=== PATIENT | male | born 1950 | race Caucasian/White ===

== ENCOUNTER 2019-01-20 06:23 | Day surgery (SDC) | payer OTHER ==
[2019-01-19 12:41] LABS: Absolute Lymphocytes (CBC) 0.4 K/uL (0.7-4.9); Absolute Monocytes 0.3 K/uL (0.1-1.3); Absolute Neutrophil 6.3 K/uL (1.8-8.0); Basophils % 0.4 % (0-1.3); Eosinophils % 0.4 % (0-4.4); Hematocrit 45.2 % (39.6-49.0); Lymphocytes % 5.3 % (15.3-44.8); MPV 8.6 fL (7.6-11.3); Monocytes % 4.6 % (3.3-12.3); RBC Red Blood Cell Count 4.71 M/uL (4.33-5.43)
--- NOTE | 2019-01-19 14:59 | EKG ---
Test Date: 2019-01-19 Test Time: 12:32:05 Case Operator: SAL MEASUREMENT RESULTS: Intervals: Rate: 65 MA: 162 QRSD: 78 QT: 386 QTc: 401 [place]: P: 61 MA: 162 QRS: 57 T: 57 INTERPRETIVE STATEMENTS: Normal sinus rhythm Normal ECG No previous ECG available for comparison Electronically Signed On 01-19-19 14:58:48 CDT by Jese Brewster
--- OUTSIDE RECORDS SUMMARY | 2019-01-20 06:27 | XMS REPORT | Continuity of Care Document ---
:1950 Author Organization Interface Problems Problem Status Onset Date Classification Date Comments Source Reported Medications Medication Details Route Status Patient Ordering Order Source Instructions Provider Date Allergies, Adverse Reactions, Alerts Substance Category Reaction Severity Reaction Status Date Comments Source type Reported Immunizations Immunization Date Given Site Status Last Updated Comments Source Results Order Results Value Reference Date Interpretation Comments Source Name Range Vital Signs Vital Sign Value Date Comments Source Encounters Location Location Encounter Encounter Reason Attending ADM DC Status Source Details Type Number For Provider Date Date Visit Outpatient [id number] EVER 09/02 [facility] Outpatient [id number] EVER 09/29 [facility] Outpatient [id number] Ever 11/11 [facility] Outpatient [id number] Ever 03/10 [facility] Procedures Procedure Code Date Perfomer Comments Source
--- OUTSIDE RECORDS SUMMARY | 2019-01-20 06:28 | XMS REPORT ---
:1950 Author Organization eClinicalWorks Care Team Providers Name Role Phone Mahad Ranjit Provider Role Unavailable Allergies, Adverse Reactions, Alerts Substance Reaction Event Type N.K.D.A. 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, lumbar region Assessment Left hip pain M25.552 Active Assessment Venous stasis dermatitis of both I87.2 Active lower extremities Assessment Tobacco use disorder F17.200 Active Assessment Hemangioma of 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 Active Assessment GERD without esophagitis K21.9 Active Assessment Venous insufficiency I87.2 Active Assessment Lumbosacral radiculopathy M54.17 Active Assessment HTN (hypertension), benign I10 Active Medications Medication Code System Code Instructions Start End Date Status Dosage Date Ibuprofen [facility] 12894190615 200 MG Orally Active 1 tablet Three times a day with food or milk as needed Lisinopril ND 34793126756 20 MG Orally Once Active 1 tablet a day Nicorette ND 16950240099 4 MG Mouth/Throat Active 1 piece as 24 time(s) a day needed Results No Known Results Summary Purpose eClinicalWorks Submission
--- OUTSIDE RECORDS SUMMARY | 2019-01-20 06:28 | XMS REPORT ---
:1950 Author Organization eClinicalWorks Care Team Providers Name Role Phone Mahad [facility] Provider Role Unavailable Allergies, Adverse Reactions, Alerts [...] (hypertension), benign I10 Active Medications Medication Code Code Instructions Start End Status Dosage System Date Date Gabapentin ND 60235527341 300 MG Orally Active 1 capsule Once a day Chantix [facility] 53481623304 0.5 MG X 11 & 1 December 25January Active as directed Starting Month MG X 42 Orally 2018 08, Use as directed 2018 Lisinopril ND 55708280184 30 MG Orally Active 1 tablet Once a day Ibuprofen ND 84518110761 200 MG Orally Active 1 tablet Three times a with food day or milk as needed Nicorette ND 47373647208 4 MG December 25, Inactive 1 piece as Mouth/Throat 2018 needed time(s) a day Chantix ND 52265667829 1 MG Orally December 25, Nov 05, Active 1 tablet Continuing Twice a day 20182018 [facility] Lisinopril [facility] 39821495129 20 Orally Once Active 1 tablet a day Results No Known Results Summary Purpose eClinicalWorks Submission
--- OUTSIDE RECORDS SUMMARY | 2019-01-20 06:28 | XMS REPORT ---
:1950 Author Organization eClinicalWorks Care Team Providers Name Role Phone Mahad Ranjit Provider Role Unavailable Allergies, Adverse Reactions, Alerts Substance Reaction Event Type N.K.D.A. 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 Active Problem HTN (hypertension), benign I10 Active Problem Tobacco use disorder F17.200 Active Problem GERD without esophagitis K21.9 Active Problem Lumbosacral radiculopathy M54.17 Active Problem Left hip pain M25.552 Active Assessment Left hip pain M25.552 Active Assessment GERD without esophagitis K21.9 Active Assessment Tobacco use disorder F17.200 Active Assessment Osteoarthritis of spine with 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
--- OUTSIDE RECORDS SUMMARY | 2019-01-20 06:28 | XMS REPORT ---
[...] Instructions Start End Date Status Dosage Date Nicotine ND 52837453986 21 MG/24HR March 17May 16, Active 1 patch to Transdermal Once 2017 2017 skin a day Ibuprofen ND 83039481207 200 MG Orally Active 1 tablet Three times a day with food or milk as needed Nicorette ND 36849628663 4 MG Mouth/Throat March 17, Active 1 piece as 24 time(s) a day 2018 needed Lisinopril ND 62928778458 10 MG Orally Once Active 1 tablet a day Lisinopril NDC 74796403751 10 Orally Once a Active 1 tablet day Results No Known Results Summary Purpose eClinicalWorks Submission
[2019-01-20] MEDS ORDERED: Ringers Lactate 1,000 ML IV ONE (06:51)
[2019-01-20] MEDS ORDERED: CEFAZOLIN/SWI 1gm 1 GM/10 ML SYR ONE (07:16)
[2019-01-20] MEDS ORDERED: LIDOCAINE 1% MPF 30 ML VIAL ONE (07:20)
[2019-01-20] MEDS ORDERED: PROPOFOL 200 MG/20 ML VIAL IV ONE ×2 (07:24→07:46)
[2019-01-20] MEDS ORDERED: LIDOCAINE 2% MPF 5 ML VIAL ONE (07:24)
[2019-01-20] MEDS ORDERED: MIDAZOLAM HCL 2 MG/2 ML INJ ONE (07:24)
[2019-01-20] MEDS ORDERED: Mastisol Adhesive Liq ONE (08:11)
--- NOTE | 2019-01-20 13:56 | OP ---
Date of Procedure: 01/20/2019 Surgeon: Kashmir Juan MD Preoperative Diagnosis: Left-sided headache, rule out temporal arteritis. Postoperative Diagnosis: Left-sided headache, rule out temporal arteritis. Procedure: Left temporal artery biopsy, Doppler aided. Estimated Blood Loss: Minimal. Specimen: Left temporal artery. Findings: As above. Anesthesia: MAC. Complications: None. Disposition: The patient tolerated the procedure in stable condition, taken to Recovery in good gene ral condition. Description Of Procedure: The patient was brought to the OR and placed in supine position. MAC anes thesia was given. The patient was prepped and draped in usual sterile fashion. Then, Doppler device was used to isolate the brain to the temporal artery, anterior and superior to the left ear. Then, a 4 cm incision was made after lidocaine 1% was infiltrated locally. A 15 blade was used to make an i ncision. Subcutaneous tissue was divided and deep to that, a branch of the temporal artery was identi fied and approximately a 4 cm segment was identified. Proximal and distal control were obtained. Ash e branches were isolated and then, 4 cm branch was excised and sent to pathology. A 4-0 silk was used to tie off the end. Wounds were irrigated. Bleeding was controlled with cautery. Then, 4-0 chromic was used for approximate subcutaneous tissue and close the skin. Sterile dressing was applied. The patient was awakened and taken to Recovery in good general condition. Discharge Note: The patient will go to Day Surgery and home when stable. Disposition: Home. Condition: Stable. Discharge Instructions: Resume home medications and diet. Activity as tolerated. No heavy lifting. Remove outer dressing in 2 days. Shower. Keep wound clean and dry. Keep Steri-Strips on at all t imes. Follow up in my office in 2 weeks. Call for appointment. Follow up with Dr. Mallory in 1 week. Follow up with Dr. Bhardwaj. The patient will be maintained on steroids until pathology comes back. /MODL Voice ID: [id number] Report ID: [id number]
== END 2019-01-20 08:45 | disposition home or self-care (01) ==
LOC: OR 06:23
PROVIDERS: ATTEND Surgery
PROC: 03BT3ZX Excision of Left Temporal Artery, Percutaneous Approach, Diagnostic (ICD-10-PCS; principal; 2019-01-20 07:30)
DX: R51 Headache (principal); I10 Essential (primary) hypertension; F17.200 Nicotine dependence, unspecified, uncomplicated; Z79.899 Other long term (current) drug therapy
CPT/HCPCS: 37609; 93005; 85025; 36415; 88305; J2704 ×2; J2250; J0690

== ENCOUNTER 2019-04-01 19:42 | Emergency (ER) | payer OTHER ==
--- OUTSIDE RECORDS SUMMARY | 2019-04-01 19:45 | XMS REPORT | Summary of Care ---
:1950 Author Organization [facility] Address [address] [place] [address]- Care Team Providers Name Role Phone Perico Mallory Primary Care Physician Encounter [facility] Ben_roldan(FIN) [id number] Date(s): 03/24/19 - 03/24/19 [facility] [address] [place] [address]- [phone] Discharge Disposition: Home or Self Care Attending Physician: Perico Mallory MD Referring Physician: Elvin Weir MD Vital Signs Most recent to oldest [Reference Range]: 1 Height 170.18 cm (03/24/19 2:06 PM) Blood Pressure [90-140/60-90 mmHg] 149/77 mmHg *HI* (03/24/19 2:06 PM) Respiratory Rate [14-20 BRMIN] 16 BRMIN (03/24/19 2:06 PM) Peripheral Pulse Rate [60-100 bpm] 85 bpm (03/24/19 2:06 PM) Weight 112.727 kg (03/24/19 2:06 PM) Body Mass Index 38.92 m2 (03/24/19 2:06 PM) Problem List Condition Effective Dates Status Health Status Informant NICOLETTE positive(Confirmed) Active Hypertension(Confirmed) Active Lumbar radiculopathy(Confirmed) Active Monoclonal gammopathy(Confirmed) Active Morbid obesity(Confirmed) Active Peripheral neuropathy(Confirmed) Active Temporal arteritis(Confirmed) Active Allergies, Adverse Reactions, Alerts No Known Medication Allergies Medications gabapentin 300 mg oral capsule 300 mg=1 cap, PO, TID, # 90 cap, 5 Refill(s), Pharmacy: [facility] # [id number] Start Date: 03/24/19 Stop Date: 09/20/19 Status: OrderedpredniSONE 20 mg oral tablet 20 mg=1 tab, PO, Daily, X 30 day, # 30 tab, 2 Refill(s), Pharmacy: [facility] #[id number] Start Date: 03/24/19 Stop Date: 06/22/19 Status: OrderedVitamin D3 2000 intl units oral tablet 2,000 IntlUnit=1 tab, PO, Daily, # 30 tab, 3 Refill(s), Pharmacy: [id number] Start Date: 02/16/19 Stop Date: 06/16/19 Status: OrderedZanaflex 4 mg oral capsule 4 mg=1 cap, PO, Bedtime, # 30 cap, 2 Refill(s), Pharmacy: [facility] # [id number] Start Date: 03/24/19 Stop Date: 06/22/19 Status: Ordered Results No data available for this section Immunizations No data available for this section Procedures Procedure Date Related Diagnosis Body Site Status Ablation Completed Social History Social History Type Response Employment/School 1 Alcohol Current, Type Beer.2 Smoking Status Current every day smoker; Type: Cigarettes; Exposure to Tobacco Smoke Unable to obtain; Cigarette Smoking Last 365 Days Unable to obtain ; Reg Smoking Cessation Counseling No3 entered on: 03/24/19 1Can release medical information to Dr. Tobin-PCP & friend- Dominique Garcia2Dmohan bahena [email or web address] everyday Assessment and Plan No data available for this section
--- OUTSIDE RECORDS SUMMARY | 2019-04-01 19:45 | XMS REPORT | Summary of Care ---
:1950 Author Organization [facility] Address [address] [place] [address]- Care Team Providers Name Role Phone Perico Mallory Primary Care Physician Encounter [facility] Encntr_roldan(FIN) [id number] Date(s): 09/02/18 - 09/02/18 [facility] [address] [place] [address]- [phone] Discharge Disposition: Home or Self Care Attending Physician: Perico Mallory MD Referring Physician: Elvin Weir MD Vital Signs No data available for this section Problem List Condition Effective Dates Status Health Status Informant NICOLETTE positive(Confirmed) Active Hypertension(Confirmed) Active Lumbar radiculopathy(Confirmed) Active Monoclonal gammopathy(Confirmed) Active Morbid obesity(Confirmed) Active Peripheral neuropathy(Confirmed) Active Temporal arteritis(Confirmed) Active Allergies, Adverse Reactions, Alerts No Known Medication Allergies Medications No data available for this section Results No data available for this section [...] Reg Smoking Cessation Counseling No3 entered on: 03/03/19 1Can release medical information to Dr. Tobin-PCP & friend- Dominique Garcia2Dmohan bahena [id number] everyday Assessment and Plan No data available for this section
--- OUTSIDE RECORDS SUMMARY | 2019-04-01 19:45 | XMS REPORT | Continuity of Care Document ---
:1950 Author Organization [employer] Care Team Providers Name Role Phone [facility] [employer] Unavailable Unavailable Problems Problem Status Onset Classification Date Comments Source Date Reported NICOLETTE positive Active Problem 03/27/2019 [facility] Hypertension Active Problem 03/27/2019 [facility] Lumbar Active Problem 03/27/2019 [facility] radiculopathy [facility] Monoclonal Active Problem 03/27/2019 [facility] gammopathy [facility] Morbid obesity Active Problem 03/27/2019 [facility] Peripheral Active Problem 03/27/2019 [facility] neuropathy [facility] Temporal Active Problem 03/27/2019 [facility] arteritis [facility] Medications Medication Details Route Status Patient Ordering Order Source Instructions Provider Date tizanidine 4 4 mg=1 cap, Active [facility] MG Oral PO, Bedtime, 019 Neuro Capsule # 30 cap, 2 [Zanaflex] Refill(s), Pharmacy: [facility] #[id number] gabapentin 300 mg=1 Active [facility] 300 MG Oral cap, PO, 019 Neuro Capsule TID, # 90 cap, 5 Refill(s), Pharmacy: [facility] #[id number] predniSONE 20 20 mg=1 tab, Active [facility] mg oral PO, Daily, X 019 Neuro tablet 30 day, # 30 tab, 2 Refill(s), Pharmacy: [facility] #[id number] baclofen 10 10 mg=1 tab, Active [facility] mg oral PO, Bedtime, 019 Neuro tablet # 30 tab, 3 Refill(s), Pharmacy: [id number] predniSONE 20 40 mg=2 tab, Active [facility] mg oral PO, Daily, X 019 Neuro tablet 30 day, # 60 tab, 2 Refill(s), Pharmacy: [facility] [id number] Vitamin D3 2,000 Active [facility] 2000 intl IntlUnit=1 019 Neuro units oral tab, PO, tablet Daily, # 30 tab, 3 Refill(s), [facility]acy: [id number] predniSONE 20 40 mg=2 tab, Active [facility] mg oral PO, Daily, X 019 Neuro tablet 30 day, # 60 tab, 2 Refill(s), Pharmacy: [facility] [id number] predniSONE 20 20 mg=1 tab, Inactive [facility] mg oral PO, Daily, X 019 Neuro tablet 30 day, # 30 tab, 2 Refill(s), [id number] predniSONE 20 20 mg=1 tab, No Longer [facility] mg oral PO, Daily, X Active 019 Neuro tablet 30 day, # 30 tab, 2 Refill(s), Pharmacy: [id number] Allergies, Adverse Reactions, Alerts Substance Category Reaction Severity Reaction Status Date Comments Source type Reported No Known Assertion Drug [facility] Medication allergy Neuro Allergies Immunizations No Data Provided for This Section Results No Data Provided for This Section Pathology Reports No Data Provided for This Section Diagnostic Reports No Data Provided for This Section Consultation Notes No Data Provided for This Section Discharge Summaries No Data Provided for This Section History and Physicals No Data Provided for This Section Vital Signs Vital Sign Value Date Comments Source Height 170.18 cm 03/24/2019 [facility] Respitory Rate 16 03/24/2019 [facility] Heart Rate 85 03/24/2019 [facility] Weight 112.727 03/24/2019 [facility] BMI Calculated 38.92 03/24/2019 [facility] Systolic (mm Hg) 149 03/24/2019 [facility] Diastolic (mm Hg) 77 03/24/2019 [facility] BMI Calculated 37.67 03/03/2019 [facility] Weight 109.091 03/03/2019 [facility] Height 170.18 cm 03/03/2019 [facility] Systolic (mm Hg) 158 03/03/2019 [facility] Diastolic (mm Hg) 76 03/03/2019 [facility] Heart Rate 63 03/03/2019 [facility] Respitory Rate 16 03/03/2019 [facility] BMI Calculated 37.2 02/10/2019 [facility] Weight 107.727 02/10/2019 [facility] Height 170.18 cm 02/10/2019 [facility] Heart Rate 62 02/10/2019 [facility] Respitory Rate 16 02/10/2019 [facility] Systolic (mm Hg) 167 02/10/2019 [facility] Diastolic (mm Hg) 79 02/10/2019 [facility] Encounters Location Location Encounter Encounter Reason Attending ADM DC Status Source Details Type Number For Provider Date Date Visit Outpatient [id number] EVER 09/02 Active [facility] [id number] Ever 09/02 09/03 [facility] [id number] EVER 09/29 Active [facility] Outpatient [id number] Ever 11/11 Active [facility] [place] [facility]patient [id number] Ever 02/10 [facility] [id number] Ever 02/10 02/11 [facility] [place] [facility] [id number] Ever 03/03 [facility] [place] [facility] Outpatient [id number] Ever 03/03 03/04 [facility] [place] [facility] [id number] Ever 03/24 [facility] [place] [facility] [id number] Ever 03/24 03/25 [facility] [place] [facility] [id number] Ever 04/07 [facility] [place] Procedures Procedure Code Date Perfomer Comments Source Ablation [id number] [facility] Assessment and Plan No Data Provided for This Section Plan of Care No Data Provided for This Section Social History Social History Date Source Social History TypeResponse 09/29/2018 [facility] Employment/School 1 Alcohol Current, Type Beer.2 Smoking Status Current every day smoker; Type: Cigarettes; Exposure to Tobacco Smoke Unable to obtain; Cigarette Smoking Last 365 Days Unable to obtain; Reg Smoking Cessation Counseling No3 entered on: 03/24/19 1Can release medical information to Dr. Tobin-PCP and friend- Dominique Garcia2Dmohan bahena [email or web address] everyday Family History No Data Provided for This Section Advance Directives No Data Provided for This Section Functional Status No Data Provided for This Section
--- OUTSIDE RECORDS SUMMARY | 2019-04-01 19:46 | XMS REPORT ---
[...] Start End Date Status Dosage Date Nicorette [facility] 83033015058 4 MG Mouth/Throat Active 1 piece as 24 time(s) a day needed Ibuprofen ND 48558690966 200 MG Orally Active 1 tablet Three times a day with food or milk as needed Lisinopril [facility] 06240194411 20 MG Orally Once Active 1 tablet a day Results No Known Results Summary Purpose eClinicalWorks Submission
--- OUTSIDE RECORDS SUMMARY | 2019-04-01 19:46 | XMS REPORT ---
:1950 Author Organization eClinicalWorks Care Team Providers Name Role Phone Mahad [facility] Provider Role Unavailable Allergies, Adverse Reactions, [...] Status Dosage System Date Date Gabapentin ND 98278827096 300 MG Orally Active 1 capsule Once a day Chantix [facility] 81557830267 0.5 MG X 11 & 1 December 25January Active as directed Starting Month MG X 42 Orally 2018 08, Use as directed 2018 Lisinopril ND 84922775643 30 MG Orally Active 1 tablet Once a day Ibuprofen ND 97246837302 200 MG Orally Active 1 tablet Three times a with food day or milk as needed Nicorette ND 81750136652 4 MG December 25, Inactive 1 piece as Mouth/Throat 2018 needed time(s) a day Chantix ND 87000638855 1 MG Orally December 25, Nov 05, Active 1 tablet Continuing Twice a day 20182018 [facility] Lisinopril [facility] 08258767994 20 Orally Once Active 1 tablet a day Results No Known Results Summary Purpose eClinicalWorks Submission
--- OUTSIDE RECORDS SUMMARY | 2019-04-01 19:46 | XMS REPORT ---
[...] End Date Status Dosage Date Nicotine ND 52279082698 21 MG/24HR March 17May 16, Active 1 patch to Transdermal Once 2017 2017 skin a day Ibuprofen ND 49972751173 200 MG Orally Active 1 tablet Three times a day with food or milk as needed Nicorette ND 88961976605 4 MG Mouth/Throat March 17, Active 1 piece as 24 time(s) a day 2018 needed Lisinopril ND 18671444429 10 MG Orally Once Active 1 tablet a day Lisinopril NDC 38150622690 10 Orally Once a Active 1 tablet day Results No Known Results Summary Purpose eClinicalWorks Submission
--- OUTSIDE RECORDS SUMMARY | 2019-04-01 19:46 | XMS REPORT ---
[...] Start End Date Status Dosage Date Ibuprofen [facility] 98944725871 200 MG Orally Active 1 tablet Three times a day with food or milk as needed Lisinopril ND 08328395272 20 MG Orally Once Active 1 tablet a day Nicorette ND 17932472200 4 MG Mouth/Throat Active 1 piece as 24 time(s) a day needed Results No Known Results Summary Purpose eClinicalWorks Submission
[2019-04-01] MEDS ORDERED: FENTANYL CITR 100 MCG/2 ML ONE (20:11)
[2019-04-01 20:13] LABS: Absolute Lymphocytes (CBC) 0.4 K/uL (0.7-4.9); Basophils % 0.2 % (0-1.3); Hematocrit 43.6 % (39.6-49.0); Lymphocytes % 4.7 % (15.3-44.8); MPV 8.6 fL (7.6-11.3)
[2019-04-01 20:14] LABS: Protime INR 1.06
[2019-04-01 20:44] LABS: ALT/SGPT 16 U/L (12-78); AST/SGOT 23 U/L (15-37); Albumin 2.8 g/dL (3.4-5.0); Alkaline Phosphatase 71 U/L (45-117); BUN Blood Urea Nitrogen 17 mg/dL (7-18); Bicarbonate 25 mmol/L (21-32); Bilirubin Direct 0.2 mg/dL (0-0.2); Bilirubin Total 0.7 mg/dL (0.2-1.0); Glucose Level 92 mg/dL (74-106); Magnesium 1.9 mg/dL (1.8-2.4); NT PRO-BNP 150 pg/mL (<125); Potassium 3.9 mmol/L (3.5-5.1); Protein, Total 6.1 g/dL (6.4-8.2); Sodium Level 139 mmol/L (136-145); Troponin (Emerg Dept Use Only) < 0.02 ng/mL (0.0-0.045)
[2019-04-01 20:50] LABS: Blood Morphology Comment NOT SEEN (NOT SEEN); Platelet Estimate ADEQ; Urine White Blood Cell Casts OK
[2019-04-01] MEDS ORDERED: MORPHINE 2 MG/ML SYR ONE (21:44)
[2019-04-01] MEDS ORDERED: MORPHINE 4 MG/ML SYR ONE (21:45)
--- NOTE | 2019-04-02 00:05 | ER ---
Nurse's Notes [facility] Name: Harjit uDff Age: 69 yrs Sex: Male : 1950 Arrival Date: 04/01/2019 Time: 19:44 Bed 25 Private MD: Diagnosis: Polymyalgia rheumatica;Chest pain, unspecified Presentation: 04/01 19:54 Presenting complaint: Patient states: "I have been having chest pain with shortness of jd3 breath since this afternoon. everything hurts including my left shoulder, but that was hurting before and the doctor thinks it is my rotator cuff.". Transition of care: patient was not received from another setting of care. Onset of symptoms was April 01, 2019. Risk Assessment: Do you want to hurt yourself or someone else? Patient reports no desire to harm self or others. Initial Sepsis Screen: Does the patient meet any 2 criteria? No. Patient's initial sepsis screen is negative. Does the patient have a suspected source of infection? No. Patient's initial sepsis screen is negative. Care prior to arrival: None. 19:54 Method Of Arrival: Wheelchair jd3 19:54 Acuity: BRADY 3 jd3 Historical: - Allergies: 19:59 No Known Allergies; jd3 - Home Meds: 19:59 lisinopril 30 mg Oral tab 1 tab once daily [Active]; gabapentin 300 mg oral cap 1 cap jd3 daily [Active]; Vitamin D Oral 2000 unit daily [Active]; meloxicam 15 mg oral tab 1 tab once daily [Active]; tizanidine 4 mg oral cap 1 cap nightly [Active]; prednisone 20 mg Oral tab 2 tabs once daily [Active]; - PMHx: 19:59 Hypertension; jd3 - PSHx: 19:59 biopsy; jd3 - Immunization history:: Adult Immunizations up to date. - Social history:: Smoking status: Patient uses tobacco products, smokes one-half pack cigarettes per day, smokes one pack cigarettes per day. - Ebola Screening: : Patient negative for fever greater than or equal to 101.5 degrees Fahrenheit, and additional compatible Ebola Virus Disease symptoms. Screenin:48 Abuse screen: Denies threats or abuse. Denies injuries from another. Nutritional rr5 screening: No deficits noted. Tuberculosis screening: No symptoms or risk factors identified. Fall Risk IV access (20 points). Total Chaudhry Fall Scale indicates No Risk (0-24 pts). Assessment: 20:00 General: Appears in no apparent distress. uncomfortable, Behavior is calm, cooperative, rr5 appropriate for age. Pain: Complains of pain in chest Pain radiates to left arm Pain currently is 9 out of 10 on a pain scale. Quality of pain is described as aching, Pain began gradually, Is intermittent. 20:00 Neuro: Level of Consciousness is awake, alert, obeys commands, Oriented to person, rr5 place, time, situation, Appropriate for age. Cardiovascular: Reports chest pain, Capillary refill < 3 seconds Patient's skin is warm and dry. Cardiovascular:. Respiratory: Reports shortness of breath Airway is patent Respiratory effort is even, unlabored, Respiratory pattern is regular, symmetrical. GI: No signs and/or symptoms were reported involving the gastrointestinal system. : No signs and/or symptoms were reported regarding the genitourinary system. :. EENT: No signs and/or symptoms were reported regarding the EENT system. Derm: Skin Skin temperature is warm. Musculoskeletal: Circulation, motion, and sensation intact. Capillary refill Swelling present in right leg and left leg edema bilateral legs Reports pain in left arm. 21:00 Reassessment: Patient appears in no apparent distress at this time. Patient and/or rr5 family updated on plan of care and expected duration. Pain level reassessed. Patient is alert, oriented x 3, equal unlabored respirations, skin warm/dry/pink. awaiting for results. 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 22:00 Reassessment: Patient appears in no apparent distress at this time. Patient and/or rr5 family updated on plan of care and expected duration. Pain level reassessed. Patient is alert, oriented x 3, equal unlabored respirations, skin warm/dry/pink. 23:00 Reassessment: Patient appears in no apparent distress at this time. Patient is alert, rr5 oriented x 3, equal unlabored respirations, skin warm/dry/pink. repeat cardiac enzyme extracted and sent to laboratory awaiting for result. no complaints made. 04/02 00:00 Reassessment: Patient appears in no apparent distress at this time. Patient is alert, rr5 oriented x 3, equal unlabored respirations, skin warm/dry/pink. reassess by ED provider.discharge instruction given and explained without complaints made. Vital Signs: 04/01 19:59 BP 140 / 75; Pulse 81; Resp 19 S; Temp 98.5(O); Pulse Ox 95% on R/A; Weight 113.4 kg jd3 (R); Height 5 ft. 10 in. (177.80 cm) (R); Pain 9/10; 21:15 BP 138 / 83; Pulse 69; Resp 17; Pulse Ox 98% ; rr5 22:21 BP 141 / 72; Pulse 68; Resp 17; Pulse Ox 96% on R/A; ss 23:28 BP 125 / 75; Pulse 61; Resp 17; Pulse Ox 97% on R/A; Pain 5/10; rr5 04/02 00:00 BP 121 / 72; Pulse 65; Resp 19; Temp 98; Pulse Ox 99% ; Pain 5/10; rr5 04/01 19:59 Body Mass Index 35.87 (113.40 kg, 177.80 cm) jd3 ED Course: 04/01 19:44 Patient arrived in ED. cl3 19:49 Markus Resendiz, RN is Primary Nurse. rr5 19:55 Tierra Yost FNP-C is PHCP. snw 19:55 Matias Seo MD is Attending Physician. snw 19:55 EKG done, by ED staff, reviewed by Matias Seo MD. jp3 19:56 Triage completed. jd3 19:58 Inserted saline lock: 20 gauge in right antecubital area, using aseptic technique. ss Blood collected. Patient maintains SpO2 saturation greater than 95% on room air. 19:59 Arm band placed on. EKG completed in triage. Results shown to MD. jd3 20:00 Warm blanket given. Verbal reassurance given. equipment monitor phototypesetting on. Pulse ox on. NIBP on. jp3 20:00 Placed in gown. Bed in low position. Call light in reach. Side rails up X 1. Side rails jp3 up X2. 20:51 XRAY Chest (1 view) In Process Unspecified. EDMS 20:52 Shoulder Left 2 View In Process Unspecified. EDMS 21:00 US Extremity Venous W Compression Lee In Process Unspecified. EDMS 23:00 First set of blood cultures drawn by me, EKG done, by ED staff, reviewed by Tierra rrJeromy ALICEA. 04/02 00:15 No provider procedures requiring assistance completed. IV discontinued, intact, rr5 bleeding controlled, No redness/swelling at site. Pressure dressing applied. Administered Medications: 04/01 20:14 Drug: fentaNYL (PF) 50 mcg Route: IVP; Site: right antecubital; ss 20:14 Follow up: initial RASS score 0 ss 21:52 Drug: morphine 5 mg {Note: rass 0.} Route: IM; Site: right gluteus; rr5 23:00 Follow up: Response: No adverse reaction; RASS: Alert and Calm (0) rr5 04/02 00:13 Drug: Dilaudid 1 mg Route: IM; Site: left deltoid; rr5 00:27 Follow up: Response: No adverse reaction; Medication administered at discharge. rr5 Intake: Outcome: 00:04 Discharge ordered by . snjamel 00:15 Discharged to home ambulatory, with family. rr5 00:15 Condition: stable 00:15 Discharge instructions given to patient, family, Instructed on discharge instructions, follow up and referral plans. Demonstrated understanding of instructions, follow-up care, medications, Prescriptions given X 1. 00:28 Patient left the ED. rr5 Signatures: Dispatcher [employer] EDMS Tierra Yost FNP-C FNP-Parvinw Consuelo Ramirez RN RN ss Davies, Jonathon, RN RN Alan Jones jp3 Markus Resendiz RN RN rr5 Dom Allen cl3
[2019-04-02] MEDS ORDERED: HYDROMORPHONE HCL 1 MG/ML INJ ONE (00:06)
--- NOTE | 2019-04-02 00:06 | EDPHYS ---
Physician Documentation [facility] Name: Harjit Duff Age: 69 yrs Sex: Male : 1950 Arrival Date: 04/01/2019 Time: 19:44 Bed 25 Private MD: ED Physician Matias Seo HPI: 04/01 20:15 This 69 yrs old Male presents to ER via Wheelchair with complaints of Chest snw Pain. 20:15 Onset: The symptoms/episode began/occurred gradually, and became worse and became snw persistent. Associated signs and symptoms: Pertinent positives: chest pain, left shoulder and left knee. Modifying factors: The patient symptoms are alleviated by nothing. The patient has experienced similar episodes in the past. recently saw Dr. Mallory. on prednisone 20mg daily for weeks. Labs Saturday are unavailable to view. Recent x-rays. Sees Dr. Tobin.. Historical: - Allergies: 19:59 No Known Allergies; jd3 - Home Meds: 19:59 lisinopril 30 mg Oral tab 1 tab once daily [Active]; gabapentin 300 mg oral cap 1 cap jd3 daily [Active]; Vitamin D Oral 2000 unit daily [Active]; meloxicam 15 mg oral tab 1 tab once daily [Active]; tizanidine 4 mg oral cap 1 cap nightly [Active]; prednisone 20 mg Oral tab 2 tabs once daily [Active]; - PMHx: 19:59 Hypertension; jd3 - PSHx: 19:59 biopsy; jd3 - Immunization history:: Adult Immunizations up to date. - Social history:: Smoking status: Patient uses tobacco products, smokes one-half pack cigarettes per day, smokes one pack cigarettes per day. - Ebola Screening: : Patient negative for fever greater than or equal to 101.5 degrees Fahrenheit, and additional compatible Ebola Virus Disease symptoms. ROS: 20:14 Eyes: Negative for injury, pain, redness, and discharge, ENT: Negative for injury, snw pain, and discharge, Neck: Negative for injury, pain, and swelling. 20:14 Respiratory: Negative for shortness of breath, cough, wheezing, and pleuritic chest pain, Abdomen/GI: Negative for abdominal pain, nausea, vomiting, diarrhea, and constipation, Back: Negative for injury and pain, : Negative for injury, bleeding, discharge, and swelling, Skin: Negative for injury, rash, and discoloration, Neuro: Negative for headache, weakness, numbness, tingling, and seizure. 20:14 Constitutional: Positive for body aches. 20:14 Cardiovascular: Positive for chest pain. 20:14 MS/extremity: Positive for pain, of the anterior aspect of left shoulder and posterior aspect of left shoulder and left side of forehead and left knee. Exam: 20:10 Constitutional: This is a well developed, well nourished patient who is awake, alert, snw and in no acute distress. 20:10 Eyes: Pupils equal round and reactive to light, extra-ocular motions intact. Lids and lashes normal. Conjunctiva and sclera are non-icteric and not injected. Cornea within normal limits. Periorbital areas with no swelling, redness, or edema. ENT: Nares patent. No nasal discharge, no septal abnormalities noted. Tympanic membranes are normal and external auditory canals are clear. Oropharynx with no redness, swelling, or masses, exudates, or evidence of obstruction, uvula midline. Mucous membranes moist. Neck: Trachea midline, no thyromegaly or masses palpated, and no cervical lymphadenopathy. Supple, full range of motion without nuchal rigidity, or vertebral point tenderness. No Meningismus. Chest/axilla: Normal chest wall appearance and motion. Nontender with no deformity. No lesions are appreciated. Cardiovascular: Regular rate and rhythm with a normal S1 and S2. No gallops, murmurs, or rubs. Normal PMI, no JVD. No pulse deficits. Respiratory: Lungs have equal breath sounds bilaterally, clear to auscultation and percussion. No rales, rhonchi or wheezes noted. No increased work of breathing, no retractions or nasal flaring. Abdomen/GI: Soft, non-tender, with normal bowel sounds. No distension or tympany. No guarding or rebound. No evidence of tenderness throughout. Back: No spinal tenderness. No costovertebral tenderness. Full range of motion. Skin: Warm, dry with normal turgor. Normal color with no rashes, no lesions, and no evidence of cellulitis. Neuro: Awake and alert, GCS 15, oriented to person, place, time, and situation. Cranial nerves II-XII grossly intact. Motor strength 5/5 in all extremities. Sensory grossly intact. Cerebellar exam normal. Normal gait. Psych: Awake, alert, with orientation to person, place and time. Behavior, mood, and affect are within normal limits. 20:10 Head/face: Noted is swelling, that is moderate, of the left side of forehead and left temporal area, of the temporal artery biopsy - temporal arteritis. 20:10 Musculoskeletal/extremity: Extremities: grossly normal except: bilateral lower extremities with significant edema, left knee edema, pain. Pt states severe left shoulder and left knee pain, ROM: limited passive range of motion due to pain, Circulation is intact in all extremities. Sensation intact. Vital Signs: 19:59 BP 140 / 75; Pulse 81; Resp 19 S; Temp 98.5(O); Pulse Ox 95% on R/A; Weight 113.4 kg jd3 (R); Height 5 ft. 10 in. (177.80 cm) (R); Pain 9/10; 21:15 BP 138 / 83; Pulse 69; Resp 17; Pulse Ox 98% ; rr5 22:21 BP 141 / 72; Pulse 68; Resp 17; Pulse Ox 96% on R/A; ss 23:28 BP 125 / 75; Pulse 61; Resp 17; Pulse Ox 97% on R/A; Pain 5/10; rr5 04/02 00:00 BP 121 / 72; Pulse 65; Resp 19; Temp 98; Pulse Ox 99% ; Pain 5/10; rr5 04/01 19:59 Body Mass Index 35.87 (113.40 kg, 177.80 cm) jd3 MDM: 04/01 20:00 Patient medically screened. snw 04/02 00:05 Data reviewed: vital signs, nurses notes. Data interpreted: Pulse oximetry: on room air snw is 97 %. Interpretation: normal. Counseling: I had a detailed discussion with the patient and/or guardian regarding: the historical points, exam findings, and any diagnostic results supporting the discharge/admit diagnosis, lab results, radiology results, the need for outpatient follow up, to return to the emergency department if symptoms worsen or persist or if there are any questions or concerns that arise at home, smoking cessation. Special discussion: Based on the patient's history, exam, and Dx evaluation, there is no indication for emergent intervention or inpatient Tx. It is understood by the patient/guardian that if the Sx's persist or worsen they need to return immediately for re-evaluation. Based on the history and exam findings, there is no indication for further emergent testing or inpatient evaluation. I discussed with the patient/guardian the need to see the neurologist for further evaluation of the symptoms. I discussed with the patient/guardian the need to see the primary care provider for further evaluation of the symptoms. 04/01 19:59 Order name: Basic Metabolic Panel ss 04/01 19:59 Order name: CBC with Diff; Complete Time: 21:06 ss 04/01 19:59 Order name: LFT's; Complete Time: 20:47 ss 04/01 19:59 Order name: Magnesium; Complete Time: 20:47 ss 04/01 19:59 Order name: NT PRO-BNP; Complete Time: 20:47 ss 04/01 19:59 Order name: PT-INR; Complete Time: 20:20 ss 04/01 19:59 Order name: Troponin (emerg Dept Use Only); Complete Time: 20:47 ss 04/01 19:59 Order name: XRAY Chest (1 view) 04/01 20:00 Order name: Basic Metabolic Panel; Complete Time: 20:47 EDMS 04/01 20:07 Order name: Sed Rate; Complete Time: 20:42 snw 04/01 20:07 Order name: Blood Culture Adult (2) [facility] 04/01 20:18 Order name: CBC Smear Scan; Complete Time: 21:06 EDMS 04/01 23:17 Order name: Troponin (emerg Dept Use Only); Complete Time: 00:03 rr5 04/01 19:59 Order name: EKG; Complete Time: 20:01 ss 04/01 19:59 Order name: Cardiac monitoring; Complete Time: 19:59 ss 04/01 19:59 Order name: EKG - Nurse/Tech; Complete Time: 19:59 ss 04/01 19:59 Order name: IV Saline Lock; Complete Time: 20:00 ss 04/01 19:59 Order name: Labs collected and sent; Complete Time: 20:00 ss 04/01 19:59 Order name: O2 Per Protocol; Complete Time: 20:00 ss 04/01 19:59 Order name: O2 Sat Monitoring; Complete Time: 20:00 ss 04/01 20:07 Order name: US Extremity Venous W Compression Lee snw 04/01 20:46 Order name: Shoulder Left 2 View EDMS 04/01 21:29 Order name: Repeat Cardiac Enzymes at: 2300 with EKG at that time as well; Complete snw Time: 23:19 Administered Medications: 04/01 20:14 Drug: fentaNYL (PF) 50 mcg Route: IVP; Site: right antecubital; ss 20:14 Follow up: initial RASS score 0 ss 21:52 Drug: morphine 5 mg {Note: rass 0.} Route: IM; Site: right gluteus; rr5 23:00 Follow up: Response: No adverse reaction; RASS: Alert and Calm (0) rr5 04/02 00:13 Drug: Dilaudid 1 mg Route: IM; Site: left deltoid; rr5 00:27 Follow up: Response: No adverse reaction; Medication administered at discharge. rr5 Disposition: 04/02/19 00:04 Discharged to Home. Impression: Polymyalgia rheumatica, Chest pain, unspecified. - Condition is Stable. - Discharge Instructions: Nonspecific Chest Pain, Hypertension, Polymyalgia Rheumatica. - Prescriptions for orphenadrine citrate 100 mg Oral Tablet Sustained Release - take 1 tablet by ORAL route 2 times per day As needed; 20 tablet. - Medication Reconciliation Form, Thank You Letter, Antibiotic Education, Prescription Opioid Use form. - Follow up: Private Physician; When: 1 - 2 days; Reason: Recheck today's complaints, Continuance of care, Re-evaluation by your physician. Signatures: Dispatcher [employer] [facility] Tierra Yost, [employer]PER[employer]OR-Csnw Consuelo Ramirez RN RN ss Davies, Jonathon, RN RN jMarkus Stewart RN RN rr5 Corrections: (The following items were deleted from the chart) 04/01 20:46 20:08 Shoulder Right 2 View+[email or web address] ordered. [facility] 04/02 00:28 00:04 04/02/2019 00:04 Discharged to Home. Impression: Polymyalgia rheumatica; Chest rr5 pain, unspecified. Condition is Stable. Discharge Instructions: Nonspecific Chest Pain, Hypertension, Polymyalgia Rheumatica. Prescriptions for orphenadrine citrate 100 mg Oral Tablet Sustained Release - take 1 tablet by ORAL route 2 times per day As needed; 20 tablet. and Forms are Medication Reconciliation Form, Thank You Letter, Antibiotic Education, Prescription Opioid Use. Follow up: Private Physician; When: 1 - 2 days; Reason: Recheck today's complaints, Continuance of care, Re-evaluation by your physician. marianne
--- NOTE | 2019-04-02 07:26 | RAD REPORT ---
EXAM DESCRIPTION: US - Extrem Venous W Compress Lee - 04/01/2019 9:00 pm CLINICAL HISTORY: Bilateral leg pain swelling Preliminary findings provided at the time of the study. COMPARISON: None. TECHNIQUE: Real-time sonographic evaluation of the bilateral lower extremity common femoral, superfi cial femoral, popliteal and posterior tibial veins was performed. FINDINGS: Normal compressibility, flow augmentation, phasic flow and spontaneous flow are identified in the left and right lower extremity common femoral, superficial femoral, popliteal and posterior t ibial veins. No intraluminal filling defects seen. IMPRESSION: No DVT in either lower extremity.
--- NOTE | 2019-04-02 08:02 | RAD REPORT ---
EXAM DESCRIPTION: RAD - Chest Single View - 04/01/2019 8:51 pm CLINICAL HISTORY: Chest pain, shortness of breath COMPARISON: None. TECHNIQUE: AP portable chest image was obtained 2035 hours . FINDINGS: No focal mass or consolidation in the peripheral lung braga. Interstitial markings are mi ldly prominent in each base with the baseline for the patient unknown. Significant failure or volume overload doubtful. Fullness of each hilum is noted. There is a focal right suprahilar density. This i s probably vascular structure rather than mass. However, continued follow-up is needed. Heart size is upper normal. Upper lobe vasculature within normal limits. No measurable pleural effus ion and no pneumothorax. No acute bony abnormality seen. No acute aortic findings suspected. IMPRESSION: Baseline examination showing bilateral lung base interstitial opacification that could b e baseline for the patient or indicate interstitial edema or infiltrate. Small nodular focus right suprahilar region is likely vasculature but needs monitoring with follow-up chest film in 3- 4 months. Alternatively, CT chest imaging could be performed.
--- NOTE | 2019-04-02 08:04 | RAD REPORT ---
EXAM DESCRIPTION: RAD - Shoulder Left 2 View - 04/01/2019 8:51 pm CLINICAL HISTORY: Chest pain, left shoulder pain COMPARISON: None. TECHNIQUE: Internal and external rotation views of the left shoulder were obtained. FINDINGS: There is no fracture or dislocation. Moderately prominent AC joint degenerative changes ar e present and there is degenerative change along the undersurface of the acromion. Degenerative jacobo es with mild spurring seen at the superolateral margin humeral head. Acromial humeral joint space is narrowed. Findings suggest complete chronic rotator cuff tear IMPRESSION: Left shoulder joint degenerative changes are present as detailed above including suspect ed full-thickness rotator cuff tear. No acute finding.
--- NOTE | 2019-04-02 11:36 | EKG ---
Test Date: 2019-04-01 Test Time: 22:56:48 Md Psychiatry: RR MEASUREMENT RESULTS: Intervals: Rate: 69 VA: 148 QRSD: 72 QT: 378 QTc: 405 [place]: P: 73 VA: 148 QRS: 73 T: 73 INTERPRETIVE STATEMENTS: Normal sinus rhythm Normal ECG Compared to ECG 04/01/2019 19:50:17 Atrial premature complex(es) no longer present Electronically Signed On 04-02-19 11:34:41 CDT by Nitish Perez
--- NOTE | 2019-04-02 11:37 | EKG ---
Test Date: 2019-04-01 Test Time: 19:50:17 Window Installation Subcontractor: SIRISHA MEASUREMENT RESULTS: Intervals: Rate: 78 UT: 146 QRSD: 76 QT: 358 QTc: 408 [place]: P: 54 UT: 146 QRS: 56 T: 57 INTERPRETIVE STATEMENTS: Sinus rhythm with premature atrial complexes Otherwise normal ECG Compared to ECG 01/19/2019 12:32:05 Atrial premature complex(es) now present Electronically Signed On 04-02-19 11:34:51 CDT by Nitish Perez
== END 2019-04-02 00:28 | disposition home or self-care (01) ==
LOC: ER 19:42
DX: M35.3 Polymyalgia rheumatica (principal); R07.9 Chest pain, unspecified; M25.512 Pain in left shoulder; M25.562 Pain in left knee; I10 Essential (primary) hypertension; F17.210 Nicotine dependence, cigarettes, uncomplicated
CPT/HCPCS: 93005 ×2; 87040 ×2; 85025; 80048; 36415; 83735; 85610; 80076; 85652; 84484 ×2; 83880; 71045; 73030; 93970; J3010; J2270; J1170; 96372; 96374; 99285

== ENCOUNTER 2019-04-23 12:53 | Inpatient (IN) | payer OTHER ==
--- OUTSIDE RECORDS SUMMARY | 2019-04-23 12:54 | XMS REPORT | Continuity of Care Document ---
:1950 Author Organization [facility] Care Team Providers Name Role Phone [facility] Unavailable Unavailable Problems Problem Status Onset Classification Date Comments Source Date Reported NICOLETTE positive Active Problem 03/27/2019 [facility] Hypertension Active Problem 03/27/2019 [facility] Lumbar Active Problem 03/27/2019 [facility] radiculopathy [facility] Monoclonal Active Problem 03/27/2019 [facility] gammopathy [facility] Morbid obesity Active Problem 03/27/2019 [facility] Peripheral Active Problem 03/27/2019 [facility] neuropathy [facility] Temporal Active Problem 03/27/2019 [facility] arteritis 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/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 Neuro (finding) Disorder of Active Problem 04/10/2019 [facility] rotator cuff Neuro (disorder) Hypertensive Active Problem 04/10/2019 [facility] disorder, Neuro systemic arterial (disorder) Imaging of thorax Active Problem 04/10/2019 [facility] abnormal Neuro (finding) Lumbar Active Problem 04/10/2019 [facility] radiculopathy [facility] (disorder) Monoclonal Active Problem 04/10/2019 [facility] gammopathy [facility] (disorder) Morbid obesity Active Problem 04/10/2019 [facility] (disorder) Neuro Peripheral nerve Active Problem 04/10/2019 [facility] disease [facility] (disorder) Polymyalgia Active Problem 04/10/2019 [facility] rheumatica [facility] (disorder) Temporal Active Problem 04/10/2019 [facility] arteritis Neuro (disorder) Medications Medication Details Route Status Patient Ordering Order Source Instructions Provider Date duloxetine 30 30 mg=1 cap, Active [facility] Enteric PO, Daily, # 019 [facility] Coated Capsule 30 cap, 3 [Cymbalta] Refill(s), Pharmacy: [facility] #[id number] 12 HR 100 mg, PO, Active [facility] Orphenadrine BID, X 30 019 Neuro Citrate 100 MG day, # 60 Extended tab, 1 Release Tablet Refill(s), Pharmacy: [facility] #[id number] orphenadrine 100 mg, PO, Inactive 08/20/2 [facility] extended BID, 0 019 Neuro release Refill(s) meloxicam 15 MG 15 mg=1 tab, No Longer [facility] Oral Tablet PO, Daily, # Active 019 Neuro [Mobic] 30 tab, 2 Refill(s), Pharmacy: [facility] #[id number] tizanidine 4 MG 4 mg=1 cap, Active [facility] Oral Capsule PO, Bedtime, 019 Neuro [Zanaflex] # 30 cap, 2 Refill(s), Pharmacy: [facility] #[id number] gabapentin 300 300 mg=1 Active [facility] MG Oral Capsule cap, PO, 019 Neuro TID, # 90 cap, 5 Refill(s), Pharmacy: [facility] #[id number] predniSONE 20 20 mg=1 tab, Active [facility] mg oral tablet PO, Daily, X 019 Neuro 30 day, # 30 tab, 2 Refill(s), Pharmacy: [facility] #[id number] baclofen 10 mg 10 mg=1 tab, Active [facility] oral tablet PO, Bedtime, 019 Neuro # 30 tab, 3 Refill(s), Pharmacy: [facility] [id number] predniSONE 20 40 mg=2 tab, Active [facility] mg oral tablet PO, Daily, X 019 Neuro 30 day, # 60 tab, 2 Refill(s), Pharmacy: [facility] [id number] Vitamin D3 2000 2,000 Active [facility] intl units oral IntlUnit=1 019 Neuro tablet tab, PO, Daily, # 30 tab, 3 Refill(s), Pharmacy: [facility] [id number] predniSONE 20 40 mg=2 tab, Active [facility] mg oral tablet PO, Daily, X 019 Neuro 30 day, # 60 tab, 2 Refill(s), Pharmacy: [facility] [id number] predniSONE 20 20 mg=1 tab, Inactive [facility] mg oral tablet PO, Daily, X 019 Neuro 30 day, # 30 tab, 2 Refill(s), Pharmacy: [facility] [id number] predniSONE 20 20 mg=1 tab, No Longer [facility] mg oral tablet PO, Daily, X Active 019 Neuro 30 day, # 30 tab, 2 Refill(s), Pharmacy: [facility] [id number] Allergies, Adverse Reactions, Alerts Substance Category Reaction [...] Signs Vital Sign Value Date Comments Source Systolic (mm Hg) 124 04/07/2019 [facility] Diastolic (mm Hg) 69 04/07/2019 [facility] Heart Rate 76 04/07/2019 [facility] Respitory Rate 16 04/07/2019 [facility] Height 177.8 cm 04/07/2019 [facility] Weight 110 04/07/2019 [facility] BMI Calculated 34.8 04/07/2019 [facility] Height 170.18 cm 03/24/2019 [facility] Respitory Rate 16 03/24/2019 [facility] Heart Rate 85 03/24/2019 [facility] Weight 112.727 03/24/2019 [facility] BMI Calculated 38.92 03/24/2019 [facility] Systolic (mm Hg) 149 03/24/2019 [facility] Diastolic (mm Hg) 77 03/24/2019 [facility] BMI Calculated 37.67 03/03/2019 [facility] Weight 109.091 03/03/2019 [facility] Height 170.18 cm 03/03/2019 [facility] Systolic (mm Hg) 158 03/03/2019 [facility] Diastolic (mm Hg) 76 03/03/2019 [facility] Heart Rate 63 03/03/2019 [facility] Respitory Rate 16 03/03/2019 [facility] BMI Calculated 37.2 02/10/2019 [facility] Weight 107.727 02/10/2019 [facility] Height 170.18 cm 02/10/2019 [facility] Heart Rate 62 02/10/2019 [facility] Respitory Rate 16 02/10/2019 [facility] Systolic (mm Hg) 167 02/10/2019 [facility] Diastolic (mm Hg) 79 02/10/2019 [facility] Encounters Location Location Encounter Encounter Reason Attending ADM DC Status Source Details Type Number For Provider Date Date Visit Outpatient [id number] EVER 09/02 Active [facility] [place] [facility] Outpatient [id number] Ever 09/02 09/03 [facility] [place] [facility] [id number] EVER 09/29 Active [facility] [id number] Ever 11/11 Active [facility] Outpatient [id number] Ever 02/10 Active [facility] Outpatient [id number] Ever 02/10 02/11 [facility] [place] [facility] [id number] Ever 03/03 Active [facility] Outpatient [id number] Ever 03/03 03/04 [facility] [place] [facility] [id number] Ever 03/24 Active [facility] [place] [facility] Outpatient [id number] Ever 03/24 03/25 [facility] [place] [facility] [id number] Ever 04/07 Active [facility] Outpatient [id number] Ever 04/07 04/08 [facility] [place] Out[facility] [id number] Ever 05/05 Active [facility] [place] Procedures Procedure Code Date Perfomer Comments Source Ablation [id number] [facility] Assessment and Plan No Data Provided for This Section Plan of Care No Data Provided for This Section Social History Social History Date Source Social History TypeResponse 09/29/2018 [facility] Neuro Alcohol Current, Type Beer.1 Employment/School 2 Smoking Status Current every day smoker; Type: Cigarettes; Exposure to Tobacco Smoke Unable to obtain; Cigarette Smoking Last 365 Days Unable to obtain; Reg Smoking Cessation Counseling No3 entered on: 04/07/19 1Drinks beer [id number] release medical information to Dr. Tobin-PCP and friend - Dominique Choudhury everyday Family History No Data Provided for This Section Advance Directives No Data Provided for This Section Functional Status No Data Provided for This Section
--- OUTSIDE RECORDS SUMMARY | 2019-04-23 12:55 | XMS REPORT | Summary of Care ---
:1950 Author Organization [facility] Address [address] [place] [address]- Care Team Providers Name Role Phone Perico Mallory Primary Care Physician Encounter [facility] Ben_roldan(FIN) [id number] Date(s): 04/07/19 - 04/07/19 [facility] [address] [place] [address]- [phone] Discharge Disposition: Home or Self Care Attending Physician: Perico Mallory MD Referring Physician: Elvin Weir MD Vital Signs Most recent to oldest [Reference Range]: 1 Height 177.8 cm (04/07/19 1:21 PM) Blood Pressure [90-140/60-90 mmHg] 124/69 mmHg (04/07/19 1:21 PM) Respiratory Rate [14-20 BRMIN] 16 BRMIN (04/07/19 1:21 PM) Peripheral Pulse Rate [60-100 bpm] 76 bpm (04/07/19 1:21 PM) Weight 110 kg (04/07/19 1:21 PM) Body Mass Index 34.8 m2 (04/07/19 1:21 PM) Problem List Condition Effective Dates Status Health Status Informant NICOLETTE positive(Confirmed) Active Torn rotator cuff(Confirmed) Active Hypertension(Confirmed) Active Abnormal chest x-ray(Confirmed) Active Lumbar radiculopathy(Confirmed) Active Monoclonal gammopathy(Confirmed) Active Morbid obesity(Confirmed) Active Peripheral neuropathy(Confirmed) Active PMR (polymyalgia Active rheumatica)(Confirmed) Temporal arteritis(Confirmed) Active Allergies, Adverse Reactions, Alerts No Known Medication Allergies Medications Cymbalta 30 mg oral delayed release capsule 30 mg=1 cap, PO, Daily, # 30 cap, 3 Refill(s), Pharmacy: [facility] # [id number] Start Date: 04/07/19 Stop Date: 08/05/19 Status: OrderedMobic 15 mg oral tablet 15 mg=1 tab, PO, Daily, # 30 tab, 2 Refill(s), Pharmacy: [facility] # [id number] Start Date: 03/30/19 Stop Date: 04/07/19 Status: Discontinuedorphenadrine 100 mg oral tablet, extended release 100 mg, PO, BID, X 30 day, # 60 tab, 1 Refill(s), Pharmacy: [facility] #[id number] Start Date: 04/07/19 Stop Date: 06/06/19 Status: Orderedorphenadrine extended release 100 mg, PO, BID, 0 Refill(s) Start Date: 04/07/19 Stop Date: 04/07/19 Status: Discontinued Results No data available for this section Immunizations No data available for this section Procedures Procedure Date Related Diagnosis Body Site Status Ablation Completed Social History Social History Type Response Alcohol Current, Type Beer.1 Employment/School 2 Smoking Status Current every day smoker; Type: Cigarettes; Exposure to Tobacco Smoke Unable to obtain; Cigarette Smoking Last 365 Days Unable to obtain ; Reg Smoking Cessation Counseling No3 entered on: 04/07/19 1Drinks beer [email or web address] release medical information to Dr. Tobin-PCP & friend - Dominique [id number] everyday Assessment and Plan No data available for this section
--- OUTSIDE RECORDS SUMMARY | 2019-04-23 12:55 | XMS REPORT ---
:1950 Author Organization [employer] Care Team Providers Name Role Phone [facility] Provider Role Unavailable Allergies, Adverse Reactions, Alerts [...] Status Dosage System Date Date Gabapentin ND 22189525441 300 MG Orally Active 1 capsule Once a day Chantix [facility] 02603314712 0.5 MG X 11 & 1 December 25January Active as directed Starting Month MG X 42 Orally 2018 08, Use as directed 2018 Lisinopril ND 04095239211 30 MG Orally Active 1 tablet Once a day Ibuprofen ND 54300214598 200 MG Orally Active 1 tablet Three times a with food day or milk as needed Nicorette ND 83452557752 4 MG December 25, Inactive 1 piece as Mouth/Throat 2018 needed time(s) a day Chantix ND 21044540830 1 MG Orally December 25, Nov 05, Active 1 tablet Continuing Twice a day 20182018 [facility] Lisinopril [facility] 53461541500 20 Orally Once Active 1 tablet a day Results No Known Results Summary Purpose [employer] Submission
--- OUTSIDE RECORDS SUMMARY | 2019-04-23 12:55 | XMS REPORT ---
[...] Start End Date Status Dosage Date Nicorette [facility] 07329795175 4 MG Mouth/Throat Active 1 piece as 24 time(s) a day needed Ibuprofen ND 06757880095 200 MG Orally Active 1 tablet Three times a day with food or milk as needed Lisinopril [facility] 15584482619 20 MG Orally Once Active 1 tablet a day Results No Known Results Summary Purpose [employer] Submission
--- OUTSIDE RECORDS SUMMARY | 2019-04-23 12:55 | XMS REPORT ---
[...] End Date Status Dosage Date Nicotine ND 23857109217 21 MG/24HR March 17May 16, Active 1 patch to Transdermal Once 2017 2017 skin a day Ibuprofen ND 77237035588 200 MG Orally Active 1 tablet Three times a day with food or milk as needed Nicorette ND 42698269836 4 MG Mouth/Throat March 17, Active 1 piece as 24 time(s) a day 2018 needed Lisinopril ND 87781819305 10 MG Orally Once Active 1 tablet a day Lisinopril NDC 82473507114 10 Orally Once a Active 1 tablet day Results No Known Results Summary Purpose [employer] Submission
--- OUTSIDE RECORDS SUMMARY | 2019-04-23 12:55 | XMS REPORT ---
[...] Start End Date Status Dosage Date Ibuprofen [facility] 89777506667 200 MG Orally Active 1 tablet Three times a day with food or milk as needed Lisinopril ND 72611990443 20 MG Orally Once Active 1 tablet a day Nicorette ND 37077775102 4 MG Mouth/Throat Active 1 piece as 24 time(s) a day needed Results No Known Results Summary Purpose [employer] Submission
[2019-04-23] MEDS ORDERED: NA CHLORIDE 0.9% 1,000 ML ONE ×3 (13:20→15:52)
[2019-04-23 13:36] LABS: Absolute Lymphocytes (CBC) 0.5 K/uL (0.7-4.9); Basophils % 0.2 % (0-1.3); Hematocrit 46.5 % (39.6-49.0); Lymphocytes % 3.3 % (15.3-44.8); MPV 8.9 fL (7.6-11.3); RBC Red Blood Cell Count 4.81 M/uL (4.33-5.43)
[2019-04-23 13:42] LABS: Protime INR 1.11
[2019-04-23 13:58] LABS: Albumin 2.4 g/dL (3.4-5.0); Bilirubin Direct 0.3 mg/dL (0-0.2); Bilirubin Total 1.2 mg/dL (0.2-1.0); Magnesium 2.2 mg/dL (1.8-2.4); Potassium 4.8 mmol/L (3.5-5.1); Protein, Total 6.3 g/dL (6.4-8.2); Troponin (Emerg Dept Use Only) 0.04 ng/mL (0.0-0.045)
[2019-04-23 14:03] LABS: Blood Morphology Comment NOT SEEN (NOT SEEN); Platelet Estimate ADEQ; Urine White Blood Cell Casts OK
--- NOTE | 2019-04-23 14:21 | RAD REPORT ---
EXAM DESCRIPTION: CT - Head Brain Wo Cont - 04/23/2019 1:54 pm CLINICAL HISTORY: Headache and weakness COMPARISON: None TECHNIQUE: Computed axial tomography of the head was obtained. IV contrast was not requested. All CT scans are performed using dose optimization technique as appropriate and may include automated exposure control or mA/KV adjustment according to patient size. FINDINGS: A 6 x 3 centimeters soft tissue structure is present within the left supraorbital region e xtending into the left frontal scalp. An intracranial bleed is not seen . The ventricles are normal in caliber. No extra-axial fluid collection is noted. Fluid within the sinuses/ mastoids is not seen. IMPRESSION: A 6 x 3 centimeter left supraorbital mass extending into the left frontal scalp is of on certain etiology. It may represent a mass, inflammation or muscle hypertrophy. Further evaluation wi th MRI with contrast may be helpful for further evaluation
--- NOTE | 2019-04-23 14:34 | RAD REPORT ---
EXAM DESCRIPTION: Caleb Single View04/23/2019 1:33 pm CLINICAL HISTORY: Chest pain COMPARISON: none FINDINGS: 3.4 centimeter opacity mid left lung. Right lung appears clear. The heart is normal size IMPRESSION: Left lung opacity may represent pneumonia or mass. Further evaluation with unenhanced CT chest recommended
[2019-04-23] MEDS ORDERED: CEFTRIAXONE/SWI 1gm 1 GM/10 ML SYR ONE (15:52)
--- NOTE | 2019-04-23 15:58 | RAD REPORT ---
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 Noncalcified nodule is seen in the anterior left upper lobe measuring 9 x 7 mm (22/60). Several other smaller nodules ar e present in the left upper lobe subpleural location. Significant adenopathy is present within the me diastinum including in the pretracheal region measuring 30 x 27 mm, left hilar station measuring 44 x 33 mm, sub-carinal station measuring 23 x 37 mm, and right hilar station measuring 42 x 34 cm. Addit ionally mildly prominent left axillary lymphadenopathy is also present. No pericardial or pleural effusion. No lytic or blastic bone lesion. A large liver cyst is noted. Gallstones are present gallbladder. Few mildly prominent lymph nodes are also seen in the upper abdomen. All CT scans are performed using dose optimization technique as appropriate and may include automated exposure control or mA/KV adjustment according to patient size. IMPRESSION: Bulky lymphadenopathy is present in the mediastinum and hilar regions. Findings are nons pecific but could be related to lymphoma, sarcoidosis or metastatic disease.Followup PET-CT assessmen t may be useful further assessment. Small nodules are present predominately in the left upper lobe superimposed on prominent fibroemphyse matous changes.
[2019-04-23] MEDS ORDERED: AZITHROMYCIN IV 500 MG in NA CHLORIDE 0.9% 250 ML IVPB ONE (16:00)
[2019-04-23 16:20] LABS: Urine Bacteria <20 /HPF (NONE SEEN); Urine RBC <5 /HPF (NONE SEEN)
[2019-04-23 16:21] LABS: Urine Amorphous Sediment 1+ /HPF (NONE SEEN); Urine Culture Reflex Order NOT NEEDED; Urine Sperm PRESENT (NONE SEEN)
--- NOTE | 2019-04-23 16:31 | ER ---
Nurse's Notes [facility] Name: Harjit Duff Age: 69 yrs Sex: Male : 1950 Arrival Date: 04/23/2019 Time: 13:08 Bed 26 Private MD: Diagnosis: Hypotension;Dehydration Presentation: 04/23 13:10 Presenting complaint: EMS states: Pt c/o general body weakness for about a week. Pt ca1 also has chronic back and knee pains. Presenting complaint:. Transition of care: patient was not received from another setting of care. Onset of symptoms was April 23, 2019. Risk Assessment: Do you want to hurt yourself or someone else? Patient reports no desire to harm self or others. Initial Sepsis Screen: Does the patient meet any 2 criteria? Yes Does the patient have a suspected source of infection? No. Patient's initial sepsis screen is negative. Care prior to arrival: None. 13:10 Method Of Arrival: EMS: [facility] ca1 13:10 Acuity: BRADY 2 ca1 Triage Assessment: 13:16 General: Appears in no apparent distress. ill, Behavior is calm, cooperative, ca1 appropriate for age. Pain: Complains of pain in back, knees, joints Pain currently is 10 out of 10 on a pain scale. Is chronic. Historical: - Allergies: 13:16 No Known Allergies; ca1 - Home Meds: 13:16 gabapentin 300 mg Oral cap 1 cap daily [Active]; lisinopril 30 mg Oral tab 1 tab once ca1 daily [Active]; meloxicam 15 mg Oral tab 1 tab once daily [Active]; prednisone 20 mg Oral tab 1 tab once daily [Active]; Vitamin D Oral 2000 unit daily [Active]; tizanidine 4 mg Oral cap 1 cap nightly [Active]; orphenadrine citrate miscellaneous twice a day [Active]; duloxetine 30 mg oral cpDR 1 cap once daily [Active]; - PMHx: 13:16 Hypertension; ca1 - PSHx: 13:16 biopsy; ca1 - Immunization history:: Adult Immunizations not up to date. - Social history:: Smoking status: Patient uses tobacco products, smokes 1.5 packs per day. - Ebola Screening: : Patient negative for fever greater than or equal to 101.5 degrees Fahrenheit, and additional compatible Ebola Virus Disease symptoms Patient denies exposure to infectious person Patient denies travel to an Ebola-affected area in the 21 days before illness onset No symptoms or risks identified at this time. Screenin:20 Abuse screen: Denies threats or abuse. Denies injuries from another. Nutritional ca1 screening: No deficits noted. Tuberculosis screening: No symptoms or risk factors identified. Fall Risk Fall in past 12 months (25 points). IV access (20 points). Ambulatory Aid- Crutches/Cane/Walker (15 pts). Gait- Weak (10 pts.). Total Chaudhry Fall Scale indicates High Risk Score (45 or more points). Fall prevention measures have been instituted. Side Rails Up X 2 Frequent Obs/Assessments Occuring Family Present and informed to notify staff if the need to leave the bedside As available patient and family educated on Fall Prevention Program and Strategies. Assessment: 13:20 General: Appears in no apparent distress. ill, Behavior is calm, cooperative, ca1 appropriate for age. General: Reports fatigue for >3 days. Pain: Complains of pain in back Pain currently is 10 out of 10 on a pain scale. Is chronic. Neuro: Level of Consciousness is awake, alert, obeys commands, Oriented to person, place, time, situation. Cardiovascular: Heart tones S1 S2 present Capillary refill < 3 seconds Patient's skin is warm and dry. Pulses are all present. Edema is 1+ to left ankle, left foot, right ankle and right foot Rhythm is sinus tachycardia. Respiratory: Airway is patent Respiratory effort is even, unlabored, Respiratory pattern is regular, symmetrical, Breath sounds are clear bilaterally. GI: Abdomen is round non-distended, Bowel sounds present X 4 quads. Abd is soft and non tender X 4 quads. : No deficits noted. No signs and/or symptoms were reported regarding the genitourinary system. EENT: No deficits noted. No signs and/or symptoms were reported regarding the EENT system. Derm: Skin is intact, is healthy with good turgor, Skin is pink, warm \T\ dry. Musculoskeletal: Circulation, motion, and sensation intact. Capillary refill < 3 seconds, Range of motion: intact in all extremities. 14:14 Reassessment: Patient appears in no apparent distress at this time. Patient and/or ca1 family updated on plan of care and expected duration. Pain level reassessed. Patient is alert, oriented x 3, equal unlabored respirations, skin warm/dry/pink. 15:12 Reassessment: Patient appears in no apparent distress at this time. Patient and/or ca1 family updated on plan of care and expected duration. Pain level reassessed. Patient is alert, oriented x 3, equal unlabored respirations, skin warm/dry/pink. family at bedside. 15:30 Reassessment: Provider at bedside. ca1 16:20 Reassessment: Patient appears in no apparent distress at this time. Patient and/or ca1 family updated on plan of care and expected duration. Pain level reassessed. Patient is alert, oriented x 3, equal unlabored respirations, skin warm/dry/pink. Family Contact number of family: [phone], [phone]. 16:52 Reassessment: Dr. Vazquez at bedside. ca1 18:02 Reassessment: Patient appears in no apparent distress at this time. Patient and/or ca1 family updated on plan of care and expected duration. Pain level reassessed. Patient is alert, oriented x 3, equal unlabored respirations, skin warm/dry/pink. 18:23 Reassessment: US at bedside. ca1 18:53 Reassessment: Patient appears in no apparent distress at this time. Patient and/or ca1 family updated on plan of care and expected duration. Pain level reassessed. Patient is alert, oriented x 3, equal unlabored respirations, skin warm/dry/pink. Vital Signs: 13:16 BP 90 / 47; Pulse 107; Resp 18 S; Temp 98.8(O); Pulse Ox 96% on R/A; Weight 108.86 kg ca1 (R); Height 5 ft. 8 in. (172.72 cm) (R); Pain 10/10; 13:58 BP 89 / 56; Pulse 89; Resp 18 S; Pulse Ox 96% on R/A; ca1 15:12 BP 101 / 54; Pulse 90; Resp 16; Temp 98(TE); Pulse Ox 96% on R/A; ca1 15:33 BP 111 / 59; Pulse 99; Resp 19 S; Pulse Ox 96% on R/A; ca1 16:20 BP 98 / 54; Pulse 100; Resp 18 S; Pulse Ox 96% on R/A; ca1 16:53 BP 97 / 55; Pulse 98; Resp 19 S; Pulse Ox 98% on R/A; ca1 17:19 BP 99 / 57; Pulse 92; Resp 17; Temp 98.1(O); Pulse Ox 96% ; lt1 18:02 BP 102 / 60; Pulse 88; Resp 17; Pulse Ox 95% on R/A; ca1 18:53 BP 100 / 64; Pulse 99; Resp 20 S; Pulse Ox 97% on R/A; ca1 19:24 BP 106 / 53; Pulse 93; Resp 17 S; Temp 97.8(O); Pulse Ox 96% on R/A; ca1 13:16 Body Mass Index 36.49 (108.86 kg, 172.72 cm) ca1 ED Course: 13:08 Patient arrived in ED. ca1 13:08 Yasir Pineda NP is PHCP. pm1 13:08 Michael Toribio MD is Attending Physician. pm1 13:12 Triage completed. ca1 13:16 Arm band placed on right wrist. EKG completed in triage. Results shown to MD. EKG ca1 completed in triage. Results shown to MD. 13:20 Paz Hanks, CARLOZ is Primary Nurse. ca1 13:20 Patient has correct armband on for positive identification. Placed in gown. Bed in low ca1 position. Call light in reach. Side rails up X2. lining presser on. Pulse ox on. NIBP on. Warm blanket given. 13:20 No provider procedures requiring assistance completed. Inserted saline lock: 20 gauge ca1 in right antecubital area, using aseptic technique. ,using aseptic technique. by CARLOZ Reagan Blood collected. 13:37 XRAY Chest (1 view) In Process Unspecified. EDMS 13:54 CT Head Brain wo Cont In Process Unspecified. EDMS 14:30 Inserted saline lock: 20 gauge in left antecubital area, using aseptic technique. Blood ca1 collected. 14:30 First set of blood cultures drawn by me. ca1 14:35 Straight cath inserted, using sterile technique, 16 Fr. Specimen obtained. Returned ca1 jeane urine. Patient tolerated well. 14:47 Second set of blood cultures drawn by me. ca1 15:40 CT Chest Wo Con In Process Unspecified. EDMS 16:30 Irma Soria MD is Hospitalizing Provider. pm1 16:43 Ángel Vazquez MD is Hospitalizing Provider. pm1 17:09 CT Abd/Pelvis - Without Contrast In Process Unspecified. EDMS 19:33 Patient admitted, IV remains in place. ca1 Administered Medications: 13:21 Drug: NS 0.9% 1000 ml Route: IV; Rate: 1000 ml; Site: right antecubital; ca1 14:30 Follow up: Urine output 400 ml; Response: No adverse reaction; IV Status: Completed ca1 infusion 14:30 Drug: NS 0.9% 1000 ml Route: IV; Rate: 1 bolus; Site: left antecubital; ca1 15:17 Follow up: Response: No adverse reaction; IV Status: Completed infusion; IV Intake: ca1 1000ml 15:30 Follow up: Response: No adverse reaction; IV Status: Completed infusion; IV Intake: ca1 1000ml 15:59 Drug: Rocephin 1 grams Route: IV; Rate: calculated rate; Site: left antecubital; ca1 16:23 Follow up: Response: No adverse reaction; IV Status: Completed infusion ca1 15:59 Drug: NS 0.9% 1000 ml Route: IV; Rate: 100 ml/hr; Site: left antecubital; ca1 18:04 Follow up: IV Status: Infusion continued upon admission ca1 16:20 Drug: AZITHromycin 500 mg Route: IVPB; Infused Over: 1 hrs; Site: right antecubital; wh 18:04 Follow up: Response: No adverse reaction; IV Status: Completed infusion; IV Intake: ca1 500ml 16:21 Drug: NS 0.9% 500 ml Route: IV; Rate: bolus; Site: right antecubital; wh 18:03 Follow up: IV Status: Completed infusion; IV Intake: 500ml ca1 Intake: 15:16 IV: 2000ml (IV Fluid); Total: 2000ml. ca1 15:17 IV: 1000ml; Total: 3000ml. ca1 15:30 IV: 1000ml; Total: 4000ml. ca1 18:03 IV: 500ml; Total: 4500ml. ca1 18:04 IV: 500ml; Total: 5000ml. ca1 Output: 14:30 Urine: 400ml; Total: 400ml. ca1 15:16 Urine: 400ml (Straight Cath); Total: 800ml. ca1 Outcome: 16:30 Decision to Hospitalize by Provider. pm1 19:33 Admitted to Med/surg accompanied by tech, via stretcher, room 214, with chart, Report ca1 called to Jack Olivas RN 19:33 Condition: stable 19:33 Instructed on the need for admit. 19:55 Patient left the ED. ca1 Signatures: Dispatcher [employer] EDMS Yasir Pineda, [employer] ELEMENTARY ESL TEACHER pm1 Madina Salvador Cheryl, RN RN ca1 Suero, Ivett lt1
--- NOTE | 2019-04-23 16:32 | EDPHYS ---
Physician Documentation [facility] Name: Harjit Duff Age: 69 yrs Sex: Male : 1950 Arrival Date: 04/23/2019 Time: 13:08 Bed 26 Private MD: ED Physician Michael Toribio HPI: 04/23 14:21 This 69 yrs old Male presents to ER via EMS with complaints of General pm1 Weakness. 14:21 The patient presents to the emergency department with weakness of the entire body, pm1 generalized weakness. Onset: The symptoms/episode began/occurred 1 week(s) ago. Associated signs and symptoms: Pertinent negatives: chills, fever, headache, nausea, vomiting, diarrhea. Severity of symptoms: in the emergency department the symptoms are worse. Patient's baseline: Neuro: alert and fully oriented, Motor: no deficits. Current symptoms: generalized weakness. The patient has experienced similar episodes in the past, multiple times. The patient has been recently seen at the [facility] Emergency Department, for similar complaints labs were performed, X-rays were performed, about 1 week ago. 14:21 Patient has not been eating or drinking well for the past 1 week that he reports is due pm1 to his chronic pain. Historical: - Allergies: 13:16 No Known Allergies; ca1 - Home Meds: 13:16 gabapentin 300 mg Oral cap 1 cap daily [Active]; lisinopril 30 mg Oral tab 1 tab once ca1 daily [Active]; meloxicam 15 mg Oral tab 1 tab once daily [Active]; prednisone 20 mg Oral tab 1 tab once daily [Active]; Vitamin D Oral 2000 unit daily [Active]; tizanidine 4 mg Oral cap 1 cap nightly [Active]; orphenadrine citrate miscellaneous twice a day [Active]; duloxetine 30 mg oral cpDR 1 cap once daily [Active]; - PMHx: 13:16 Hypertension; ca1 - PSHx: 13:16 biopsy; ca1 - Immunization history:: Adult Immunizations not up to date. - Social history:: Smoking status: Patient uses tobacco products, smokes 1.5 packs per day. - Ebola Screening: : Patient negative for fever greater than or equal to 101.5 degrees Fahrenheit, and additional compatible Ebola Virus Disease symptoms Patient denies exposure to infectious person Patient denies travel to an Ebola-affected area in the 21 days before illness onset No symptoms or risks identified at this time. ROS: 14:21 Eyes: Negative for injury, pain, redness, and discharge, ENT: Negative for injury, pm1 pain, and discharge, Neck: Negative for injury, pain, and swelling, Cardiovascular: Negative for chest pain, palpitations, and edema. 14:21 Abdomen/GI: Negative for abdominal pain, nausea, vomiting, diarrhea, and constipation, Back: Negative for injury and pain, : Negative for injury, bleeding, discharge, and swelling, MS/Extremity: Negative for injury and deformity, Skin: Negative for injury, rash, and discoloration. 14:21 Constitutional: Positive for malaise, poor PO intake, Negative for body aches, chills, fever. 14:21 Respiratory: Positive for baseline shortness of breath, Negative for cough, sputum production, wheezing. 14:21 Neuro: Positive for weakness, of the generalized and bilateral legs, Negative for headache, numbness, tingling. Exam: 14:21 Head/Face: Normocephalic, atraumatic. Eyes: Pupils equal round and reactive to light, pm1 extra-ocular motions intact. Lids and lashes normal. Conjunctiva and sclera are non-icteric and not injected. Cornea within normal limits. Periorbital areas with no swelling, redness, or edema. Neck: Trachea midline, no thyromegaly or masses palpated, and no cervical lymphadenopathy. Supple, full range of motion without nuchal rigidity, or vertebral point tenderness. No Meningismus. 14:21 Chest/axilla: Normal chest wall appearance and motion. Nontender with no deformity. No lesions are appreciated. Cardiovascular: Regular rate and rhythm with a normal S1 and S2. No gallops, murmurs, or rubs. Normal PMI, no JVD. No pulse deficits. Respiratory: Lungs have equal breath sounds bilaterally, clear to auscultation and percussion. No rales, rhonchi or wheezes noted. No increased work of breathing, no retractions or nasal flaring. Abdomen/GI: Soft, non-tender, with normal bowel sounds. No distension or tympany. No guarding or rebound. No evidence of tenderness throughout. Back: No spinal tenderness. No costovertebral tenderness. Full range of motion. Skin: Warm, dry with normal turgor. Normal color with no rashes, no lesions, and no evidence of cellulitis. MS/ Extremity: Pulses equal, no cyanosis. Neurovascular intact. Full, normal range of motion. 14:21 Constitutional: The patient appears in no acute distress, alert, awake, comfortable, well developed, emaciated. 14:21 ENT: Mouth: Oral mucosa: dry, Tongue: displays fissures. 14:21 Neuro: Orientation: is normal, Mentation: is normal, Motor: strength is 5/5 in the right arm and left arm, Strength is 2/5 in the right leg and left leg. Vital Signs: 13:16 BP 90 / 47; Pulse 107; Resp 18 S; Temp 98.8(O); Pulse Ox 96% on R/A; Weight 108.86 kg ca1 (R); Height 5 ft. 8 in. (172.72 cm) (R); Pain 10/10; 13:58 BP 89 / 56; Pulse 89; Resp 18 S; Pulse Ox 96% on R/A; ca1 15:12 BP 101 / 54; Pulse 90; Resp 16; Temp 98(TE); Pulse Ox 96% on R/A; ca1 15:33 BP 111 / 59; Pulse 99; Resp 19 S; Pulse Ox 96% on R/A; ca1 16:20 BP 98 / 54; Pulse 100; Resp 18 S; Pulse Ox 96% on R/A; ca1 16:53 BP 97 / 55; Pulse 98; Resp 19 S; Pulse Ox 98% on R/A; ca1 17:19 BP 99 / 57; Pulse 92; Resp 17; Temp 98.1(O); Pulse Ox 96% ; lt1 18:02 BP 102 / 60; Pulse 88; Resp 17; Pulse Ox 95% on R/A; ca1 18:53 BP 100 / 64; Pulse 99; Resp 20 S; Pulse Ox 97% on R/A; ca1 19:24 BP 106 / 53; Pulse 93; Resp 17 S; Temp 97.8(O); Pulse Ox 96% on R/A; ca1 13:16 Body Mass Index 36.49 (108.86 kg, 172.72 cm) ca1 MDM: 13:19 Patient medically screened. pm1 13:36 ED course: Patient not given initial bolus of 30 mL/kg due to possible history of CHF pm1 and age. Patient uncertain about his medical history. Patient without fever or obvious signs of infection. Patient with reported baseline shortness of breath due to smoking history. Patient with history of decreased PO fluid intake for the past week. Therefore likely dehydration causing hypotension. Therefore I will give 1L NS at 1L/hr and reassess after each liter and determine if that patient needs additional fluids. 16:27 Data reviewed: vital signs. Data interpreted: Pulse oximetry: on room air is 96 %. pm1 Interpretation: normal. Counseling: I had a detailed discussion with the patient and/or guardian regarding: the historical points, exam findings, and any diagnostic results supporting the discharge/admit diagnosis, lab results, radiology results, the need for further work-up and treatment in the hospital. 16:50 Physician consultation: Ángel Vazquez MD was contacted at 16:50, regarding admission, pm1 patient's condition, would like further tests performed, CT scan of abdomen/pelvis without contrast r/o masses due to decreased appetite, in the emergency department to see patient at 16:50. 17:08 Physician consultation: Ángel Vaqzuez MD would like further tests performed, u/s venous pm1 and arterial R lower extremity and ETOH level. 04/23 13:14 Order name: Basic Metabolic Panel pm1 04/23 13:14 Order name: CBC with Diff; Complete Time: 14:06 pm1 04/23 13:14 Order name: LFT's pm04/23 13:14 Order name: Magnesium pm1 04/23 13:14 Order name: NT PRO-BNP pm1 04/23 13:14 Order name: PT-INR; Complete Time: 13:59 pm1 04/23 13:14 Order name: Troponin (emerg Dept Use Only) pm04/23 13:44 Order name: CBC Smear Scan; Complete Time: 14:06 EDMS 04/23 14:06 Order name: Procalcitonin; Complete Time: 15:31 pm1 04/23 14:06 Order name: Lactate; Complete Time: 15:26 pm1 04/23 14:06 Order name: Blood Culture Adult (2) pm1 04/23 14:06 Order name: Urine Microscopic Only; Complete Time: 16:30 pm1 04/23 14:39 Order name: Urine Dipstick--Ancillary (enter results); Complete Time: 16:58 bd 04/23 17:08 Order name: ETOH Level pm1 04/23 13:14 Order name: XRAY Chest (1 view); Complete Time: 14:46 pm1 04/23 13:21 Order name: CT Head Brain wo Cont; Complete Time: 14:35 pm1 04/23 15:27 Order name: CT Chest Wo Con; Complete Time: 16:06 pm1 04/23 16:49 Order name: CT Abd/Pelvis - Without Contrast; Complete Time: 17:40 pm1 04/23 17:04 Order name: Extremity Venous Uni Ltd pm1 04/23 17:08 Order name: Lower Extremity Artery Uni Ltd pm1 04/23 18:08 Order name: Lactate iw 04/23 18:56 Order name: Lipase EDNM 04/23 18:56 Order name: Thyroid Stimulating Hormone EDNM 04/23 19:03 Order name: Lactate EDNM 04/23 19:30 Order name: US EDMS 04/23 19:31 Order name: EDNM 04/23 13:14 Order name: EKG; Complete Time: 13:15 pm04/23 13:14 Order name: Cardiac monitoring; Complete Time: 13:18 pm1 04/23 13:14 Order name: EKG - Nurse/Tech; Complete Time: 13:18 pm04/23 13:14 Order name: IV Saline Lock; Complete Time: 13:18 pm04/23 13:14 Order name: Labs collected and sent; Complete Time: 13:18 pm04/23 13:14 Order name: O2 Per Protocol; Complete Time: 13:19 pm04/23 13:14 Order name: O2 Sat Monitoring; Complete Time: 13:19 pm04/23 13:14 Order name: Urine Dipstick-Ancillary (obtain specimen); Complete Time: 15:10 pm1 Administered Medications: 13:21 Drug: NS 0.9% 1000 ml Route: IV; Rate: 1000 ml; Site: right antecubital; ca1 14:30 Follow up: Urine output 400 ml; Response: No adverse reaction; IV Status: Completed ca1 infusion 14:30 Drug: NS 0.9% 1000 ml Route: IV; Rate: 1 bolus; Site: left antecubital; ca1 15:17 Follow up: Response: No adverse reaction; IV Status: Completed infusion; IV Intake: ca1 1000ml 15:30 Follow up: Response: No adverse reaction; IV Status: Completed infusion; IV Intake: ca1 1000ml 15:59 Drug: Rocephin 1 grams Route: IV; Rate: calculated rate; Site: left antecubital; [facility] 16:23 Follow up: Response: No adverse reaction; IV Status: Completed infusion ca1 15:59 Drug: NS 0.9% 1000 ml Route: IV; Rate: 100 ml/hr; Site: left antecubital; [facility] 18:04 Follow up: IV Status: Infusion continued upon admission ca1 16:20 Drug: AZITHromycin 500 mg Route: IVPB; Infused Over: 1 hrs; Site: right antecubital; 18:04 Follow up: Response: No adverse reaction; IV Status: Completed infusion; IV Intake: ca1 500ml 16:21 Drug: NS 0.9% 500 ml Route: IV; Rate: bolus; Site: right antecubital; 18:03 Follow up: IV Status: Completed infusion; IV Intake: 500ml ca1 Disposition: 04/23/19 16:30 Hospitalization ordered by Ángel Vazquez for Inpatient Admission. Preliminary diagnosis are Hypotension, Dehydration. - Bed requested for Telemetry/MedSurg (Inpatient). - Status is Inpatient Admission. ca1 - Condition is Stable. - Problem is new. - Symptoms have improved. UTI on Admission? No Addendum: 04/25/2019 07:01 Co-signature as Attending Physician, Michael Toribio MD. r n Signatures: Dispatcher [employer] EDMS Gogo Mims Roman, MD MD rn Marinas, Patrick, [employer] TURN OPERATOR pm1 Madina Salvador Paz Hanks RN RN ca1 Corrections: (The following items were deleted from the chart) 04/23 16:43 16:30 Hospitalization Ordered by Irma Soria MD for Inpatient Admission. Preliminary pm1 diagnosis is Hypotension; Dehydration. Bed requested for Telemetry/MedSurg (Inpatient). Status is Inpatient Admission. Condition is Stable. Problem is new. Symptoms have improved. UTI on Admission? No. pm1 18:09 16:43 04/23/2019 16:30 Hospitalization Ordered by Ángel Vazquez MD for Inpatient bd Admission. Preliminary diagnosis is Hypotension; Dehydration. Bed requested for Telemetry/MedSurg (Inpatient). Status is Inpatient Admission. Condition is Stable. Problem is new. Symptoms have improved. UTI on Admission? No. pm1 19:55 18:09 04/23/2019 16:30 Hospitalization Ordered by Ángel Vazquez MD for Inpatient ca1 Admission. Preliminary diagnosis is Hypotension; Dehydration. Bed requested for Telemetry/MedSurg (Inpatient). Status is Inpatient Admission. Condition is Stable. Problem is new. Symptoms have improved. UTI on Admission? No. bd
[2019-04-23 16:54] LABS: Urine Blood NEGATIVE (NEG); Urine Glucose NEGATIVE (NEG); Urine Protein TRACE (NEG); Urine Specific Gravity >1.030 (1.005-1.030)
--- NOTE | 2019-04-23 16:55 | EKG ---
Test Date: 2019-04-23 Test Time: 13:23:39 Projector Operator: ALLAN MEASUREMENT RESULTS: Intervals: Rate: 106 OK: 134 QRSD: 74 QT: 306 QTc: 406 [place]: P: 32 OK: 134 QRS: 24 T: 56 INTERPRETIVE STATEMENTS: Sinus tachycardia Otherwise normal ECG Compared to ECG 04/01/2019 22:56:48 Sinus rhythm no longer present Electronically Signed On 04-23-19 16:54:26 CDT by Nitish Perez
--- NOTE | 2019-04-23 17:23 | RAD REPORT ---
EXAM DESCRIPTION: CT - Abdomen Pelvis Wo Contrast - 04/23/2019 5:08 pm CLINICAL HISTORY: Abdominal pain. r/o mass COMPARISON: No comparisons TECHNIQUE: CT imaging of the abdomen and pelvis was performed without contrast. Solid organ, bowel a nd vascular assessment is limited due to lack of IV and oral contrast. All CT scans are performed using dose optimization technique as appropriate and may include automated exposure control or mA/KV adjustment according to patient size. FINDINGS: Mild linear subsegmental atelectasis in both lung bases posteriorly. The liver demonstrates multiple cysts. Cholelithiasis. The spleen, right adrenal gland are normal. Th ere is mild edematous appearance to the pancreatic head and neck region. This may indicate pancreatit is. Full assessment is not possible due to lack of IV contrast material.Mild thickening of the left a drenal gland is seen, nonspecific. No urinary tract stone or obstructive uropathy. No bowel obstruction, free air, free fluid or abscess. Moderate stool is present in the colon. The ap pendix is normal. The osseous structures are within normal limits.Several bladder diverticula are present. Small fat co ntaining umbilical hernia. IMPRESSION: Subtle edema is seen in the region of the pancreatic head and neck which could indicate pancreatitis. Evaluation of the pancreatic parenchyma is limited due to lack of contrast material. Mejia ggest correlation with amylase and lipase levels. Cholelithiasis. Moderate fecal retention in the colon. A limited non-contrast examination was performed as detailed.
--- NOTE | 2019-04-23 17:38 | P.HP ---
Certification for Inpatient Patient admitted to: Inpatient With expected LOS: >2 Midnights Practitioner: I am a practitioner with admitting privileges, knowledge of patient current condition, hospital course, and medical plan of care. Services: Services provided to patient in accordance with Admission requirements found in Title 42 Section 412.3 of the Code of Federal Regulations Patient History Date of Service: 04/23/19 Reason for admission: Generalized weakness, anorexia History of Present Illness: This is a 69-year-old male with past medical history of hypertension, current smoker, heavy alcohol usage, PMR admitted for generalized weakness and anorexia. Per patient, he has chronic pain in his hips bilateral knee is shoulder etc but this pain got progressively worse starting about 3 weeks ago. He has been taking pain medications without pain relief. Then about 1 week ago , he is not really been eating as he does not have an appetite anymore. Since then, he has been getting generally weak. He also endorses dizziness. He also states that he has lost about 10 lb in the past 2 weeks. He denies any chest pain, shortness of breath, headache, new/acute vision changes, speech changes, focal weakness, nausea/vomiting, diarrhea/constipation or other complaints. Now, he can barely get out of bed or walk and therefore he was brought to the emergency room. In the ER, his initial blood pressure was 90/47, heart rate of 107, respirations of 18, afebrile at 98.8 with a pulse ox of 96% on room air. His BMI was 36.49. His labs were remarkable for WBC count of 14.7, neutrophil count elevated at 91.6, creatinine elevated at 1.32, lactic acid level elevated at 8.3, calcium level elevated at 11.4, total bili and direct bili elevated. Pro calcitonin was normal. Chest x-ray was done, showed left lung opacities that may represent pneumonia or mass. A CT chest was done, which showed bulky lymphadenopathy in the mediastinum and hilar regions. These are nonspecific findings but could be related to lymphoma, sarcoid of metastatic disease. A CT head showed a 6 x 3 cm left supraorbital mass extending into the left frontal scalp, possibly representing a mass, inflammation or muscle hypertrophy. In the ER, he received 3.5 L normal saline bolus, Rocephin, azithromycin. At the time of my exam, he was alert oriented x3, his blood pressure was low but stable and he was in mild to moderate distress due to pain in his hip and legs/knees. Of note, patient states that he is a little more than 1 pack per day smoker for the past 50 years and he was drinking a 6 pack of beer per day for about 40 years and quit 2 weeks ago. He denies any other drug usage. He lives at home with his . Allergies No Known Allergie Allergy (Uncoded 04/01/16 13:20) Unknown Home medications list reviewed: Yes Home Medications: Gabapentin 300 mg PO BEDTIME 01/19/19 Lisinopril 30 mg PO DAILY 01/19/19 predniSONE [Prednisone] 20 mg PO DAILY 01/19/19 - Past Medical/Surgical History Diabetic: No -: Hypertension -: PMR - Social History Smoking Status: Current every day smoker (PPD smoker x 50 years) Place of Residence: Home Review of Systems General: Weakness, Other (Anorexia), As per HPI Eyes: Other (Left eye smaller than right eye after temporal artery biopsy in January) ENT: Unremarkable Respiratory: Unremarkable Cardiovascular: Edema Gastrointestinal: Nausea Genitourinary: Unremarkable Musculoskeletal: Shoulder Pain, Back Pain, Other (Hip pain bilateral), As per HPI Neurological: Weakness, As per HPI Lymphatics: Unremarkable Physical Examination - Physical Exam General: Alert, Oriented x3, Moderate distress, Other (Looks older than stated age, ill appearing) HEENT: Other (Left eye <than right eye, chronic finding after temporal artery biopsy on left side.) Neck: Supple, 2+ carotid pulse no bruit, No LAD, Without JVD or thyroid abnormality Respiratory: Clear to auscultation bilaterally, Normal air movement Cardiovascular: Regular rate/rhythm, Normal S1 S2, Edema (2+ bilaterally) Gastrointestinal: Normal bowel sounds, No tenderness Musculoskeletal: Other (Right ankle/foot noted to be colder than left) Integumentary: Other (Chronic stasis skin changes bilateral lower extremities) Neurological: Normal speech, Normal strength at 5/5 x4 extr, Sensation intact, Normal reflexes 2+, Normal affect Lymphatics: No axilla or inguinal lymphadenopathy - Studies Laboratory Data (last 24 hrs) 04/23/19 13:20: PT 13.0 H, INR 1.11 04/23/19 13:20: WBC 14.7 H, Hgb 15.8, Hct 46.5, Plt Count 202 04/23/19 13:20: Sodium 141, Potassium 4.8, BUN 40 H, Creatinine 1.32 H, Glucose 80, Magnesium 2.2, Total Bilirubin 1.2 H, AST 46 H, ALT 18, Alkaline Phosphatase 91 Assessment and Plan - Problems (Diagnosis) (1) Dehydration Current Visit: Yes Status: Acute Plan: Likely secondary to decreased p.o. intake -will continue IV fluids, maintenance dose -monitor electrolytes/labs in the morning -continue to monitor vital signs (2) Acute kidney injury Current Visit: Yes Status: Acute Plan: Likely pre renal -continue IV fluids and monitor creatinine/kidney function -avoid nephrotoxic medication -nephrology consultation if no improvement in kidney function (3) Lactic acidosis Current Visit: Yes Status: Acute Plan: Likely secondary to dehydration See above for management (4) Hypercalcemia Current Visit: Yes Status: Acute Plan: Patient with hypercalcemia: -This is likely secondary to dehydration. Will continue IV fluids as noted above. -other differential in his case would be malignancy has CT scan with abnormalities, patient with risk factors of smoking as well as alcohol use. Will continue to monitor. (5) Decreased appetite Current Visit: Yes Status: Acute Plan: Could be secondary to underlying malignancy versus heavy alcohol usage versus cholelithiasis/pancreatitis -will hydrate patient (6) Abnormal CT scan, chest Current Visit: Yes Status: Acute Plan: Differential diagnosis here includes pneumonia versus underlying mass/ malignancy. -patient does have risk factors of smoking a pack per day for 50+ years along with heavy alcohol usage. -will get pulmonology consultation -abdominal/pelvic CT scan unfortunately was unable to be done with contrast. Non contrast study shows potential pancreatitis/cholelithiasis. Some liver cysts as well but does not show any significant mass. -may need repeat imaging the line to see changes in lymphadenopathy/nodules (7) Pancreatitis Current Visit: Yes Status: Suspected Plan: Suspected pancreatitis on CT- scan. -Lipase ordered, pending -will order lipid panel -will get ultrasound of the abdomen if needed -he does seem to have elevated total bili/thyroid bili, this could be secondary to dehydration versus cholestasis. Will continue to monitor Qualifiers: Chronicity: acute Pancreatitis type: unspecified pancreatitis type Acute pancreatitis complication: no infection or necrosis Qualified Code(s): K85.90 - Acute pancreatitis without necrosis or infection, unspecified (8) Cholelithiasis Current Visit: Yes Status: Acute Qualifiers: Cholecystitis presence: without cholecystitis (9) History of heavy alcohol consumption Current Visit: Yes Status: Chronic Plan: History of 1 6 pack per day for 40+ years, he quit alcohol 2 weeks ago. 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 May need biopsy down the line though stable at this time. (13) PMR (polymyalgia rheumatica) Current Visit: Yes Status: Chronic Plan: Will continue prednisone that patient takes at home -continue to monitor (14) Hypertension Current Visit: No Status: Chronic Plan: Hold blood pressure medications as patient's blood pressure low at this time. -Will restart home medications once tolerating Qualifiers: Hypertension type: essential hypertension Qualified Code(s): I10 - Essential (primary) hypertension (15) Hypotension Current Visit: Yes Status: Acute Plan: Likely secondary to decreased p.o. intake -continue IV fluids -hold blood pressure medications at this time Qualifiers: Hypotension type: other hypotension type Qualified Code(s): I95.89 - Other hypotension - Plan DVT prophylaxis: Lovenox GI prophylaxis: None Diet: Heart healthy Disposition: Admit to floor with tele. Pending symptomatic improvement Discharge Plan: Home Plan to discharge in: Greater than 2 days - Advance Directives Does patient have a Living Will: No Does patient have a Durable POA for Healthcare: No Time Spent Managing Pts Care (In Minutes): 65
[2019-04-23 18:54] LABS: Thyroid Stimulating Hormone 3.02 uIU/mL (0.360-3.740)
--- NOTE | 2019-04-23 18:56 | RAD REPORT ---
EXAM DESCRIPTION: US - Extremity Venous Uni Ltd - 04/23/2019 6:49 pm CLINICAL HISTORY: right leg pain Leg swelling and edema. COMPARISON: <Comparisons> FINDINGS: Right lower extremity venous system was interrogated with Doppler technique. Normal flow, compressibility and augmentation was noted. There is no DVT present. IMPRESSION: No evidence of right lower extremity deep venous thrombosis.
--- NOTE | 2019-04-23 19:01 | RAD REPORT ---
EXAM DESCRIPTION: US - Lower Extremity Artery Uni Ltd - 04/23/2019 6:49 pm CLINICAL HISTORY: possible arterial insufficency to R foot COMPARISON: <Comparisons> FINDINGS: Doppler interrogation of the right lower extremity arterial system was performed. Right common femoral artery, superficial femoral artery and popliteal artery are triphasic. Right pos terior tibial artery dorsalis pedis artery are biphasic to triphasic. No significant stenosis or occl usion. IMPRESSION: No significant right lower extremity peripheral vascular disease evident.
[2019-04-23] MEDS: HYDROCODONE/APAP 10/325 TAB PO PRN (22:14)
[2019-04-23 22:44] VITALS: BMI 35.4
[2019-04-23 23:05] LABS: Urine Appearance CLEAR; Urine Blood NEGATIVE (NEG); Urine Color DK YELLOW; Urine Glucose NEGATIVE (NEG); Urine Protein NEGATIVE (NEG); Urine Specific Gravity 1.025 (1.005-1.030); Urine pH 5.5 (5.0-7.0)
[2019-04-23 23:14] LABS: Urine Microscopic Reflex NO UMIC
[2019-04-23 23:22] LABS: Urine Bilirubin NEGATIVE (NEG)
[2019-04-24] MEDS: HYDROCODONE/APAP 10/325 TAB PO PRN ×2 (05:46→18:06)
[2019-04-24 06:52] LABS: Absolute Lymphocytes (CBC) 0.3 K/uL (0.7-4.9); Basophils % 0.1 % (0-1.3); Hematocrit 41.1 % (39.6-49.0); Lymphocytes % 2.5 % (15.3-44.8); MPV 8.8 fL (7.6-11.3); RBC Red Blood Cell Count 4.22 M/uL (4.33-5.43)
[2019-04-24 07:10] LABS: Bilirubin Total 0.9 mg/dL (0.2-1.0); Phosphorus 2.2 mg/dL (2.5-4.9); Protein, Total 5.3 g/dL (6.4-8.2)
[2019-04-24] MEDS: ENOXAPARIN 40 MG/0.4 ML SQ SCH (09:27)
[2019-04-24] MEDS ORDERED: POTASS/SODIUM PHOSPHATE 1 PKT POWD.PACK PO ONE (09:33)
[2019-04-24 09:57] LABS: Blood Morphology Comment NOT SEEN (NOT SEEN); Platelet Estimate ADEQ
--- NOTE | 2019-04-24 10:38 | P.CNS ---
Date of Consult: 04/24/19 Chief Complaint: Generalized weakness, anorexia History of Present Illness: Patient is 69 years of age a poor historian is a little confused as been feeling bad for the past 3 months recently diagnosed with temporal arteritis was seeing a neurologist and was treated with steroids admission was precipitated by feeling very weak unable to stand up patient has presumed COPD he is a heavy smoker CT scan shows hilar adenopathy with a pulmonary nodules suggestive of a malignancy is feeling weak lost weight on admission denies white count was elevated patient was hypercalcemic renal failure Allergies No Known Allergie Allergy (Uncoded 04/23/19 21:27) Unknown Home Medications: Gabapentin 300 mg PO TID 01/19/19 Lisinopril 30 mg PO DAILY 01/19/19 predniSONE [Prednisone] 20 mg PO BID 01/19/19 Cholecalciferol (Vitamin D3) [Vitamin D 1000 Iu Tab*] 2,000 unit PO DAILY Duloxetine HCl 30 mg PO DAILY 04/23/19 Meloxicam 1 tab PO DAILY 04/23/19 Tizanidine [Zanaflex*] 1 tab PO BEDTIME 04/23/19 - Past Medical/Surgical History Diabetic: No -: Hypertension -: neuropathy -: chronic back pain -: Temporal arteritis -: temporal left mass biopsy january 19, 2019 -: lower back nerves cauterized - Family History parents History Unknown: Yes Notes: none - Social History Smoking Status: Current every day smoker Alcohol use: No CD- Drugs: No Caffeine use: Yes Place of Residence: Home Review of Systems 10-point ROS is otherwise unremarkable General: Weakness Respiratory: Shortness of Breath Physical Examination Temp Pulse Resp BP Pulse Ox 97.8 F 99 H 20 114/60 95 04/24/19 00:00 04/24/19 00:00 04/24/19 00:00 04/24/19 02:51 04/24/19 00:00 General: Alert, In no apparent distress, Oriented x3 HEENT: Atraumatic Neck: Supple Respiratory: Expiratory wheezes Cardiovascular: No edema, Regular rate/rhythm, Normal S1 S2 Gastrointestinal: Normal bowel sounds, Soft and benign, Non-distended Musculoskeletal: No clubbing, No contractures Laboratory Data (last 24 hrs) 04/23/19 13:20: PT 13.0 H, INR 1.11 09/05/19 13:20: WBC 14.7 H, Hgb 15.8, Hct 46.5, Plt Count 202 04/23/19 13:20: Sodium 141, Potassium 4.8, BUN 40 H, Creatinine 1.32 H, Glucose 80, Magnesium 2.2, Total Bilirubin 1.2 H, AST 46 H, ALT 18, Alkaline Phosphatase 91, Lipase 458 H - Problems (1) Lung cancer Current Visit: Yes Status: Acute Plan: I strongly suspect that he has lung cancer with mediastinal adenopathy solitary pulmonary nodule in the left lung in addition to hypercalcemia probably a non- small cell cancer also lost some weight renal function has improved recent diagnosis of vasculitis and had a biopsy done in January of his left temporal artery has been on steroids since then blood cultures are pending still has slight hypercalcemia creatinine is now normal start patient on normal saline additional labs ordered patient's blood pressure is low currently no evidence of an infection Qualifiers: Laterality: unspecified laterality
[2019-04-24] MEDS: NA CHLORIDE 0.9% 1,000 ML IV SCH ×2 (11:29→21:56)
--- NOTE | 2019-04-24 12:09 | P.PN ---
Subjective Date of Service: 04/24/19 Chief Complaint: Generalized weakness, anorexia Subjective: No new changes Patient seen and examined at bedside. No family at bedside. Chart reviewed and case discussed with nursing staff. Patient continues remain weak, but alert oriented x3 in no acute distress this morning No acute events noted overnight Patient no new complaints this morning Review of Systems 10-point ROS is otherwise unremarkable Physical Examination - Vital Signs Temperature: 97.8 F Blood Pressure: 114/60 Pulse: 99 Respirations: 20 Pulse Ox (%): 95 - Physical Exam General: Alert, In no apparent distress, Oriented x3, Cachectic, Other (Looks older than stated age) HEENT: Atraumatic, PERRLA, Other (Left eye <than right eye, chronic finding after temporal artery biopsy on left side.), EOMI Neck: Supple, JVD not distended Respiratory: Dull, Expiratory wheezes Cardiovascular: Regular rate/rhythm, Normal S1 S2 Gastrointestinal: Normal bowel sounds, No tenderness Musculoskeletal: No tenderness Integumentary: No rashes, Other (Chronic stasis skin changes bilateral lower extremities) Neurological: Normal speech, Normal tone, Normal affect Lymphatics: No axilla or inguinal lymphadenopathy - Studies Laboratory Data (last 24 hrs) 04/23/19 13:20: PT 13.0 H, INR 1.11 04/23/19 13:20: WBC 14.7 H, Hgb 15.8, Hct 46.5, Plt Count 202 04/23/19 13:20: Sodium 141, Potassium 4.8, BUN 40 H, Creatinine 1.32 H, Glucose 80, Magnesium 2.2, Total Bilirubin 1.2 H, AST 46 H, ALT 18, Alkaline Phosphatase 91, Lipase 458 H Assessment And Plan - Current Problems (Diagnosis) (1) Dehydration Current Visit: Yes Status: Acute Plan: Likely secondary to decreased p.o. intake; improving -will continue IV fluids, maintenance dose -continue to monitor vital signs (2) Lactic acidosis Current Visit: Yes Status: Acute Plan: Likely secondary to dehydration - improving See above for management (3) Hypercalcemia Current Visit: Yes Status: Acute Plan: Patient with hypercalcemia: Improved with hydration, though continues to be elevated. -This could be likely due to a malignancy of the lung. patient with risk factors of smoking as well as alcohol use. -will discuss case with pulmonology (4) Decreased appetite Current Visit: Yes Status: Acute Plan: Could be secondary to underlying malignancy versus heavy alcohol usage versus cholelithiasis/pancreatitis -will continue to hydrate patient -seems to be tolerating more p.o. this more (5) Abnormal CT scan, chest Current Visit: Yes Status: Acute Plan: Differential diagnosis here includes pneumonia versus underlying mass/ malignancy. Suspecting primary lung malignancy at this time -patient does have risk factors of smoking a pack per day for 50+ years along with heavy alcohol usage. -pulmonology consulted, recommendations appreciated. -abdominal/pelvic CT scan unfortunately was unable to be done with contrast. Non contrast study shows potential pancreatitis/cholelithiasis. Some liver cysts as well but does not show any significant mass. -may need repeat imaging the line to see changes in lymphadenopathy/nodules (6) Pancreatitis Current Visit: Yes Status: Resolved Plan: Suspected pancreatitis on CT- scan. -Lipase elevated, the patient not complaining of abdominal pain really. -LFTs/alk-phos now in normal range Qualifiers: Chronicity: acute Pancreatitis type: unspecified pancreatitis type Acute pancreatitis complication: no infection or necrosis Qualified Code(s): K85.90 - Acute pancreatitis without necrosis or infection, unspecified (7) Cholelithiasis Current Visit: Yes Status: Resolved Qualifiers: Cholecystitis presence: without cholecystitis (8) History of heavy alcohol consumption Current Visit: Yes Status: Chronic Plan: History of 1 6 pack per day for 40+ years, he quit alcohol 2 weeks ago. 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 May need biopsy down the line though stable at this time. (12) PMR (polymyalgia rheumatica) Current Visit: Yes Status: Chronic Plan: Will continue prednisone that patient takes at home -continue to monitor (13) Hypertension Current Visit: No Status: Chronic Plan: Hold blood pressure medications as patient's blood pressure low at this time. -Will restart home medications once tolerating Qualifiers: Hypertension type: essential hypertension Qualified Code(s): I10 - Essential (primary) hypertension (14) Hypotension Current Visit: Yes Status: Resolved Plan: Likely secondary to decreased p.o. intake - resolved -continue IV fluids -hold blood pressure medications at this time Qualifiers: Hypotension type: other hypotension type Qualified Code(s): I95.89 - Other hypotension (15) Acute kidney injury Current Visit: Yes Status: Resolved Plan: Likely pre renal - resolved -continue IV fluids and monitor creatinine/kidney function -avoid nephrotoxic medication -nephrology consultation if no improvement in kidney function - Plan DVT prophylaxis: Lovenox GI prophylaxis: None Diet: Heart healthy Disposition: Pending symptomatic improvement. He will likely need outpatient follow up with Oncology for further evaluation/management upon discharge. He may need social worker masters consultation for placement/discharge as well.
[2019-04-24] MEDS: ALBUTEROL 2.5 MG/3 ML NEB SOL IH SCH ×2 (13:24→20:20)
[2019-04-24] MEDS ORDERED: LORazepam 2 MG/ML VIAL IV PRN (14:18)
--- NOTE | 2019-04-24 18:31 | RAD REPORT ---
EXAM DESCRIPTION: USExtlewis Venous Uni Ltd04/24/2019 5:52 pm CLINICAL HISTORY: left leg swelling. COMPARISON: None. FINDINGS: Left common femoral, superficial femoral, popliteal and posterior tibial veins are compre ssible and demonstrate augmentation. Doppler demonstrates good flow. IMPRESSION: No evidence of deep venous thrombosis involving the left lower extremity.
[2019-04-24] MEDS: predniSONE 20 MG TAB PO SCH (21:56)
[2019-04-25] MEDS: ALBUTEROL 2.5 MG/3 ML NEB SOL IH SCH ×4 (02:20→20:15)
[2019-04-25 05:03] LABS: Absolute Lymphocytes (CBC) 0.2 K/uL (0.7-4.9); Basophils % 0.8 % (0-1.3); Hematocrit 43.4 % (39.6-49.0); Lymphocytes % 1.3 % (15.3-44.8); RBC Red Blood Cell Count 4.34 M/uL (4.33-5.43)
[2019-04-25 05:27] LABS: Bilirubin Total 0.7 mg/dL (0.2-1.0); Potassium 4.3 mmol/L (3.5-5.1); Protein, Total 5.6 g/dL (6.4-8.2)
[2019-04-25] MEDS: NA CHLORIDE 0.9% 1,000 ML IV SCH ×3 (06:32→18:13)
[2019-04-25] MEDS: HYDROCODONE/APAP 10/325 TAB PO PRN ×2 (08:26→14:59)
[2019-04-25] MEDS: ENOXAPARIN 40 MG/0.4 ML SQ SCH (08:26)
[2019-04-25] MEDS: predniSONE 20 MG TAB PO SCH ×2 (08:26→20:21)
--- NOTE | 2019-04-25 11:44 | P.PN ---
Subjective Date of Service: 04/25/19 Chief Complaint: Hypercalcemia possible lung cancer Patient is slightly better still feels very weak physical therapy at the bedside in no respiratory distress Review of Systems General: Weakness Respiratory: Shortness of Breath Physical Examination - Vital Signs Temperature: 97.9 F Blood Pressure: 122/65 Pulse: 113 Respirations: 22 Pulse Ox (%): 99 - Physical Exam General: Alert, Oriented x3, Mild distress Respiratory: Clear to auscultation bilaterally Cardiovascular: Edema Assessment & Plan - Problems (Diagnosis) (1) Lung cancer Current Visit: Yes Status: Acute Plan: Serum calcium is stable continue with IV fluids PTH is low serum ionized calcium is pending vital signs are stable no evidence of infection white count is declining he will need an outpatient workup Qualifiers: Laterality: unspecified laterality
[2019-04-25] MEDS: GABAPENTIN 300 MG CAP PO SCH ×2 (13:26→20:21)
[2019-04-25] MEDS: TIZANIDINE 4 MG TABLET PO SCH (20:20)
[2019-04-26] MEDS: ALBUTEROL 2.5 MG/3 ML NEB SOL IH SCH ×4 (02:05→20:35)
[2019-04-26] MEDS: NA CHLORIDE 0.9% 1,000 ML IV SCH ×2 (04:09→15:07)
[2019-04-26 06:15] LABS: Absolute Lymphocytes (CBC) 0.3 K/uL (0.7-4.9); Basophils % 0.4 % (0-1.3); Hematocrit 35.3 % (39.6-49.0); Lymphocytes % 2.6 % (15.3-44.8); MPV 8.6 fL (7.6-11.3); RBC Red Blood Cell Count 3.65 M/uL (4.33-5.43)
[2019-04-26 06:31] LABS: ALT/SGPT 19 U/L (12-78); AST/SGOT 37 U/L (15-37); Albumin 1.9 g/dL (3.4-5.0); Alkaline Phosphatase 77 U/L (45-117); BUN Blood Urea Nitrogen 28 mg/dL (7-18); Bicarbonate 20 mmol/L (21-32); Bilirubin Total 0.6 mg/dL (0.2-1.0); Glucose Level 99 mg/dL (74-106); Lipase 100 U/L (73-393); Phosphorus 2.1 mg/dL (2.5-4.9); Potassium 4.4 mmol/L (3.5-5.1); Protein, Total 5.1 g/dL (6.4-8.2); Sodium Level 145 mmol/L (136-145)
[2019-04-26] MEDS: GABAPENTIN 300 MG CAP PO SCH ×3 (08:32→22:05)
[2019-04-26] MEDS: VITAMIN D 1000 UNIT TAB PO SCH (08:32)
[2019-04-26] MEDS: POTASS/SODIUM PHOSPHATE 1 PKT POWD.PACK PO SCH ×3 (08:32→10:55)
[2019-04-26] MEDS: predniSONE 20 MG TAB PO SCH ×2 (08:33→22:05)
[2019-04-26] MEDS: DULOXETINE 30 MG CAP PO SCH (08:34)
[2019-04-26] MEDS: ENOXAPARIN 40 MG/0.4 ML SQ SCH (08:35)
[2019-04-26] MEDS: HYDROCODONE/APAP 10/325 TAB PO PRN (08:47)
[2019-04-26] MEDS ORDERED: LISINOPRIL 20 MG TAB PO SCH (09:00)
--- NOTE | 2019-04-26 21:55 | RAD REPORT ---
EXAM DESCRIPTION: US - UPPER EXTREMITY VENOUS UNILATE - 04/26/2019 9:16 pm CLINICAL HISTORY: r/o dvt Arm pain and swelling COMPARISON: Abdomen Pelvis Wo Contrast dated 04/23/2019; Thorax Wo Con dated 04/23/2019 FINDINGS: Left upper extremity venous system was interrogated with Doppler technique. Normal flow, c ompressibility and augmentation was noted. There is no DVT present. IMPRESSION: No evidence of left upper extremity deep venous thrombosis.
[2019-04-26] MEDS: NACHLORIDE 0.45% 1,000 ML IV SCH (22:04)
[2019-04-26] MEDS: TIZANIDINE 4 MG TABLET PO SCH (22:05)
[2019-04-27] MEDS ORDERED: NA CHLORIDE 0.9% 250 ML ONE ×2 (00:21→06:26)
--- NOTE | 2019-04-27 00:25 | P.PN ---
Subjective Date of Service: 04/27/19 Primary Care Provider: Unknown Chief Complaint: Hypercalcemia possible lung cancer Subjective: Other (Patient to have CT-guided lung biopsy tomorrow. Patient has been doing well. Patient desires to go home at discharge.) Physical Examination - Vital Signs Temperature: 98.8 F Blood Pressure: 115/55 Pulse: 84 Respirations: 16 Pulse Ox (%): 91 - Physical Exam General: Alert, In no apparent distress, Oriented x3, Cooperative HEENT: Atraumatic Neck: Supple Respiratory: Expiratory wheezes, Inspiratory wheezes Cardiovascular: Normal pulses, Regular rate/rhythm Gastrointestinal: Normal bowel sounds, Soft and benign, Non-distended Musculoskeletal: No erythema, No tenderness, No warmth Neurological: Normal speech, Normal strength at 5/5 x4 extr, Normal tone, Normal affect - Studies Medications List Reviewed: Yes Assessment & Plan Discharge Plan: Home Plan to discharge in: 48 Hours Physician Review Additional Text: Impression: Lactic acidosis likely related to dehydration with noted acute renal injury Hypercalcemia with abnormal CT scan showing bulky lymphadenopathy in the mediastinum and hilar region suspect primary lung malignancy Hypertension COPD Tobacco/alcohol abuse Polymyalgia rheumatica on chronic steroids History of temporal arteritis on chronic steroids Plan: Lactic acidosis likely related to dehydration with noted acute renal injury: This has improved. Renal function back to baseline pre Continue with IV fluid hydration. Encourage oral intake. Obtain you with physical therapy. Patient to have CT-guided lung biopsy tomorrow. Likely discharge in the next 48 hr with clinical improvement after CT-guided biopsy. Patient desires to go home at discharge. Patient will likely require home health and physical therapy. Will have oncology social work provide this at discharge. Will turn the service over to hospitalist team. Continue to further address his condition. Hypercalcemia with abnormal CT scan showing bulky lymphadenopathy in the mediastinum and hilar region suspect primary lung malignancy: Patient to have CT-guided lung biopsy tomorrow. Patient seen in evaluated by pulmonology. Will monitor chest x-ray after lung biopsy. Likely home in the next 48 hr with clinical improvement after biopsy. Hypertension: Continue with medication. Hold medication if blood pressure systolic less than 120 COPD: Continue with COPD medication. Patient will require medication at discharge. Tobacco/alcohol abuse: Continued tobacco and alcohol education. Polymyalgia rheumatica on chronic steroids: Continue with medication including steroids and pain medication. History of temporal arteritis on chronic steroids: Continue the medication including steroids. Time Spent Managing Pts Care (In Minutes): 55
[2019-04-27] MEDS ORDERED: NA CHLORIDE 0.9% 250 ML IV ONE ×2 (00:30→06:33)
[2019-04-27] MEDS: ALBUTEROL 2.5 MG/3 ML NEB SOL IH SCH ×4 (02:20→20:00)
[2019-04-27 05:51] LABS: Absolute Lymphocytes (CBC) 0.3 K/uL (0.7-4.9); Basophils % 0.5 % (0-1.3); Hematocrit 35.1 % (39.6-49.0); Lymphocytes % 3.1 % (15.3-44.8); MPV 9.1 fL (7.6-11.3); RBC Red Blood Cell Count 3.63 M/uL (4.33-5.43)
[2019-04-27 05:55] LABS: BUN Blood Urea Nitrogen 22 mg/dL (7-18); Bicarbonate 20 mmol/L (21-32); Glucose Level 91 mg/dL (74-106); Magnesium 1.5 mg/dL (1.8-2.4); Potassium 3.9 mmol/L (3.5-5.1); Sodium Level 145 mmol/L (136-145)
[2019-04-27] MEDS: NACHLORIDE 0.45% 1,000 ML IV SCH ×2 (06:32→17:46)
--- NOTE | 2019-04-27 07:30 | PN ---
Subjective: Currently, patient is sitting in bed. He is eating lunch. He continues to have mild ba ck pain. He has no chest pain or shortness of breath. His left shoulder hurting some. His girlfrie nd at the bed side. Objective: Vital Signs: Blood pressure 122/65, respiratory rate 22, pulse 113, temperature 97.9. General: Patient is alert, slow. Does not look in any distress. HEENT: Atraumatic, normocephalic. PERRLA. Dry. He does have a large left temporal area mass. Neck: Supple. No JVD. No bruits. Chest: Clear to auscultation. Good air entry with expiratory wheezing. Heart: Regular rate and rhythm. S1, S2 normal. No gallop or murmur. Abdomen: Soft. No masses. No hepatosplenomegaly. Positive bowel sounds. Extremities: No clubbing, cyanosis, or edema except chronic stasis dermatitis. Neurological: Deferred. Laboratory Data: Today white blood cells 13.8, hemoglobin 13.9, platelets normal. Chemistry within normal. Calcium 10.5, BUN 33, creatinine 0.88. Lactic acid yesterday 6.4. Parathyroid was 6.3. Assessment And Plan: 1.Dehydration, looks better. continue to go down. Continue IV hydration. 2.Lactic acidosis secondary to dehydration. We will check in the morning. 3.Hypercalcemia, borderline. Not high enough to consider Zometa. We will continue hydration. Para thyroid hormone low, most likely secondary to malignancy maybe. 4.Poor appetite due to history of alcohol abuse patient eating his lunch now. 5.Mass on CT with adenopathy highly concerning for lung malignancy. We will need bronchoscopy with biopsy or CT-guided biopsy. Neither can be done on the weekend, either can be arranged as outpatient or can be arranged on Saturday. 6.? Pancreatitis, CAT scan, but LFTs and lipase within normal. We will observe. 7.Cholelithiasis, on CAT scan. Incidental finding will observe. 8.History of alcohol consumption. day for 40 years. He stated that he quit 2 weeks ago. We will observe for now. 9.Nicotine dependence with history of smoking. Advised to quit given now questionable mass in the l rose. 10.Peripheral vascular disease. The left lower extremity Doppler was negative for deep vein thrombo sis. 11. on the biopsy done by Dr. Juan a month ago. The patient is receiving cortisone as ou tpatient. 12.History of polymyalgia rheumatica. Continue steroid at 20 mg twice a day. 13.Deep vein thrombosis prophylaxis with Lovenox. 14.Check ammonia level, given history of alcohol abuse. 15.Hypertension, controlled. 16.Obtain physical therapy to evaluate discharge planning. KYLEE/DEANNE Voice ID: [id number] Report ID: [id number]
--- NOTE | 2019-04-27 07:30 | PN ---
Subjective: Patient is currently in bed. He continued to be slow, fatigued. He cannot recall his _ . His left upper extremity continues to swell further. He denies any chest pain or abdomin al pain. He had a bowel movement yesterday. His appetite is poor. Review of Systems: Otherwise negative. Objective: Vital Signs: Blood pressure is 109/53, respiratory rate 20, pulse 89, temperature 98.9. General: Patient is alert, oriented x3. But again he is very slow to respond to questions. HEENT: Atraumatic, normocephalic. PERRLA. Oral mucosa is moist. Left forehead mass palpable. Neck: Supple. No JVD. No bruits. Chest: Clear to auscultation. Good air entry with expiratory wheezing. Heart: Regular rate and rhythm. S1, S2 normal. No gallop. Abdomen: Soft, nontender. No masses. No hepatosplenomegaly. Positive bowel sounds. Extremities: No clubbing with stasis dermatitis both legs. No edema. Neurologic: Grossly intact. Laboratory Data: Today showed CBC within normal except for hemoglobin 12.3, platelet of 140. Chemis try within normal except for lactic acid elevated at 7.1, calcium 10.5, phosphorus 2.1. Assessment And Plan: 1.Dehydration was resolved. Renal insufficiency resolved. Patient's kidney function is back to nor mal. 2.Lactic acidosis still there with elevated level. Though, patient is not anymore dehydrated. No e vidence of active infection. We will continue to follow closely. Patient's blood culture was negati ve on the so far. 3.Hypercalcemia, borderline, could be related to malignancy with a mass on the CT of the chest. No intervention required beside hydration given level is not very high. 4.Abnormal CT of the chest. Very worrisome for malignancy with adenopathy. Patient need CT-guided biopsy versus bronchoscopy and biopsy. We can order that tomorrow morning through IR. I feel procee ding with workup as outpatient will be too complex for the patient to and I think patient anyway may need placement upon discharge. 5.Questionable pancreatitis, on CT scan. No evidence of . Patient does not have any abdo felipe pain at this point, his LFTs normal. 6.Cholelithiasis, incidental finding on CT. 7.History of heavy alcohol abuse. He did not drink in 2 weeks now. Advised to quit immediately. 8.Tobacco abuse. Advised to quit as well. Patient had a lung mass and could be lung cancer. 9.Hypertension history, well controlled on lisinopril. 10.Supraorbital mass. 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 He is on steroid. Continue prednisone 20 mg twice a day. 11.History of peripheral vascular disease with left lower extremity swelling today. I will proceed with a Doppler to rule out DVT. 12.Acute renal failure, resolved, secondary to dehydration with fluid. 13.Deep venous thrombosis prophylaxis, on Lovenox. 14.Social Work consult for placement as well as patient may need home health at home versus placemen t at assisted living given his lack of 11/03 caregiver at his own house. KYLEE/DEANNE Voice ID: [id number] Report ID: [id number]
[2019-04-27] MEDS: ARFORMOTEROL TARTRATE 15 MCG/2 ML VIAL.NEB NEB SCH ×2 (07:50→20:00)
[2019-04-27] MEDS ORDERED: Magnesium Sulfate 2gm IVPB 2 G/50 ML BAG IV ONE (08:00)
[2019-04-27] MEDS: LISINOPRIL 20 MG TAB PO SCH (09:00)
[2019-04-27] MEDS ORDERED: POTASSIUM PHOS IN 0.9 % NACL 15 MMOL/250 ML BAG IV ONE (09:00)
[2019-04-27] MEDS: DULOXETINE 30 MG CAP PO SCH (09:18)
[2019-04-27] MEDS: VITAMIN D 1000 UNIT TAB PO SCH (09:18)
[2019-04-27] MEDS: ENOXAPARIN 40 MG/0.4 ML SQ SCH (09:18)
[2019-04-27] MEDS: GABAPENTIN 300 MG CAP PO SCH ×3 (09:18→23:15)
[2019-04-27] MEDS: predniSONE 20 MG TAB PO SCH ×2 (09:18→23:15)
--- NOTE | 2019-04-27 14:52 | RAD REPORT ---
EXAM DESCRIPTION: RAD - Shoulder Left 2 View - 04/27/2019 2:45 pm CLINICAL HISTORY: Pain with decreased ROM. Possible dislocation COMPARISON: Shoulder Left 2 View dated 04/01/2019 FINDINGS: Degenerative changes are present involving the AC joint. The bones are osteopenic. No acut e fracture or dislocation is evident. There is a subtle developing infiltrate in the left mid lung varma spected.
[2019-04-27] MEDS: Levofloxacin 750mg IV 750 MG/150 ML BAG IV SCH (17:46)
[2019-04-27] MEDS ORDERED: MAGNESIUM SULFATE 1 gm IVPB 1 GM/100 ML BAG IV ONE (21:16)
[2019-04-27] MEDS: TIZANIDINE 4 MG TABLET PO SCH (23:15)
[2019-04-28] MEDS: ALBUTEROL 2.5 MG/3 ML NEB SOL IH SCH ×4 (02:00→20:45)
[2019-04-28] MEDS: NACHLORIDE 0.45% 1,000 ML IV SCH ×4 (06:00→22:00)
[2019-04-28 06:20] LABS: Absolute Lymphocytes (CBC) 0.3 K/uL (0.7-4.9); Hematocrit 38.7 % (39.6-49.0); Lymphocytes % 2.5 % (15.3-44.8); MPV 9.1 fL (7.6-11.3); RBC Red Blood Cell Count 3.98 M/uL (4.33-5.43)
[2019-04-28] MEDS: ARFORMOTEROL TARTRATE 15 MCG/2 ML VIAL.NEB NEB SCH ×2 (08:00→20:45)
--- NOTE | 2019-04-28 08:15 | P.PN ---
Date of Service: 04/28/19 Patient's chart has been reviewed. Patient's lactic acid has remained elevated. exact etiology has not been identified. Patient has had poor nutrition for quite a while. And cancer itself is an increased glycolitic state. Thiamine deficiency also results in lactic acidosis through an increase in pyruvate concentration. We will check thiamine levels. Monitor lactate level. As long as patient's pH does not decrease no need for a bicarb drip at this time. Once thiamine level is checked may also supplement with thiamine as well. Also PTH-rp is pending.
[2019-04-28 08:35] LABS: Blood Morphology Comment NOT SEEN (NOT SEEN); Platelet Estimate ADEQ
[2019-04-28 09:59] LABS: ALT/SGPT 27 U/L (12-78); AST/SGOT 57 U/L (15-37); Albumin 1.8 g/dL (3.4-5.0); Alkaline Phosphatase 96 U/L (45-117); BUN Blood Urea Nitrogen 19 mg/dL (7-18); Bicarbonate 18 mmol/L (21-32); Bilirubin Total 0.7 mg/dL (0.2-1.0); Folic Acid, (Folate) 2.6 ng/mL (3.1-17.5); Glucose Level 78 mg/dL (74-106); Lipase 775 U/L (73-393); Magnesium 1.8 mg/dL (1.8-2.4); Phosphorus 1.8 mg/dL (2.5-4.9); Sodium Level 142 mmol/L (136-145)
[2019-04-28] MEDS: predniSONE 20 MG TAB PO SCH ×2 (10:35→21:14)
[2019-04-28] MEDS: GABAPENTIN 300 MG CAP PO SCH ×3 (10:35→21:14)
[2019-04-28] MEDS: LISINOPRIL 20 MG TAB PO SCH (10:35)
[2019-04-28] MEDS: DULOXETINE 30 MG CAP PO SCH (10:35)
[2019-04-28] MEDS: VITAMIN D 1000 UNIT TAB PO SCH (10:36)
[2019-04-28] MEDS: ENOXAPARIN 40 MG/0.4 ML SQ SCH (10:36)
[2019-04-28 11:38] LABS: Arterial Blood Carboxyhemoglob 1.3 % (0-1.5); Blood Gas Oxyhemoglobin 91.1 % (94-97)
[2019-04-28 13:15] LABS: Absolute Lymphocytes (CBC) 0.3 K/uL (0.7-4.9); Basophils % 1.2 % (0-1.3); Hematocrit 41.5 % (39.6-49.0); Lymphocytes % 1.8 % (15.3-44.8); MPV 9.7 fL (7.6-11.3); RBC Red Blood Cell Count 4.28 M/uL (4.33-5.43)
[2019-04-28 13:29] LABS: ALT/SGPT 31 U/L (12-78); AST/SGOT 65 U/L (15-37); Albumin 1.9 g/dL (3.4-5.0); Alkaline Phosphatase 96 U/L (45-117); BUN Blood Urea Nitrogen 21 mg/dL (7-18); Bicarbonate 16 mmol/L (21-32); Bilirubin Total 0.8 mg/dL (0.2-1.0); Glucose Level 73 mg/dL (74-106); Potassium 4.3 mmol/L (3.5-5.1); Protein, Total 5.3 g/dL (6.4-8.2); Sodium Level 143 mmol/L (136-145)
--- NOTE | 2019-04-28 14:28 | RAD REPORT ---
EXAM DESCRIPTION: RAD - Chest Single View - 04/28/2019 2:09 pm CLINICAL HISTORY: Shortness of breath COMPARISON: April 23 TECHNIQUE: AP portable chest image was obtained 1406 hours . FINDINGS: Interstitial and patchy alveolar opacities have developed in the right lung field. Patchy opacification in the mid left lung field remains. Trachea is midline. Heart size is upper normal and stable. No significant vascular engorgement findings. No measurable pleural effusion and no pneumotho rax. No acute bony abnormality seen. No acute aortic findings suspected. IMPRESSION: Suspected left lung field pneumonia on the April 23 study has not changed significant ly. New interstitial and patchy alveolar opacities are present in the right lung field. This could be an asymmetric failure or volume overload pattern as well as diffuse infiltrate.
[2019-04-28 15:13] LABS: Vitamin D 1,25-Dihydroxy Total 82 pg/mL (18-72); Vitamin D,1,25-OH2, D2 <8 pg/mL
--- NOTE | 2019-04-28 16:29 | P.PN ---
Subjective Date of Service: 04/28/19 Primary Care Provider: Unknown Chief Complaint: Hypercalcemia possible lung cancer Pt seen and examined at bedside this AM. Chart Reviewed. Case Dw with Pulmonology and at bedside. This AM pt appears to be lethargic and Increase work of breathing. Repositioned in bed and elevated the HOB. Feeling much better. Vitals stable and Saturating 95% on 3L NC Review of Systems 10-point ROS is otherwise unremarkable Physical Examination - Vital Signs Temperature: 97.8 F Blood Pressure: 119/58 Pulse: 104 Respirations: 18 Pulse Ox (%): 94 - Physical Exam General: In no apparent distress, Mild distress HEENT: Atraumatic, PERRLA, EOMI Neck: Supple, JVD not distended Respiratory: Normal air movement, Expiratory wheezes, Inspiratory wheezes Cardiovascular: Regular rate/rhythm, Normal S1 S2 Gastrointestinal: Normal bowel sounds, No tenderness Musculoskeletal: No tenderness Integumentary: No rashes Neurological: Normal speech, Normal tone, Normal affect Lymphatics: No axilla or inguinal lymphadenopathy - Studies Microbiology Data (last 24 hrs): 04/23/19 14:47 Blood - Blood Aerobic Blood Culture - Final No growth in 5 days. 04/23/19 14:47 Blood - Blood Anaerobic Blood Culture - Final No growth in 5 days. 04/23/19 14:19 Blood - Blood Aerobic Blood Culture - Final No growth in 5 days. 04/23/19 14:19 Blood - Blood Anaerobic Blood Culture - Final No growth in 5 days. Medications List Reviewed: Yes Assessment And Plan - Current Problems (Diagnosis) (1) Lactic acidosis Current Visit: Yes Status: Acute Plan: Pt with Elevated LA and Now elevated WBC -most likely 2.2 to CA however r/o Sepsis -On IV levaquin for now -Blood, urine and Sputum culture pending -Xray with No improvement -Will get Chest CT -Will monitor closely (2) Lung cancer Current Visit: Yes Status: Acute Plan: CT scan with Finding concerning for Lung CA -elevated Ca with Recent weight loss and h/o Smoking making NSC LC high On deff -Pulmonology Consulted. Apprecated Reccs -Radiology unable to perform CT guided LN biopsy due to the location of the mass -Will discuss with Pulmonology regarding further steps as pt is still having Respiratory distress Qualifiers: Laterality: unspecified laterality Lung location: unspecified part of lung Qualified Code(s): C34.90 - Malignant neoplasm of unspecified part of unspecified bronchus or lung (3) History of heavy alcohol consumption Current Visit: Yes Status: Chronic (4) Nicotine dependence Current Visit: Yes Status: Chronic Qualifiers: Nicotine product type: cigarettes Substance use status: uncomplicated Qualified Code(s): F17.210 - Nicotine dependence, cigarettes, uncomplicated (5) PMR (polymyalgia rheumatica) Current Visit: Yes Status: Chronic (6) Peripheral arterial disease Current Visit: Yes Status: Ruled-out (7) Hypertension Current Visit: No Status: Chronic Qualifiers: Hypertension type: essential hypertension Qualified Code(s): I10 - Essential (primary) hypertension Discharge Plan: Home Plan to discharge in: Greater than 2 days - Code Status/Comfort Care Code Status Assessed: Yes Critical Care: No
[2019-04-28 17:29] LABS: Urine Appearance CLEAR; Urine Blood 3+ (NEG); Urine Color DK YELLOW; Urine Glucose NEGATIVE (NEG); Urine Protein 1+ (NEG); Urine Specific Gravity 1.025 (1.005-1.030); Urine pH 5.5 (5.0-7.0)
[2019-04-28 17:39] LABS: Urine Microscopic Reflex ORDER UMIC
[2019-04-28] MEDS: Levofloxacin 750mg IV 750 MG/150 ML BAG IV SCH (17:39)
--- NOTE | 2019-04-28 17:50 | RAD REPORT ---
EXAM DESCRIPTION: CT - Thorax Wo Con - 04/28/2019 5:28 pm CLINICAL HISTORY: cough COMPARISON: April 23, 2019 CT TECHNIQUE: Computed axial tomography of the chest was obtained. Contrast was not requested. All CT scans are performed using dose optimization technique as appropriate and may include automated exposure control or mA/KV adjustment according to patient size. FINDINGS: The evaluation of mediastinum, marin and vessels is limited secondary to lack of IV contras t administration. Development of moderate right and [id number] left ground-glass opacities Mediastinal and hilar lymphadenopathy are unchanged Small bilateral pleural effusions IMPRESSION: Moderate right and [id number] left ground-glass opacities may indicate pneumonia o r pneumonitis Stable mediastinal and hilar lymphadenopathy
[2019-04-28 18:13] LABS: Urine Bilirubin NEGATIVE (NEG)
[2019-04-28 18:18] LABS: Urine Bacteria <20 /HPF (NONE SEEN); Urine Culture Reflex Order REFLEXED; Urine Mucus LIGHT /HPF (NONE SEEN); Urine RBC >50 /HPF (NONE SEEN); Urine Yeast PRESENT (NONE SEEN)
[2019-04-28] MEDS: TIZANIDINE 4 MG TABLET PO SCH (21:14)
[2019-04-29] MEDS: ALBUTEROL 2.5 MG/3 ML NEB SOL IH SCH ×4 (01:30→19:45)
[2019-04-29 05:42] LABS: Absolute Lymphocytes (CBC) 0.2 K/uL (0.7-4.9); Basophils % 0.4 % (0-1.3); Hematocrit 37.5 % (39.6-49.0); Lymphocytes % 1.8 % (15.3-44.8); MPV 9.3 fL (7.6-11.3); RBC Red Blood Cell Count 3.85 M/uL (4.33-5.43)
[2019-04-29 06:10] LABS: ALT/SGPT 27 U/L (12-78); AST/SGOT 43 U/L (15-37); Albumin 1.8 g/dL (3.4-5.0); Alkaline Phosphatase 88 U/L (45-117); BUN Blood Urea Nitrogen 24 mg/dL (7-18); Bicarbonate 17 mmol/L (21-32); Bilirubin Total 0.7 mg/dL (0.2-1.0); Glucose Level 90 mg/dL (74-106); Potassium 4.3 mmol/L (3.5-5.1); Sodium Level 143 mmol/L (136-145)
[2019-04-29] MEDS: ARFORMOTEROL TARTRATE 15 MCG/2 ML VIAL.NEB NEB SCH ×2 (06:55→19:45)
[2019-04-29] MEDS: NACHLORIDE 0.45% 1,000 ML IV SCH ×3 (08:17→18:00)
[2019-04-29] MEDS: ENOXAPARIN 40 MG/0.4 ML SQ SCH (08:18)
[2019-04-29] MEDS: GABAPENTIN 300 MG CAP PO SCH ×3 (08:18→20:34)
[2019-04-29] MEDS: VITAMIN D 1000 UNIT TAB PO SCH (08:18)
[2019-04-29] MEDS: POTASS/SODIUM PHOSPHATE 1 PKT POWD.PACK PO SCH ×3 (08:18→11:00)
[2019-04-29] MEDS: DULOXETINE 30 MG CAP PO SCH (08:18)
[2019-04-29] MEDS: predniSONE 20 MG TAB PO SCH ×2 (08:19→20:34)
[2019-04-29] MEDS: LISINOPRIL 20 MG TAB PO SCH (08:24)
[2019-04-29] MEDS ORDERED: MAGNESIUM SULFATE 1 gm IVPB 1 GM/100 ML BAG IV ONE (09:00)
[2019-04-29] MEDS: Levofloxacin 750mg IV 750 MG/150 ML BAG IV SCH (17:27)
--- NOTE | 2019-04-29 17:41 | P.PN ---
Subjective Date of Service: 04/29/19 Primary Care Provider: Unknown Chief Complaint: Hypercalcemia possible lung cancer Patient is awake and communicating meaningfully. He is oriented x3. He reports shortness of breath. He is maintained on 3 L of oxygen by nasal cannula with SaO2 around 90-92%. No major changes from yesterday. No fever. Review of Systems 10-point ROS is otherwise unremarkable Physical Examination - Vital Signs Temperature: 97.1 F Blood Pressure: 107/55 Pulse: 94 Respirations: 18 Pulse Ox (%): 94 - Physical Exam General: Oriented x3, Mild distress HEENT: Normocephalic, Mucous membr. moist/pink Neck: Supple, JVD not distended Respiratory: Diminished Cardiovascular: Normal S1 S2, Other (Tachycardic), Edema (1+ bilateral lower extremity pitting edema.) Capillary refill: <2 Seconds Gastrointestinal: Normal bowel sounds, Soft and benign Musculoskeletal: No clubbing Integumentary: Other (Bilateral lower extremity venous stasis dermatitis) Neurological: Other (Globally weak.) Urinary: Romero catheter - Studies Laboratory Last Values WBC 11.4 K/uL (4.3-10.9) H D 04/29/19 05:19 RBC 3.85 M/uL (4.33-5.43) L 04/29/19 05:19 Hgb 12.6 g/dL (13.6-17.9) L 04/29/19 05:19 Hct 37.5 % (39.6-49.0) L 04/29/19 05:19 MCV 97.3 fL (80-100) 04/29/19 05:19 MCH 32.7 pg (27.0-35.0) 04/29/19 05:19 MCHC 33.6 g/dL (32.0-36.0) 04/29/19 05:19 RDW 14.7 % (12.1-15.2) 04/29/19 05:19 Plt Count 132 K/uL (152-406) L 04/29/19 05:19 MPV 9.3 fL (7.6-11.3) 04/29/19 05:19 Plt Distribution Width Cancelled 04/28/19 05:00 Absolute Nucleated RBC Cancelled 04/28/19 05:00 Neutrophils % 93.6 % (41.7-73.7) H 04/29/19 05:19 Lymphocytes % 1.8 % (15.3-44.8) L 04/29/19 05:19 Monocytes % 4.2 % (3.3-12.3) 04/29/19 05:19 Eosinophils % 0.0 % (0-4.4) 04/29/19 05:19 Basophils % 0.4 % (0-1.3) 04/29/19 05:19 Nucleated RBC % Cancelled 04/28/19 05:00 Absolute Neutrophils 10.6 K/uL (1.8-8.0) H 04/29/19 05:19 Segmented Neutrophils 91 % (40-80) H 04/28/19 05:54 Band Neutrophils 2 % (0-1) H 04/28/19 05:54 Absolute Lymphocytes 0.2 K/uL (0.7-4.9) L 04/29/19 05:19 Lymphocytes 5 % (15-42) L 04/28/19 05:54 Monocytes 2 % (0-10) 04/28/19 05:54 Absolute Monocytes 0.5 K/uL (0.1-1.3) 04/29/19 05:19 Absolute Eosinophils 0.0 K/uL (0-0.5) 04/29/19 05:19 Absolute Basophils 0.0 K/uL (0-0.5) 04/29/19 05:19 Diff Path Review Cancelled 04/28/19 05:00 Clumped Platelets Few 04/23/19 13:20 Morphology Comment Not seen (NOT SEEN) 04/28/19 05:54 PT 13.0 SECONDS (9.5-12.5) H 04/23/19 13:20 INR 1.11 04/23/19 13:20 pH 7.45 (7.35-7.45) 04/28/19 11:20 pCO2 22.0 mmHG (35-45) L 04/28/19 11:20 pO2 60.8 mmHG (75-100) L 04/28/19 11:20 HCO3 14.9 mmol/L (22-28) L 04/28/19 11:20 Base Excess -8.4 mmol/L 04/28/19 11:20 Oxyhemoglobin 91.1 % (94-97) L 04/28/19 11:20 ABG O2 Sat (Measured) 93.0 % (92-98.5) 04/28/19 11:20 ABG Carboxyhemoglobin 1.3 % (0-1.5) 04/28/19 11:20 ABG Methemoglobin 0.7 % (0-1.5) 04/28/19 11:20 Other Total Hgb 13.9 g/dl (12-18) 04/28/19 11:20 Inspired O2 32.0 % 04/28/19 11:20 Sodium 143 mmol/L (136-145) 04/29/19 05:19 Potassium 4.3 mmol/L (3.5-5.1) 04/29/19 05:19 Chloride 109 mmol/L (98-107) H 04/29/19 05:19 Carbon Dioxide 17 mmol/L (21-32) L 04/29/19 05:19 BUN 24 mg/dL (7-18) H 04/29/19 05:19 Creatinine 0.70 mg/dL (0.55-1.3) 04/29/19 05:19 Estimated GFR > 90 mL/min (=/>90) 04/29/19 05:19 Glucose 90 mg/dL (74-106) 04/29/19 05:19 Lactic Acid 9.3 mmol/L (0.4-2.0) H* 04/28/19 10:30 Calcium 10.4 mg/dL (8.5-10.1) H 04/29/19 05:19 Ionized Calcium 6.0 mg/dL (4.8-5.6) H 04/24/19 10:53 Phosphorus 1.8 mg/dL (2.5-4.9) L 04/28/19 05:54 Magnesium 1.8 mg/dL (1.8-2.4) 04/28/19 05:54 Iron 37.0 ug/dL (65-175) L 04/28/19 05:54 Total Bilirubin 0.7 mg/dL (0.2-1.0) 04/29/19 05:19 Direct Bilirubin 0.3 mg/dL (0-0.2) H 04/23/19 13:20 AST 43 U/L (15-37) H 04/29/19 05:19 ALT 27 U/L (12-78) 04/29/19 05:19 Alkaline Phosphatase 88 U/L (45-117) 04/29/19 05:19 Ammonia 45 umol/L (19-54) 04/25/19 13:16 Rapid Troponin I 0.04 ng/mL (0.0-0.045) 04/23/19 13:20 NT-Pro-B Natriuret Pep 272 pg/mL (<125) H 04/23/19 13:20 Serum Total Protein 5.0 g/dL (6.4-8.2) L 04/29/19 05:19 Albumin 1.8 g/dL (3.4-5.0) L 04/29/19 05:19 Globulin 3.2 g/dL (2.3-3.5) 04/29/19 05:19 Albumin/Globulin Ratio 0.6 (1.1-1.8) L 04/29/19 05:19 Lipase 775 U/L (73-393) H 04/28/19 05:54 Vitamin B12 736 pg/mL (193-986) 04/28/19 05:54 Vit D 1,25-Dihyd Total 82 pg/mL (18-72) H 04/24/19 10:53 1,25 Dihydroxy Vit D2 <8 pg/mL 04/24/19 10:53 1,25 Dihydroxy Vit D3 82 pg/mL 04/24/19 10:53 Serum Folate 2.6 ng/mL (3.1-17.5) L 04/28/19 05:54 Procalcitonin 0.21 ng/mL (<0.50) 04/23/19 14:19 TSH 2.000 uIU/mL (0.360-3.740) 04/28/19 05:54 Free T4 0.91 ng/dL (0.76-1.46) 04/28/19 05:54 PTH Intact < 6.3 pg/mL (18.4-80.1) L 04/24/19 10:53 Cortisol 22.33 ug/dL (SEE COMMENT) 04/28/19 05:54 Urine Color Dk yellow 04/28/19 16:56 Urine Appearance Clear 04/28/19 16:56 Urine pH 5.5 (5.0-7.0) 04/28/19 16:56 Ur Specific [place] 1.025 (1.005-1.030) 04/28/19 16:56 Urine Ketones 3+ (NEG) H 04/28/19 16:56 Urine Blood 3+ (NEG) H 04/28/19 16:56 Urine Nitrite Negative (NEG) 04/28/19 16:56 Urine Bilirubin Negative (NEG) 04/28/19 16:56 Urine Urobilinogen 1.0 mg/dL (0.2-1.0) 04/28/19 16:56 Ur Leukocyte Esterase Negative (NEG) 04/28/19 16:56 Urine RBC >50 /HPF (NONE SEEN) H 04/28/19 16:56 Urine WBC <5 /HPF (<5) 04/28/19 16:56 Ur Squamous Epith Cells <5 /HPF (NONE SEEN) 04/28/19 16:56 Amorphous Sediment 1+ /HPF (NONE SEEN) 04/23/19 14:30 Urine Bacteria <20 /HPF (NONE SEEN) 04/28/19 16:56 Urine Mucus Light /HPF (NONE SEEN) 04/28/19 16:56 Urine Yeast Present (NONE SEEN) H 04/28/19 16:56 Urine Yeast (Budding) Present (NONE SEEN) H 04/28/19 16:56 Urine Sperm Present (NONE SEEN) H 04/23/19 14:30 Urine Culture Reflexed Reflexed 04/28/19 16:56 Urine Glucose Negative (NEG) 04/28/19 16:56 Urine Total Protein 1+ (NEG) H 04/28/19 16:56 Plasma/Serum Alcohol < 3 mg/dL (<3) 04/23/19 13:20 Miscellaneous Test Cancelled 04/28/19 06:00 Microbiology Data (last 24 hrs): 04/23/19 14:47 Blood - Blood Aerobic Blood Culture - Final No growth in 5 days. 04/23/19 14:47 Blood - Blood Anaerobic Blood Culture - Final No growth in 5 days. 04/23/19 14:19 Blood - Blood Aerobic Blood Culture - Final No growth in 5 days. 04/23/19 14:19 Blood - Blood Anaerobic Blood Culture - Final No growth in 5 days. Medications List Reviewed: Yes Assessment And Plan Physician Review Additional Text: Impression: Lactic acidosis likely related to dehydration with noted acute renal injury Hypercalcemia with abnormal CT scan showing bulky lymphadenopathy in the mediastinum and hilar region suspect primary lung malignancy Hypertension COPD Tobacco/alcohol abuse Polymyalgia rheumatica on chronic steroids History of temporal arteritis on chronic steroids Plan: Lactic acidosis likely related to dehydration with noted acute renal injury: -Improved -Renal function back to baseline with IV fluid hydration. Acute respiratory failure with hypoxia/pulmonary lymphadenopathy -pulmonary lymphadenopathy will be difficult to reach by CT-guided biopsy per Interventional radiology -will discuss with Dr. Arias regarding option of bronchoscopy or PET scan as outpatient. Hypercalcemia -suspect hypercalcemia of malignancy. -pulmonology is following. Hypertension: -Continue with medication. Hold medication if blood pressure systolic less than 120 COPD: Continue with bronchodilators. Tobacco/alcohol abuse: -tobacco cessation advised. Polymyalgia rheumatica on chronic steroids: -Continue with medication including steroids and pain medication. History of temporal arteritis on chronic steroids: -Continue the medication including steroids.
[2019-04-29] MEDS: ENSURE HIGH PROTEIN 237 ML CAN PO SCH (20:33)
[2019-04-29] MEDS: TIZANIDINE 4 MG TABLET PO SCH (20:34)
[2019-04-30] MEDS: ALBUTEROL 2.5 MG/3 ML NEB SOL IH SCH ×4 (01:40→20:00)
[2019-04-30] MEDS: NACHLORIDE 0.45% 1,000 ML IV SCH ×3 (03:16→13:40)
[2019-04-30 05:55] LABS: Absolute Lymphocytes (CBC) 0.2 K/uL (0.7-4.9); Basophils % 0.4 % (0-1.3); Hematocrit 35.8 % (39.6-49.0); Lymphocytes % 2.2 % (15.3-44.8); MPV 9.5 fL (7.6-11.3)
[2019-04-30 06:15] LABS: ALT/SGPT 24 U/L (12-78); AST/SGOT 41 U/L (15-37); Albumin 1.7 g/dL (3.4-5.0); Alkaline Phosphatase 89 U/L (45-117); BUN Blood Urea Nitrogen 22 mg/dL (7-18); Bicarbonate 20 mmol/L (21-32); Bilirubin Total 0.6 mg/dL (0.2-1.0); Glucose Level 101 mg/dL (74-106); Magnesium 1.7 mg/dL (1.8-2.4); Phosphorus 1.9 mg/dL (2.5-4.9); Protein, Total 4.6 g/dL (6.4-8.2); Sodium Level 142 mmol/L (136-145)
[2019-04-30] MEDS: ARFORMOTEROL TARTRATE 15 MCG/2 ML VIAL.NEB NEB SCH ×2 (08:05→20:00)
[2019-04-30] MEDS: ENOXAPARIN 40 MG/0.4 ML SQ SCH (08:41)
[2019-04-30] MEDS: LISINOPRIL 20 MG TAB PO SCH (08:43)
[2019-04-30] MEDS: GABAPENTIN 300 MG CAP PO SCH ×3 (08:44→21:11)
[2019-04-30] MEDS: ENSURE HIGH PROTEIN 237 ML CAN PO SCH ×2 (08:44→21:00)
[2019-04-30] MEDS: POTASS/SODIUM PHOSPHATE 1 PKT POWD.PACK PO SCH ×3 (08:44→11:54)
[2019-04-30] MEDS: VITAMIN D 1000 UNIT TAB PO SCH (08:44)
[2019-04-30] MEDS: DULOXETINE 30 MG CAP PO SCH (08:44)
[2019-04-30] MEDS: predniSONE 20 MG TAB PO SCH ×2 (08:44→21:11)
[2019-04-30] MEDS ORDERED: MAGNESIUM SULFATE 1 gm IVPB 1 GM/100 ML BAG IV ONE (09:00)
--- NOTE | 2019-04-30 11:10 | EKG ---
Test Date: 2019-04-29 Test Time: 17:07:47 Wheel Inspector: SHAMEKA MEASUREMENT RESULTS: Intervals: Rate: 101 FL: 140 QRSD: 86 QT: 324 QTc: 420 [place]: P: 44 FL: 140 QRS: 42 T: 54 INTERPRETIVE STATEMENTS: Sinus tachycardia Otherwise normal ECG Compared to ECG 04/23/2019 13:23:39 No significant changes Electronically Signed On 04-30-19 11:06:25 CDT by Nitish Perez
--- NOTE | 2019-04-30 15:26 | P.PN ---
Subjective Date of Service: 04/30/19 Primary Care Provider: Unknown Chief Complaint: Hypercalcemia possible lung cancer Subjective: No new changes Patient is awake, oriented x3 and and states he was to be discharged home. He reports shortness of breath is better. He is maintained on 3 L of oxygen by nasal cannula with SaO2 around 90-92%. No major changes from yesterday. He is globally weak and require 2 person assist for transfer. Review of Systems 10-point ROS is otherwise unremarkable Physical Examination - Vital Signs Temperature: 98.2 F Blood Pressure: 131/74 Pulse: 97 Respirations: 28 Pulse Ox (%): 93 - Physical Exam General: Alert, In no apparent distress, Oriented x3 HEENT: Mucous membr. moist/pink Neck: Supple, JVD not distended Respiratory: Normal air movement (Mild bilateral basilar crackles), Diminished Cardiovascular: Regular rate/rhythm, Normal S1 S2, No murmurs, Edema (1+ Bilateral lower extremity edema) Gastrointestinal: Normal bowel sounds, Soft and benign, Non-distended Musculoskeletal: No swelling, No tenderness Neurological: Normal speech, Cranial nerves 3-12 intact, Other (Globally weak.) - Studies Medications List Reviewed: Yes Assessment And Plan Physician Review Additional Text: Impression: Lactic acidosis likely related to dehydration with noted acute renal injury Hypercalcemia with abnormal CT scan showing bulky lymphadenopathy in the mediastinum and hilar region suspect primary lung malignancy Hypertension COPD Tobacco/alcohol abuse Polymyalgia rheumatica on chronic steroids History of temporal arteritis on chronic steroids Plan: Lactic acidosis likely related to dehydration with noted acute renal injury: -Improved -Renal function has improved back to baseline. Acute respiratory failure with hypoxia/pulmonary lymphadenopathy -patient maintained on 3 L of oxygen by nasal canal -case discussed with Dr. Arias. -EBUS as outpatient per Dr. Arias once patient has clinically improved and functional performance is better Hypercalcemia -suspect hypercalcemia of malignancy. -Stable Hypertension: -Continue with medication. Hold medication if blood pressure systolic less than 120 COPD: Continue with bronchodilators. Tobacco/alcohol abuse: -tobacco cessation advised. Polymyalgia rheumatica on chronic steroids: -Continue with medication including steroids and pain medication. History of temporal arteritis on chronic steroids: -Continue the medication including steroids. Goals of care: -patient states he prefers to go home. -I discussed hospice and he is receptive -awaiting family members to discuss hospice and social support at home.
[2019-04-30] MEDS: Levofloxacin 750mg IV 750 MG/150 ML BAG IV SCH (18:02)
[2019-04-30] MEDS: TIZANIDINE 4 MG TABLET PO SCH (21:11)
[2019-05-01] MEDS: ALBUTEROL 2.5 MG/3 ML NEB SOL IH SCH ×2 (02:00→08:00)
[2019-05-01] MEDS: NACHLORIDE 0.45% 1,000 ML IV SCH (02:00)
[2019-05-01 06:41] LABS: Absolute Lymphocytes (CBC) 0.2 K/uL (0.7-4.9); Basophils % 0.4 % (0-1.3); Hematocrit 36.5 % (39.6-49.0); Lymphocytes % 1.9 % (15.3-44.8); MPV 9.4 fL (7.6-11.3); RBC Red Blood Cell Count 3.75 M/uL (4.33-5.43)
[2019-05-01 06:59] LABS: ALT/SGPT 24 U/L (12-78); AST/SGOT 36 U/L (15-37); Albumin 1.6 g/dL (3.4-5.0); Alkaline Phosphatase 85 U/L (45-117); BUN Blood Urea Nitrogen 22 mg/dL (7-18); Bicarbonate 19 mmol/L (21-32); Bilirubin Total 0.6 mg/dL (0.2-1.0); Glucose Level 93 mg/dL (74-106); Magnesium 1.7 mg/dL (1.8-2.4); Phosphorus 2.9 mg/dL (2.5-4.9); Potassium 4.3 mmol/L (3.5-5.1); Protein, Total 4.6 g/dL (6.4-8.2); Sodium Level 140 mmol/L (136-145)
[2019-05-01] MEDS: FOLIC ACID 1 MG in NA CHLORIDE 0.9% 50 ML IV SCH (08:45)
[2019-05-01] MEDS: ENSURE HIGH PROTEIN 237 ML CAN PO SCH ×3 (08:46→21:44)
[2019-05-01] MEDS: DULOXETINE 30 MG CAP PO SCH (08:46)
[2019-05-01] MEDS: VITAMIN D 1000 UNIT TAB PO SCH (08:46)
[2019-05-01] MEDS: GABAPENTIN 300 MG CAP PO SCH ×3 (08:47→21:44)
[2019-05-01] MEDS: predniSONE 20 MG TAB PO SCH (08:47)
[2019-05-01] MEDS: ENOXAPARIN 40 MG/0.4 ML SQ SCH (08:47)
[2019-05-01] MEDS: LISINOPRIL 20 MG TAB PO SCH (08:47)
[2019-05-01] MEDS: ARFORMOTEROL TARTRATE 15 MCG/2 ML VIAL.NEB NEB SCH ×2 (08:50→20:00)
[2019-05-01] MEDS ORDERED: FUROSEMIDE 20 MG/ 2ML VIAL IV ONE (08:52)
[2019-05-01] MEDS ORDERED: MAGNESIUM SULFATE 1 gm IVPB 1 GM/100 ML BAG IV ONE (09:00)
[2019-05-01] MEDS ORDERED: FOLIC ACID 5 MG/ML VIAL IVP SCH (09:00)
[2019-05-01] MEDS ORDERED: THIAMINE 200 MG/2 ML INJ IVP SCH (09:00)
[2019-05-01] MEDS ORDERED: ALBUTEROL 2.5 MG/3 ML NEB SOL IH PRN (09:12)
--- NOTE | 2019-05-01 09:12 | P.PN ---
Subjective Date of Service: 05/01/19 Primary Care Provider: Unknown Chief Complaint: Hypercalcemia possible lung cancer abnormal CT scan Patient is feeling weak his x-ray is very abnormal now has bilateral pulmonary infiltrates denies any fever chills he feels weak no cough daughter at the bedside patient is an alcoholic heavy smoker Review of Systems General: Weakness Respiratory: Cough, Shortness of Breath Physical Examination - Vital Signs Temperature: 98.7 F Blood Pressure: 139/87 Pulse: 140 Respirations: 18 Pulse Ox (%): 92 - Physical Exam General: Alert, In no apparent distress, Oriented x3 HEENT: Atraumatic Neck: Supple Respiratory: Clear to auscultation bilaterally Cardiovascular: No edema, Normal S1 S2 - Studies Medications List Reviewed: Yes Assessment & Plan - Problems (Diagnosis) (1) Lung cancer Current Visit: Yes Status: Acute Plan: I strongly suspect that he has lung cancer patient has mediastinal adenopathy with multiple pulmonary nodules and underlying COPD on the CT scan Dc Romero catheter ambulate Qualifiers: Laterality: unspecified laterality Lung location: unspecified part of lung Qualified Code(s): C34.90 - Malignant neoplasm of unspecified part of unspecified bronchus or lung (2) Abnormal chest x-ray Current Visit: Yes Status: Acute Plan: Patient now has bilateral pulmonary infiltrates possible volume overload pulmonary edema patient's cultures are all negative Dc antibiotics I have added some Lasix echocardiogram patient still has mild hypercalcemia despite IV fluids Physician Review Additional Text: Impression: Lactic acidosis likely related to dehydration with noted acute renal injury Hypercalcemia with abnormal CT scan showing bulky lymphadenopathy in the mediastinum and hilar region suspect primary lung malignancy Hypertension COPD Tobacco/alcohol abuse Polymyalgia rheumatica on chronic steroids History of temporal arteritis on chronic steroids Plan: Lactic acidosis likely related to dehydration with noted acute renal injury: -Improved -Renal function has improved back to baseline. Acute respiratory failure with hypoxia/pulmonary lymphadenopathy -patient maintained on 3 L of oxygen by nasal canal -case discussed with Dr. Arias. -EBUS as outpatient per Dr. Arias once patient has clinically improved and functional performance is better Hypercalcemia -suspect hypercalcemia of malignancy. -Stable Hypertension: -Continue with medication. Hold medication if blood pressure systolic less than 120 COPD: Continue with bronchodilators. Tobacco/alcohol abuse: -tobacco cessation advised. Polymyalgia rheumatica on chronic steroids: -Continue with medication including steroids and pain medication. History of temporal arteritis on chronic steroids: -Continue the medication including steroids. Goals of care: -patient states he prefers to go home. -I discussed hospice and he is receptive -awaiting family members to discuss hospice and social support at home.
[2019-05-01] MEDS ORDERED: METOPROLOL TAR 25 MG TAB PO ONE (09:32)
[2019-05-01] MEDS: SOD FERRIC GLUC COMPLX/SUCROSE 125 MG in NA CHLORIDE 0.9% 100 ML IV SCH (09:35)
--- NOTE | 2019-05-01 10:36 | RAD REPORT ---
EXAM DESCRIPTION: RAD - Chest Single View - 05/01/2019 10:14 am CLINICAL HISTORY: Follow up Pneumonia/ARDS Chest pain. COMPARISON: Chest Single View dated 04/28/2019; Chest Single View dated 04/23/2019; Chest Single View d ated 04/01/2019 FINDINGS: Portable technique limits examination quality. Mild improvement in bilateral pulmonary opacities noted since the comparative study compatible with m ild improvement in lung aeration. The heart is moderately enlarged in size. No displaced fractures. IMPRESSION: Mild improvement lung aeration since comparative study.
--- NOTE | 2019-05-01 16:04 | P.PN ---
Subjective Date of Service: 05/01/19 Primary Care Provider: Unknown Chief Complaint: Hypercalcemia possible lung cancer abnormal CT scan Patient is awake, more lucid, oriented x3. He reports shortness of breath is better. He is maintained on 3 L of oxygen by nasal cannula. He worked with physical therapy today. Patient noted to be in AFib with RVR. No fever. He has soft blood pressure. Review of Systems 10-point ROS is otherwise unremarkable Physical Examination - Vital Signs Temperature: 98.7 F Blood Pressure: 100/60 Pulse: 157 Respirations: 20 Pulse Ox (%): 95 - Physical Exam General: In no apparent distress, Oriented x3 HEENT: Mucous membr. moist/pink Neck: Supple, JVD not distended Respiratory: Diminished Cardiovascular: No edema, No murmurs, Irregular heart rate/rhythm Gastrointestinal: Normal bowel sounds, Soft and benign, No tenderness Integumentary: Erythema (Bilateral lower extremity venostasis dermatitis.) Neurological: Other (Globally weak.) - Studies Medications List Reviewed: Yes Assessment And Plan Physician Review Additional Text: Impression: Lactic acidosis likely related to dehydration with noted acute renal injury Hypercalcemia with abnormal CT scan showing bulky lymphadenopathy in the mediastinum and hilar region suspect primary lung malignancy Hypertension COPD Tobacco/alcohol abuse Polymyalgia rheumatica on chronic steroids History of temporal arteritis on chronic steroids Plan: Lactic acidosis likely related to dehydration with noted acute renal injury: -Improved -Renal function has improved back to baseline. Acute respiratory failure with hypoxia/pulmonary lymphadenopathy -patient maintained on 3 L of oxygen by nasal canal -case discussed with Dr. Arias. -EBUS as outpatient per Dr. Arias once patient has clinically improved and functional performance is better. -daughter is requesting less invasive PET scan before bronchoscopy. -this can done as an outpatient after discharge. Hypercalcemia -suspect hypercalcemia of malignancy. -Stable Hypertension: -hold antihypertensives COPD: Continue with bronchodilators. Tobacco/alcohol abuse: -tobacco cessation advised. Polymyalgia rheumatica on chronic steroids: -Continue with medication including steroids and pain medication. History of temporal arteritis on chronic steroids: -Continue medication including steroids. Atrial fibrillation with RVR -patient was soft blood pressure -RVR did not respond to oral metoprolol. -he started on metoprolol b.i.d. -start Cardizem drip. Pulmonary edema -discontinue IV fluid -trial of IV Lasix -Dr. Arias input appreciated. Goals of care: -spent Lengthy time discussing goals of care with the patient and 2 daughters. -patient now want to continue aggressive treatment. -he will be dispositioned to rehab once clinically stable. PET scan to be arranged by his PCP to be done as an outpatient, after which they can pursue tissue diagnosis via EBUS.
[2019-05-01] MEDS: METOPROLOL TAR 25 MG TAB PO SCH (17:44)
--- NOTE | 2019-05-01 20:21 | EKG ---
Test Date: 2019-05-01 Test Time: 08:24:55 [employer] Architect: SAL MEASUREMENT RESULTS: Intervals: Rate: 157 NE: QRSD: 88 QT: 270 QTc: 436 Parrish: P: NE: QRS: 29 T: 55 INTERPRETIVE STATEMENTS: Atrial fibrillation with rapid ventricular response Nonspecific T wave abnormality, probably digitalis effect Abnormal ECG Compared to ECG 04/29/2019 17:07:47 T-wave abnormality now present Sinus tachycardia no longer present Electronically Signed On 05-01-19 20:18:51 CDT by Nitish Perez
[2019-05-01] MEDS: TIZANIDINE 4 MG TABLET PO SCH (21:44)
[2019-05-02 06:02] LABS: Albumin 1.7 g/dL (3.4-5.0); Bilirubin Total 0.7 mg/dL (0.2-1.0); Magnesium 2.1 mg/dL (1.8-2.4); Potassium 4.4 mmol/L (3.5-5.1); Protein, Total 5.2 g/dL (6.4-8.2)
[2019-05-02] MEDS: METOPROLOL TAR 25 MG TAB PO SCH ×2 (06:05→17:43)
[2019-05-02] MEDS ORDERED: FUROSEMIDE 20 MG/ 2ML VIAL IV ONE (07:24)
[2019-05-02] MEDS ORDERED: NA CHLORIDE 0.9% 250 ML IV ONE ×3 (07:24→11:01)
--- NOTE | 2019-05-02 08:49 | P.PN ---
Date of Service: 05/02/19 Patient was hypercalcemia. Corrected calcium is 13.3. DC Vitamin-D. Hold off on lisinopril. Bolus IV fluids and low-dose Lasix. Repeat calcium level in the morning
[2019-05-02] MEDS: GABAPENTIN 300 MG CAP PO SCH ×3 (09:00→21:00)
[2019-05-02] MEDS ORDERED: THIAMINE HCL 100 MG TABLET PO SCH (09:00)
[2019-05-02] MEDS: ENSURE HIGH PROTEIN 237 ML CAN PO SCH ×2 (09:00→21:00)
[2019-05-02] MEDS: ARFORMOTEROL TARTRATE 15 MCG/2 ML VIAL.NEB NEB SCH ×2 (09:14→20:00)
--- NOTE | 2019-05-02 09:30 | RAD REPORT ---
EXAM DESCRIPTION: Caleb Single View05/02/2019 6:52 am CLINICAL HISTORY: Chest pain COMPARISON: May 01 FINDINGS: Mild improvement in the bilateral pulmonary opacities which may represent pulmonary edema or pneumonia Heart remains enlarged
[2019-05-02] MEDS: SOD FERRIC GLUC COMPLX/SUCROSE 125 MG in NA CHLORIDE 0.9% 100 ML IV SCH (09:59)
[2019-05-02] MEDS: FOLIC ACID 1 MG in NA CHLORIDE 0.9% 50 ML IV SCH (09:59)
[2019-05-02] MEDS ORDERED: PAMIDRONATE DISOD 30 MG VIAL IV ONE (10:43)
[2019-05-02] MEDS: ENOXAPARIN 40 MG/0.4 ML SQ SCH (10:47)
[2019-05-02] MEDS: DULOXETINE 30 MG CAP PO SCH (10:48)
--- NOTE | 2019-05-02 10:50 | P.PN ---
Subjective Date of Service: 05/02/19 Primary Care Provider: Unknown Chief Complaint: Hypercalcemia possible lung cancer abnormal CT scan Patient transferred to the ICU due to AFib is currently hypotensive no longer in AFib Review of Systems General: Weakness Respiratory: Shortness of Breath Physical Examination - Vital Signs Temperature: 98 F Blood Pressure: 85/40 Pulse: 90 Respirations: 20 Pulse Ox (%): 94 - Physical Exam General: Alert, Cooperative Respiratory: Clear to auscultation bilaterally Cardiovascular: Regular rate/rhythm, Normal S1 S2, Edema (Mild edema) - Studies Medications List Reviewed: Yes Assessment & Plan - Problems (Diagnosis) (1) Lung cancer Current Visit: Yes Status: Acute Plan: I strongly suspect that he has lung cancer patient has mediastinal adenopathy with multiple pulmonary nodules and underlying COPD on the CT scan Dc Romero catheter ambulate Qualifiers: Laterality: unspecified laterality Lung location: unspecified part of lung Qualified Code(s): C34.90 - Malignant neoplasm of unspecified part of unspecified bronchus or lung (2) Abnormal chest x-ray Current Visit: Yes Status: Acute Plan: Patient has right mid lobe infiltrate was chest x-ray does look better hypotensive possible pneumonia add meropenem patient was already on levofloxacin repeat blood cultures (3) Hypercalcemia Current Visit: Yes Status: Acute Plan: Presumed malignant in origin add IV pamidronate 1 dose patient was on steroids in that was discontinued Physician Review Additional Text: Impression: Lactic acidosis likely related to dehydration with noted acute renal injury Hypercalcemia with abnormal CT scan showing bulky lymphadenopathy in the mediastinum and hilar region suspect primary lung malignancy Hypertension COPD Tobacco/alcohol abuse Polymyalgia rheumatica on chronic steroids History of temporal arteritis on chronic steroids Plan: Lactic acidosis likely related to dehydration with noted acute renal injury: -Improved -Renal function has improved back to baseline. Acute respiratory failure with hypoxia/pulmonary lymphadenopathy -patient maintained on 3 L of oxygen by nasal canal -case discussed with Dr. Arias. -EBUS as outpatient per Dr. Arias once patient has clinically improved and functional performance is better. -daughter is requesting less invasive PET scan before bronchoscopy. -this can done as an outpatient after discharge. Hypercalcemia -suspect hypercalcemia of malignancy. -Stable Hypertension: -hold antihypertensives COPD: Continue with bronchodilators. Tobacco/alcohol abuse: -tobacco cessation advised. Polymyalgia rheumatica on chronic steroids: -Continue with medication including steroids and pain medication. History of temporal arteritis on chronic steroids: -Continue medication including steroids. Atrial fibrillation with RVR -patient was soft blood pressure -RVR did not respond to oral metoprolol. -he started on metoprolol b.i.d. -start Cardizem drip. Pulmonary edema -discontinue IV fluid -trial of IV Lasix -Dr. Arias input appreciated. Goals of care: -spent Lengthy time discussing goals of care with the patient and 2 daughters. -patient now want to continue aggressive treatment. -he will be dispositioned to rehab once clinically stable. PET scan to be arranged by his PCP to be done as an outpatient, after which they can pursue tissue diagnosis via EBUS.
[2019-05-02] MEDS ORDERED: NA CHLORIDE 0.9% IV SCH (11:00)
[2019-05-02] MEDS ORDERED: PAMIDRONATE IV SCH (11:00)
[2019-05-02] MEDS: Meropenem 1,000 MG in NA CHLORIDE 0.9% 100 ML IV SCH ×2 (12:09→17:57)
--- NOTE | 2019-05-02 12:19 | P.PN ---
Subjective Date of Service: 05/02/19 Primary Care Provider: Unknown Chief Complaint: Hypercalcemia possible lung cancer abnormal CT scan Patient clinical condition is worse today. He is more lethargic today. He is oriented to person and place. He is currently hypotensive, no longer any afib. Status post 250 mL normal saline bolus times x 2. No fever. Family reports very poor oral intake. Review of Systems 10-point ROS is otherwise unremarkable Physical Examination - Vital Signs Temperature: 98 F Blood Pressure: 85/40 Pulse: 90 Respirations: 20 Pulse Ox (%): 94 - Physical Exam General: In no apparent distress, Other (Lethargic) Neck: Supple, JVD not distended Respiratory: Diminished (No wheezes or rhonchi. No crackles heard.) Cardiovascular: Regular rate/rhythm, Normal S1 S2, Other, Edema (Trace bilateral lower extremity pitting edema.) Gastrointestinal: Normal bowel sounds, Soft and benign, No ascites Musculoskeletal: Erythema (Bilateral lower extremity venous stasis dermatitis) Neurological: Other (Lethargic. Moves all extremities spontaneously.) - Studies Medications List Reviewed: Yes Assessment And Plan Physician Review Additional Text: Impression: Lactic acidosis likely related to dehydration with noted acute renal injury Hypercalcemia with abnormal CT scan showing bulky lymphadenopathy in the mediastinum and hilar region suspect primary lung malignancy Hypertension COPD Tobacco/alcohol abuse Polymyalgia rheumatica on chronic steroids History of temporal arteritis on chronic steroids Plan: Lactic acidosis likely related to dehydration with noted acute renal injury: -Renal function has improved back to baseline. -repeat lactate today. Acute respiratory failure with hypoxia/pulmonary lymphadenopathy -patient maintained on 3 L of oxygen by nasal canal -case discussed with Dr. Arias. -EBUS as outpatient per Dr. Arias once patient has clinically improved and functional performance is better. -daughter is requesting less invasive PET scan before bronchoscopy. -this can done as an outpatient after discharge. Hypercalcemia -worse to today. -dehydration could be contributing to increased calcium level -suspect hypercalcemia of malignancy. -1 dose palmidronate IV ordered. Hypertension: -hold antihypertensives COPD: -Stable -Continue with bronchodilators. Tobacco/alcohol abuse: -tobacco cessation advised. Polymyalgia rheumatica on chronic steroids: -Prednisone on hold -Check cortisol level. History of temporal arteritis on chronic steroids: -Continue medication including steroids. Atrial fibrillation with RVR -patient was soft blood pressure -RVR did not respond to oral metoprolol. -Hold metoprolol due to hypotension -Cardizem drip as needed. Pulmonary edema/possible pneumonia -trial of IV Lasix yesterday -Dr. Arias input appreciated. -Hold lasix today due to hypotension and dehydration. -status post normal saline bolus x2 -serial chest x-ray. -IV meropenem added to Levaquin to broaden antibiotic coverage Hypotension -status post normal saline bolus x2 -trial of abdomen infusion -vasopressors if no response to the above measures Goals of care: -spent Lengthy time discussing goals of care with the patient and 2 daughters. -ongoing discussion among family regarding overall goals of care. -until family makes a decision regarding hospice, plan is to disposition him to rehab once clinically stable. PET scan to be arranged by his PCP to be done as an outpatient, after which they can pursue tissue diagnosis via EBUS.
[2019-05-02] MEDS ORDERED: ALBUMIN HUM 5% 500 ML IV SCH (13:00)
[2019-05-02] MEDS: D5 0.9 NS 1,000 ML IV SCH ×2 (15:00→16:35)
[2019-05-02] MEDS ORDERED: Meropenem 1000 MG/VIAL IV SCH (17:00)
[2019-05-02 20:25] LABS: Urine Appearance CLEAR; Urine Blood 2+ (NEG); Urine Color YELLOW; Urine Glucose NEGATIVE (NEG); Urine Protein NEGATIVE (NEG)
[2019-05-02 20:29] LABS: Urine Microscopic Reflex ORDER UMIC
[2019-05-02 20:30] LABS: Urine Bilirubin NEGATIVE (NEG)
[2019-05-02] MEDS: TIZANIDINE 4 MG TABLET PO SCH (21:00)
[2019-05-02 21:31] LABS: Urine Bacteria <20 /HPF (NONE SEEN); Urine Culture Reflex Order REFLEXED; Urine Mucus 1+ /HPF (NONE SEEN); Urine Yeast PRESENT (NONE SEEN)
[2019-05-03] MEDS: Meropenem 1,000 MG in NA CHLORIDE 0.9% 100 ML IV SCH ×3 (00:49→17:33)
[2019-05-03] MEDS ORDERED: DIGOXIN 0.25 MG/ML AMP IV ONE ×2 (03:17→13:00)
[2019-05-03] MEDS ORDERED: HYDROCORTISONE SUC 100 MG INJ IV ONE (04:31)
[2019-05-03] MEDS ORDERED: WATER FOR INJ,STERILE 10 ML ONE ×2 (05:23→10:10)
[2019-05-03] MEDS ORDERED: METOPROLOL TARTRATE 5 MG/5 ML INJ IV STA ×3 (05:55→16:58)
[2019-05-03] MEDS: METOPROLOL TAR 25 MG TAB PO SCH ×2 (06:00→17:32)
[2019-05-03 06:17] LABS: Absolute Lymphocytes (CBC) 0.3 K/uL (0.7-4.9); Basophils % 0.6 % (0-1.3); Hematocrit 43.3 % (39.6-49.0); Lymphocytes % 2.2 % (15.3-44.8); MPV 8.9 fL (7.6-11.3); RBC Red Blood Cell Count 4.43 M/uL (4.33-5.43)
[2019-05-03 06:52] LABS: Albumin 1.9 g/dL (3.4-5.0); Bilirubin Total 0.8 mg/dL (0.2-1.0); Magnesium 2.1 mg/dL (1.8-2.4); Phosphorus 2.9 mg/dL (2.5-4.9); Potassium 4.4 mmol/L (3.5-5.1); Protein, Total 5.5 g/dL (6.4-8.2)
[2019-05-03] MEDS: ENSURE HIGH PROTEIN 237 ML CAN PO SCH ×2 (07:36→21:00)
[2019-05-03] MEDS: FOLIC ACID 1 MG TABLET PO SCH ×2 (07:36→21:00)
[2019-05-03] MEDS: DULOXETINE 30 MG CAP PO SCH (07:36)
[2019-05-03] MEDS: ARFORMOTEROL TARTRATE 15 MCG/2 ML VIAL.NEB NEB SCH ×2 (07:40→20:00)
[2019-05-03] MEDS: IPRATROPIUM BROM 0.5MG/2.5ML NEB PRN (07:40)
[2019-05-03] MEDS: GABAPENTIN 300 MG CAP PO SCH (08:24)
[2019-05-03] MEDS ORDERED: FUROSEMIDE 20 MG/ 2ML VIAL IV ONE (09:00)
[2019-05-03] MEDS ORDERED: NOREPINEPHRINE 4 MG in D5W 250 ML IV PRN (09:27)
[2019-05-03] MEDS ORDERED: Pharmacy Consult 1 EA XX PRN (09:28)
[2019-05-03 09:56] LABS: Blood Morphology Comment NOT SEEN (NOT SEEN); Platelet Estimate ADEQ; Urine White Blood Cell Casts OK
[2019-05-03] MEDS ORDERED: ALBUMIN HUM 5% 500 ML IV SCH (10:00)
[2019-05-03] MEDS: THIAMINE 200 MG/2 ML INJ IVP SCH (10:05)
[2019-05-03] MEDS: ENOXAPARIN 40 MG/0.4 ML SQ SCH (10:05)
[2019-05-03] MEDS: HYDROCORTISONE SUC 100 MG INJ IV SCH ×2 (10:07→21:12)
--- NOTE | 2019-05-03 10:39 | P.PN ---
Subjective Date of Service: 05/16/19 Primary Care Provider: Unknown Chief Complaint: Respiratory failure shock Patient's condition has worsened a he is hypotensive in shock hypoglycemic currently on BiPAP and on vasopressors Review of Systems is unable to be obtained Physical Examination - Vital Signs Temperature: 97.8 F Blood Pressure: 101/57 Pulse: 121 Respirations: 27 Pulse Ox (%): 98 - Physical Exam General: Unresponsive Neck: Supple Respiratory: Clear to auscultation bilaterally, Diminished Cardiovascular: Normal S1 S2, Edema Gastrointestinal: Normal bowel sounds Musculoskeletal: No clubbing - Studies Medications List Reviewed: Yes Assessment & Plan - Problems (Diagnosis) (1) Lung cancer Status: Acute Plan: I strongly suspect that he has lung cancer patient has mediastinal adenopathy with multiple pulmonary nodules and underlying COPD on the CT scan Dc Romero catheter ambulate Qualifiers: Laterality: unspecified laterality Lung location: unspecified part of lung Qualified Code(s): C34.90 - Malignant neoplasm of unspecified part of unspecified bronchus or lung (2) Abnormal chest x-ray Status: Acute Plan: Patient has right mid lobe infiltrate was chest x-ray does look better hypotensive possible pneumonia add meropenem patient was already on levofloxacin repeat blood cultures Physician Review Additional Text: I
[2019-05-03] MEDS: FLUCONAZOLE 400 MG IVPB 400 MG/200 ML BAG IV SCH (10:40)
[2019-05-03] MEDS: D5 0.9 NS 1,000 ML IV SCH (11:00)
[2019-05-03 11:02] LABS: Arterial Blood Carboxyhemoglob 0.8 % (0-1.5); Blood Gas Oxyhemoglobin 97.2 % (94-97); Blood O2 Saturation 98.6 % (92-98.5)
--- NOTE | 2019-05-03 11:25 | P.PN ---
Date of Service: 05/03/19 Discussed code status with family. ICU nurse present in the room. Family wishes for patient to be a do not resuscitate. Order placed in the computer.
[2019-05-03] MEDS: VANCOMYCIN 1.75 GM in NA CHLORIDE 0.9% 500 ML IVPB SCH ×2 (11:55→23:13)
[2019-05-03] MEDS ORDERED: HYDROCORTISONE SUC 100 MG INJ IV SCH (12:00)
[2019-05-03] MEDS ORDERED: ACETAMINOPHEN 650MG/RECT SUPP PR ONE (12:00)
[2019-05-03] MEDS: D5 NS IV SCH ×2 (12:05)
[2019-05-03] MEDS: NA BICARB IV SCH ×2 (12:05)
--- NOTE | 2019-05-03 12:22 | RAD REPORT ---
EXAM DESCRIPTION: RAD - Chest Single View - 05/03/2019 10:23 am CLINICAL HISTORY: volume overload Chest pain. COMPARISON: Chest Single View dated 05/02/2019; Chest Single View dated 05/02/2019; Chest Single View dated 05/01/2019; Chest Single View dated 04/28/2019 FINDINGS: Portable technique limits examination quality. Mild improvement in lung aeration is seen since comparative study. Right PICC line has tip in the SVC . The heart is normal in size. Bilateral hilar fullness again noted, unchanged. IMPRESSION: Mild improvement in lung aeration since comparative study.
[2019-05-03] MEDS: TIZANIDINE 4 MG TABLET PO SCH (21:00)
[2019-05-04] MEDS: NA BICARB IV SCH ×2 (00:15)
[2019-05-04] MEDS: D5 NS IV SCH ×2 (00:15)
[2019-05-04] MEDS: Meropenem 1,000 MG in NA CHLORIDE 0.9% 100 ML IV SCH ×3 (01:11→17:31)
--- NOTE | 2019-05-04 01:55 | P.PN ---
Date of Service: 05/03/19 Subjective Date of Service: 05/03/19 Subjective: Patient is not doing well clinically. Patient not really interacting much. He moves his right upper extremities. His strength is severely diminished. 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 He was on steroids which will continue. Patient also has elevated lactic acid levels. This was felt to be related to the dehydration. I believe he is malnourished and this was confirmed with thiamine deficiency. This could also result in secondary elevated lactic acidosis. Patient is very lethargic and does not answer questions. Patient is on a Levophed drip at 30 mics. Hopefully , he will respond to the IV steroids. Family is considering withdrawal of care because he does have what appears to be metastatic lung cancer. They were hoping to get a PET scan as well. Unless he has significant improvement this probably will not happen. He is currently hypotensive, and ge also had atrial fibrillation. Status post 250 mL normal saline bolus times x 2. No fever. Family reports very poor oral intake. Patient also has hypercalcemia. We will go ahead and discontinue vitamin-D. Review of Systems 10-point ROS is otherwise unremarkable Physical Examination - Vital Signs Reviewed - Physical Exam General: In no apparent distress, Other (Lethargic); generalized weakness; moves the right upper extremity but with generalized diffuse weakness Respiratory: Bibasilar crackles Cardiovascular: Regular rate/rhythm, Normal S1 S2, Other, Edema (Trace bilateral lower extremity pitting edema.) Gastrointestinal: Normal bowel sounds, mildly distended; no ascites Musculoskeletal: Bilateral lower extremity venous stasis dermatitis Neurological: Lethargic. Moves all extremities spontaneously. Assessment And Plan Impression: 1. Lactic acidosis-type B 2. Hypercalcemia secondary to malignancy 3. Hypertension 4. COPD 5. Tobacco/alcohol abuse 6. Polymyalgia rheumatica on chronic steroids 7. History of temporal arteritis on chronic steroids Plan: Lactic acidosis; malnourishment and thiamine deficiency: -supplement folate and thiamine as well as continue with supplementation to improve nourishment -repeat lactate today. Acute respiratory failure with hypoxia/pulmonary lymphadenopathy -patient maintained on 3 L of oxygen by nasal canal -appreciate Pulmonary assistance in patient's care -continue with nebs, steroids, and antibiotics Hypercalcemia of malignancy -pamidronate Hypertension: -hold antihypertensives COPD: -Stable -Continue with bronchodilators. Tobacco/alcohol abuse: -tobacco cessation Polymyalgia rheumatica and history of temporal arteritis -patient had been restarted on steroids Atrial fibrillation with RVR -RVR did not respond to oral metoprolol. -digoxin started Pulmonary edema/possible pneumonia -trial of IV Lasix yesterday -Dr. Arias input appreciated. -continue with albumin -serial chest x-ray. -IV meropenem added to Levaquin to broaden antibiotic coverage Hypotension -continue with Levophed; may be related to adrenal insufficiency. IV hydrocortisone has been restarted. May be able to wean off of Levophed Goals of care: -patient's prognosis is poor. He may improve with restarting the IV steroids and with supplementation of depleted vitamins he may have some mild clinical improvement but he does have metastatic lung cancer which will probably be unable to be treated. If there is not a significant improvement in his clinical condition in he next couple of days he may need hospice care
[2019-05-04] MEDS: METOPROLOL TAR 25 MG TAB PO SCH ×2 (06:00→17:02)
[2019-05-04] MEDS: FOLIC ACID 1 MG TABLET PO SCH ×2 (07:14→21:00)
[2019-05-04] MEDS: ENSURE HIGH PROTEIN 237 ML CAN PO SCH ×2 (07:14→21:00)
[2019-05-04] MEDS: IPRATROPIUM BROM 0.5MG/2.5ML NEB PRN ×2 (07:28→20:28)
[2019-05-04] MEDS: ARFORMOTEROL TARTRATE 15 MCG/2 ML VIAL.NEB NEB SCH ×2 (07:28→20:00)
[2019-05-04] MEDS ORDERED: METOPROLOL TARTRATE 5 MG/5 ML INJ IV PRN (08:03)
[2019-05-04 08:26] LABS: Absolute Lymphocytes (CBC) 0.2 K/uL (0.7-4.9); Basophils % 0.3 % (0-1.3); Hematocrit 38.5 % (39.6-49.0); Lymphocytes % 2.2 % (15.3-44.8); RBC Red Blood Cell Count 3.93 M/uL (4.33-5.43)
[2019-05-04 08:49] LABS: ALT/SGPT 19 U/L (12-78); AST/SGOT 32 U/L (15-37); Albumin 1.8 g/dL (3.4-5.0); Alkaline Phosphatase 81 U/L (45-117); BUN Blood Urea Nitrogen 42 mg/dL (7-18); Bicarbonate 23 mmol/L (21-32); Bilirubin Total 0.7 mg/dL (0.2-1.0); Glucose Level 139 mg/dL (74-106); Potassium 3.7 mmol/L (3.5-5.1); Protein, Total 5.1 g/dL (6.4-8.2); Sodium Level 155 mmol/L (136-145)
[2019-05-04] MEDS ORDERED: D5 NS IV SCH ×2 (09:00)
[2019-05-04] MEDS ORDERED: NA BICARB IV SCH ×2 (09:00)
[2019-05-04 09:16] LABS: Blood Morphology Comment NOT SEEN (NOT SEEN); Platelet Estimate ADEQ; Urine White Blood Cell Casts OK
[2019-05-04] MEDS: THIAMINE 200 MG/2 ML INJ IVP SCH (09:28)
[2019-05-04] MEDS: FLUCONAZOLE 400 MG IVPB 400 MG/200 ML BAG IV SCH (09:28)
[2019-05-04] MEDS: ENOXAPARIN 40 MG/0.4 ML SQ SCH (09:28)
[2019-05-04] MEDS: HYDROCORTISONE SUC 100 MG INJ IV SCH ×2 (09:29→21:53)
[2019-05-04] MEDS: WATER FOR INJ,STERILE 10 ML IV SCH ×2 (09:29→21:54)
[2019-05-04] MEDS ORDERED: D5W 1,000 ML with NA BICARB 8.4% 100 MEQ IV SCH ×2 (10:00)
--- NOTE | 2019-05-04 10:05 | RAD REPORT ---
EXAM DESCRIPTION: RAD - Abdomen 1 View (KUB) - 05/04/2019 9:41 am CLINICAL HISTORY: Device placement Dobhoff tube placement FINDINGS: A Dobhoff tube within the second portion of the duodenum
--- NOTE | 2019-05-04 10:05 | RAD REPORT ---
EXAM DESCRIPTION: Caleb Single View05/04/2019 9:40 am CLINICAL HISTORY: Chest pain COMPARISON: May 03 FINDINGS: A Dobhoff tube within the second portion of the duodenum PICC line within the proximal superior vena cava No significant change in the bilateral pulmonary opacities. The heart is normal size Mediastinal and hilar lymphadenopathy unchanged IMPRESSION: No significant change in the bilateral pulmonary opacities which may represent pneumonia or pneumonitis
[2019-05-04] MEDS: VANCOMYCIN 1.75 GM in NA CHLORIDE 0.9% 500 ML IVPB SCH ×2 (10:45→23:00)
[2019-05-04 10:57] LABS: Arterial Blood Carboxyhemoglob 0.8 % (0-1.5); Blood Gas Oxyhemoglobin 97.1 % (94-97); Blood O2 Saturation 98.6 % (92-98.5)
[2019-05-04] MEDS ORDERED: VITAL HP 1,000 ML BOT RTH SCH (11:00)
[2019-05-04] MEDS ORDERED: FUROSEMIDE 40 MG/4 ML VIAL IV ONE (11:06)
--- NOTE | 2019-05-04 11:58 | RAD REPORT ---
EXAM DESCRIPTION: XR Chest, 1 View CLINICAL HISTORY: The patient is 69 years old and is Male; S/P PICC insertion TECHNIQUE: Frontal view of the chest. COMPARISON: No relevant prior studies available. FINDINGS: LUNGS: Unremarkable. No consolidation. PLEURAL SPACE: Unremarkable. No pneumothorax. HEART: The cardiac silhouette is enlarged. MEDIASTINUM: Unremarkable. BONES/JOINTS: Unremarkable. VASCULATURE: Prominence of the central vasculature is noted. TUBES, LINES AND DEVICES: A right upper extremity PICC is present with the tip in the region of the SVC. IMPRESSION: 1. A right upper extremity PICC is present with the tip in the region of the SVC. 2. Cardiomegaly with findings suggestive of vascular congestion. Electronically signed by: Corry Stanton MD 05/02/2019 11:48 PM CDT Due to temporary technical issues with the PACS/Fluency reporting system, reports are being signed by the in house radiologist as a courtesy to ensure prompt reporting. The interpreting radiologist is f ully responsible for the content of the report.
--- NOTE | 2019-05-04 12:00 | ECHO ---
HEIGHT: 5 ft 9 in WEIGHT: 223 lb 4.8 oz DATE OF STUDY: 05/04/[address]: Robin Arias MD 2-DIMENSIONAL: YES M.MODE: YES DOPPLER: YES COLOR FLOW: YES TDS: YES PORTABLE: YES DEFINITY: NO BUBBLE STUDY: NO DIAGNOSIS: HYPOTENSION, ATRIAL FIBRILLATION CARDIAC HISTORY: CATHERIZATION: NO SURGERY: NO PROSTHETIC VALVE: NO PACEMAKER: NO MEASUREMENTS (cm) DIASTOLIC (NORMALS) SYSTOLIC (NORMALS) IVSd 1.0 (0.6-1.2) LA Diam 3.2 (1.9-4.0) LVEF 64% LVIDd 3.5 (3.5-5.7) LVIDs 2.3 (2.0-3.5) %FS 34% LVPWd 1.1 (0.6-1.2) Ao Diam 3.1 (2.0-3.7) 2 DIMENSIONAL ASSESSMENT: RIGHT ATRIUM: NORMAL LEFT ATRIUM: NORMAL RIGHT VENTRICLE: NORMAL LEFT VENTRICLE: NORMAL TRICUSPID VALVE: NORMAL MITRAL VALVE: MITRAL ANNULAR CALCFICATION PULMONIC VALVE: NORMAL AORTIC VALVE: SCLEROSIS PERICARDIAL EFFUSION: NONE AORTIC ROOT: NORMAL LEFT VENTRICULAR WALL MOTION: NORMAL DOPPLER/COLOR FLOW: MILD TRICUSPID REGURGITATION. NORMAL RIGHT VENTRICULAR SYSTOLIC PRESSURE. COMMENTS: NORMAL LEFT VENTRICULAR SIZE AND FUNCTION. MITRAL ANNULAR CALCFICATION. AORTIC SCLEROSIS. NO EFFUSION. TECHNOLOGIST: Mesfin DUFFY
--- NOTE | 2019-05-04 12:22 | P.PN ---
Subjective Date of Service: 05/04/19 Primary Care Provider: Unknown Chief Complaint: Per rosalio failure unresponsive Patient is unresponsive he has been weaned off vasopressors for glycemia and resolved Review of Systems is unable to be obtained Physical Examination - Vital Signs Temperature: 100 F Blood Pressure: 104/62 Pulse: 118 Respirations: 22 Pulse Ox (%): 98 - Physical Exam General: Unresponsive Respiratory: Clear to auscultation bilaterally Cardiovascular: Regular rate/rhythm, Normal S1 S2, Edema Gastrointestinal: Normal bowel sounds, Soft and benign - Studies Medications List Reviewed: Yes Assessment & Plan - Problems (Diagnosis) (1) Lung cancer Current Visit: Yes Status: Acute Plan: I strongly suspect that he has lung cancer patient has mediastinal adenopathy with multiple pulmonary nodules and underlying COPD on the CT scan Dc Romero catheter ambulate Qualifiers: Laterality: unspecified laterality Lung location: unspecified part of lung Qualified Code(s): C34.90 - Malignant neoplasm of unspecified part of unspecified bronchus or lung (2) Abnormal chest x-ray Current Visit: Yes Status: Acute Plan: Chest x-ray has improved presume COPD changes (3) Hypercalcemia Current Visit: Yes Status: Acute Plan: Improving status post IV pamidronate (4) Shock Current Visit: Yes Status: Resolved Plan: Shock resolved off vasopressors on steroids all cultures are negative (5) Respiratory failure Current Visit: Yes Status: Acute Plan: Patient's oxygenation is satisfactory is correct (6) Hypernatremia Current Visit: Yes Status: Acute Plan: Start patient on D5 water 75 cc an hr (7) Atrial fibrillation Current Visit: Yes Status: Acute Plan: Patient is i intermittent AFib anti coagulated normal left ventricular function Qualifiers: Atrial fibrillation type: paroxysmal Qualified Code(s): I48.0 - Paroxysmal atrial fibrillation Physician Review Additional Text: Impression: Lactic acidosis likely related to dehydration with noted acute renal injury Hypercalcemia with abnormal CT scan showing bulky lymphadenopathy in the mediastinum and hilar region suspect primary lung malignancy Hypertension COPD Tobacco/alcohol abuse Polymyalgia rheumatica on chronic steroids History of temporal arteritis on chronic steroids Plan: Lactic acidosis likely related to dehydration with noted acute renal injury: -Renal function has improved back to baseline. -repeat lactate today. Acute respiratory failure with hypoxia/pulmonary lymphadenopathy -patient maintained on 3 L of oxygen by nasal canal -case discussed with Dr. Arias. -EBUS as outpatient per Dr. Arias once patient has clinically improved and functional performance is better. -daughter is requesting less invasive PET scan before bronchoscopy. -this can done as an outpatient after discharge. Hypercalcemia -worse to today. -dehydration could be contributing to increased calcium level -suspect hypercalcemia of malignancy. -1 dose palmidronate IV ordered. Hypertension: -hold antihypertensives COPD: -Stable -Continue with bronchodilators. Tobacco/alcohol abuse: -tobacco cessation advised. Polymyalgia rheumatica on chronic steroids: -Prednisone on hold -Check cortisol level. History of temporal arteritis on chronic steroids: -Continue medication including steroids. Atrial fibrillation with RVR -patient was soft blood pressure -RVR did not respond to oral metoprolol. -Hold metoprolol due to hypotension -Cardizem drip as needed. Pulmonary edema/possible pneumonia -trial of IV Lasix yesterday -Dr. Arias input appreciated. -Hold lasix today due to hypotension and dehydration. -status post normal saline bolus x2 -serial chest x-ray. -IV meropenem added to Levaquin to broaden antibiotic coverage Hypotension -status post normal saline bolus x2 -trial of abdomen infusion -vasopressors if no response to the above measures Goals of care: -spent Lengthy time discussing goals of care with the patient and 2 daughters. -ongoing discussion among family regarding overall goals of care. -until family makes a decision regarding hospice, plan is to disposition him to rehab once clinically stable. PET scan to be arranged by his PCP to be done as an outpatient, after which they can pursue tissue diagnosis via EBUS.
[2019-05-04] MEDS: ACETAMINOPHEN 650MG/RECT SUPP PR PRN (15:54)
[2019-05-04 16:24] LABS: Potassium 3.8 mmol/L (3.5-5.1)
--- NOTE | 2019-05-04 17:20 | P.PN ---
Subjective Date of Service: 05/04/19 Primary Care Provider: Unknown Chief Complaint: Per rosalio failure unresponsive Pt seen and examined at bedside this AM. Chart Reviewed. Case Dw with Pulmonology and MPOA at bedside. This AM pt appears to be lethargic and Increase work of breathing. placed on BIPAP now. Review of Systems 10-point ROS is otherwise unremarkable Physical Examination - Vital Signs Temperature: 100.9 F Blood Pressure: 114/69 Pulse: 118 Respirations: 21 Pulse Ox (%): 97 - Physical Exam General: In no apparent distress, Other HEENT: Atraumatic, PERRLA, EOMI Neck: Supple, JVD not distended Respiratory: Normal air movement, Expiratory wheezes, Inspiratory wheezes, Rhonchi/gurgles Cardiovascular: Regular rate/rhythm, Normal S1 S2 Gastrointestinal: Normal bowel sounds, No tenderness Musculoskeletal: Tenderness Integumentary: No rashes Neurological: Normal tone, Normal affect Lymphatics: No axilla or inguinal lymphadenopathy - Studies Medications List Reviewed: Yes Assessment And Plan - Current Problems (Diagnosis) (1) Respiratory failure Current Visit: Yes Status: Acute Plan: Acute respiratory failure with hypoxia/pulmonary lymphadenopathy -patient now on BIPAP -continue with nebs, steroids, and antibiotics -No significant Improvement -Xray with Edema. Qualifiers: Chronicity: acute on chronic Respiratory failure complication: hypoxia and hypercapnia Qualified Code(s): J96.21 - Acute and chronic respiratory failure with hypoxia; J96.22 - Acute and chronic respiratory failure with hypercapnia (2) Lactic acidosis Current Visit: Yes Status: Acute Plan: Lactic acidosis; malnourishment and thiamine deficiency: -supplement folate and thiamine as well as continue with supplementation to improve nourishment -repeat lactate today. (3) Lung cancer Current Visit: Yes Status: Acute Plan: CT scan with Finding concerning for Lung CA -elevated Ca with Recent weight loss and h/o Smoking making NSCLC high On deff -Pulmonology Consulted. Apprecated Reccs -Radiology unable to perform CT guided LN biopsy due to the location of the mass -Outpt Bronch scheduled and PET scan Qualifiers: Laterality: unspecified laterality Lung location: unspecified part of lung Qualified Code(s): C34.90 - Malignant neoplasm of unspecified part of unspecified bronchus or lung (4) History of heavy alcohol consumption Current Visit: Yes Status: Chronic (5) Nicotine dependence Current Visit: Yes Status: Chronic Qualifiers: Nicotine product type: cigarettes Substance use status: uncomplicated Qualified Code(s): F17.210 - Nicotine dependence, cigarettes, uncomplicated (6) PMR (polymyalgia rheumatica) Current Visit: Yes Status: Chronic (7) Peripheral arterial disease Current Visit: Yes Status: Ruled-out (8) Hypertension Current Visit: No Status: Chronic Qualifiers: Hypertension type: essential hypertension Qualified Code(s): I10 - Essential (primary) hypertension (9) Atrial fibrillation Current Visit: Yes Status: Acute Plan: Atrial fibrillation with RVR -RVR did not respond to oral metoprolol. -digoxin started -Now Hypotensive. -Started on Midodrine Qualifiers: Atrial fibrillation type: paroxysmal Qualified Code(s): I48.0 - Paroxysmal atrial fibrillation - Plan patient's prognosis is poor. He may improve with restarting the IV steroids and with supplementation of depleted vitamins he may have some mild clinical improvement but he does have metastatic lung cancer which will probably be unable to be treated. Discussed Hospice Care with MPOA by bedside. Discharge Plan: Other Plan to discharge in: Greater than 2 days - Code Status/Comfort Care Code Status Assessed: Yes Physician Review Additional Text: Impression: Lactic acidosis likely related to dehydration with noted acute renal injury Hypercalcemia with abnormal CT scan showing bulky lymphadenopathy in the mediastinum and hilar region suspect primary lung malignancy Hypertension COPD Tobacco/alcohol abuse Polymyalgia rheumatica on chronic steroids History of temporal arteritis on chronic steroids Plan: Lactic acidosis likely related to dehydration with noted acute renal injury: -Renal function has improved back to baseline. -repeat lactate today. Acute respiratory failure with hypoxia/pulmonary lymphadenopathy -patient maintained on 3 L of oxygen by nasal canal -case discussed with Dr. Arias. -EBUS as outpatient per Dr. Arias once patient has clinically improved and functional performance is better. -daughter is requesting less invasive PET scan before bronchoscopy. -this can done as an outpatient after discharge. Hypercalcemia -worse to today. -dehydration could be contributing to increased calcium level -suspect hypercalcemia of malignancy. -1 dose palmidronate IV ordered. Hypertension: -hold antihypertensives COPD: -Stable -Continue with bronchodilators. Tobacco/alcohol abuse: -tobacco cessation advised. Polymyalgia rheumatica on chronic steroids: -Prednisone on hold -Check cortisol level. History of temporal arteritis on chronic steroids: -Continue medication including steroids. Atrial fibrillation with RVR -patient was soft blood pressure -RVR did not respond to oral metoprolol. -Hold metoprolol due to hypotension -Cardizem drip as needed. Pulmonary edema/possible pneumonia -trial of IV Lasix yesterday -Dr. Arias input appreciated. -Hold lasix today due to hypotension and dehydration. -status post normal saline bolus x2 -serial chest x-ray. -IV meropenem added to Levaquin to broaden antibiotic coverage Hypotension -status post normal saline bolus x2 -trial of abdomen infusion -vasopressors if no response to the above measures Goals of care: -spent Lengthy time discussing goals of care with the patient and 2 daughters. -ongoing discussion among family regarding overall goals of care. -until family makes a decision regarding hospice, plan is to disposition him to rehab once clinically stable. PET scan to be arranged by his PCP to be done as an outpatient, after which they can pursue tissue diagnosis via EBUS. Critical Care: Yes
[2019-05-04] MEDS: ENOXAPARIN 100 MG/ML SYR SQ SCH (21:50)
[2019-05-05] MEDS: Meropenem 1,000 MG in NA CHLORIDE 0.9% 100 ML IV SCH ×3 (00:27→18:22)
[2019-05-05] MEDS: D5W 1,000 ML IV SCH ×4 (02:20→18:22)
[2019-05-05] MEDS: METOPROLOL TAR 25 MG TAB PO SCH ×2 (06:20→18:00)
[2019-05-05 07:05] LABS: Albumin 1.7 g/dL (3.4-5.0); Bilirubin Total 0.6 mg/dL (0.2-1.0); Potassium 3.6 mmol/L (3.5-5.1)
[2019-05-05] MEDS: ARFORMOTEROL TARTRATE 15 MCG/2 ML VIAL.NEB NEB SCH ×2 (07:52→20:20)
--- NOTE | 2019-05-05 08:29 | RAD REPORT ---
EXAM DESCRIPTION: RAD - Chest Single View - 05/05/2019 6:34 am CLINICAL HISTORY: resp failure Chest pain. COMPARISON: Chest Single View dated 05/04/2019; Abdomen 1 View (KUB) dated 05/04/2019; Chest Single Vi ew dated 05/03/2019; Chest Single View dated 05/02/2019 FINDINGS: Portable technique limits examination quality. Right-sided PICC line has tip in the SVC. Enteric tube descends in the stomach. Vague opacities are p resent bilaterally in the lung braga, unchanged. The heart is mildly enlarged in size.
[2019-05-05] MEDS: ENSURE HIGH PROTEIN 237 ML CAN PO SCH (09:00)
[2019-05-05 09:17] LABS: Arterial Blood Carboxyhemoglob 1.1 % (0-1.5); Blood Gas Oxyhemoglobin 92.9 % (94-97); Blood O2 Saturation 94.5 % (92-98.5)
[2019-05-05] MEDS: ACETAMINOPHEN 650MG/RECT SUPP PR PRN (10:35)
[2019-05-05] MEDS: FOLIC ACID 1 MG TABLET PO SCH (10:36)
[2019-05-05] MEDS: THIAMINE 200 MG/2 ML INJ IVP SCH (10:36)
[2019-05-05] MEDS: ENOXAPARIN 100 MG/ML SYR SQ SCH (10:37)
[2019-05-05] MEDS: FLUCONAZOLE 400 MG IVPB 400 MG/200 ML BAG IV SCH (10:38)
[2019-05-05] MEDS: HYDROCORTISONE SUC 100 MG INJ IV SCH (10:38)
[2019-05-05] MEDS ORDERED: LORazepam 2 MG/ML VIAL IV ONE (11:35)
--- NOTE | 2019-05-05 11:58 | P.PN ---
Subjective Date of Service: 05/05/19 Primary Care Provider: Unknown Chief Complaint: Respiratory failure unresponsive Patient is unresponsive hypernatremic worsening renal function Review of Systems is unable to be obtained Physical Examination - Vital Signs Temperature: 100.5 F Blood Pressure: 116/64 Pulse: 97 Respirations: 21 Pulse Ox (%): 96 - Physical Exam General: Unresponsive Respiratory: Clear to auscultation bilaterally Cardiovascular: Normal pulses, Regular rate/rhythm, Edema - Studies Medications List Reviewed: Yes Assessment & Plan - Problems (Diagnosis) (1) Lung cancer Current Visit: Yes Status: Acute Plan: I strongly suspect that he has lung cancer patient has mediastinal adenopathy with multiple pulmonary nodules and underlying COPD on the CT scan Dc Romero catheter ambulate Qualifiers: Laterality: unspecified laterality Lung location: unspecified part of lung Qualified Code(s): C34.90 - Malignant neoplasm of unspecified part of unspecified bronchus or lung (2) Abnormal chest x-ray Current Visit: Yes Status: Acute Plan: Chest x-ray has improved presume COPD changes (3) Respiratory failure Current Visit: Yes Status: Acute Plan: Oxygenation satisfactory patient on BiPAP Qualifiers: Chronicity: acute on chronic Respiratory failure complication: hypoxia and hypercapnia Qualified Code(s): J96.21 - Acute and chronic respiratory failure with hypoxia; J96.22 - Acute and chronic respiratory failure with hypercapnia (4) Hypernatremia Current Visit: Yes Status: Acute Plan: Patient is very hypernatremic worsening renal function most likely dehydrated start on D5 water monitor Chem 7 closely (5) Atrial fibrillation Current Visit: Yes Status: Acute Plan: Patient is in normal sinus rhythm fully anti coagulated Qualifiers: Atrial fibrillation type: paroxysmal Qualified Code(s): I48.0 - Paroxysmal atrial fibrillation Physician Review Additional Text: Impression: Lactic acidosis likely related to dehydration with noted acute renal injury Hypercalcemia with abnormal CT scan showing bulky lymphadenopathy in the mediastinum and hilar region suspect primary lung malignancy Hypertension COPD Tobacco/alcohol abuse Polymyalgia rheumatica on chronic steroids History of temporal arteritis on chronic steroids Plan: Lactic acidosis likely related to dehydration with noted acute renal injury: -Renal function has improved back to baseline. -repeat lactate today. Acute respiratory failure with hypoxia/pulmonary lymphadenopathy -patient maintained on 3 L of oxygen by nasal canal -case discussed with Dr. Arias. -EBUS as outpatient per Dr. Arias once patient has clinically improved and functional performance is better. -daughter is requesting less invasive PET scan before bronchoscopy. -this can done as an outpatient after discharge. Hypercalcemia -worse to today. -dehydration could be contributing to increased calcium level -suspect hypercalcemia of malignancy. -1 dose palmidronate IV ordered. Hypertension: -hold antihypertensives COPD: -Stable -Continue with bronchodilators. Tobacco/alcohol abuse: -tobacco cessation advised. Polymyalgia rheumatica on chronic steroids: -Prednisone on hold -Check cortisol level. History of temporal arteritis on chronic steroids: -Continue medication including steroids. Atrial fibrillation with RVR -patient was soft blood pressure -RVR did not respond to oral metoprolol. -Hold metoprolol due to hypotension -Cardizem drip as needed. Pulmonary edema/possible pneumonia -trial of IV Lasix yesterday -Dr. Arias input appreciated. -Hold lasix today due to hypotension and dehydration. -status post normal saline bolus x2 -serial chest x-ray. -IV meropenem added to Levaquin to broaden antibiotic coverage Hypotension -status post normal saline bolus x2 -trial of abdomen infusion -vasopressors if no response to the above measures Goals of care: -spent Lengthy time discussing goals of care with the patient and 2 daughters. -ongoing discussion among family regarding overall goals of care. -until family makes a decision regarding hospice, plan is to disposition him to rehab once clinically stable. PET scan to be arranged by his PCP to be done as an outpatient, after which they can pursue tissue diagnosis via EBUS.
[2019-05-05 12:22] LABS: Potassium 3.4 mmol/L (3.5-5.1)
[2019-05-05] MEDS ORDERED: VANCOMYCIN 1.75 GM in NA CHLORIDE 0.9% 500 ML IVPB SCH (14:00)
--- NOTE | 2019-05-05 16:57 | P.DS ---
Admission Date: 04/23/19 Discharge Date: 05/05/19 Primary Care Provider: Unknown Reason for Admission: Respiratory failure unresponsive Consultations: Pulmonology Cardiology - Problems (1) Respiratory failure Current Visit: Yes Status: Acute Qualifiers: Chronicity: acute on chronic Respiratory failure complication: hypoxia and hypercapnia Qualified Code(s): J96.21 - Acute and chronic respiratory failure with hypoxia; J96.22 - Acute and chronic respiratory failure with hypercapnia (2) Lactic acidosis Current Visit: Yes Status: Acute (3) Lung cancer Current Visit: Yes Status: Acute Qualifiers: Laterality: unspecified laterality Lung location: unspecified part of lung Qualified Code(s): C34.90 - Malignant neoplasm of unspecified part of unspecified bronchus or lung (4) History of heavy alcohol consumption Current Visit: Yes Status: Chronic (5) Nicotine dependence Current Visit: Yes Status: Chronic Qualifiers: Nicotine product type: cigarettes Substance use status: uncomplicated Qualified Code(s): F17.210 - Nicotine dependence, cigarettes, uncomplicated (6) PMR (polymyalgia rheumatica) Current Visit: Yes Status: Chronic (7) Peripheral arterial disease Current Visit: Yes Status: Ruled-out (8) Hypertension Current Visit: No Status: Chronic Qualifiers: Hypertension type: essential hypertension Qualified Code(s): I10 - Essential (primary) hypertension (9) Atrial fibrillation Current Visit: Yes Status: Acute Qualifiers: Atrial fibrillation type: paroxysmal Qualified Code(s): I48.0 - Paroxysmal atrial fibrillation Brief History of Present Illness: This is a 69-year-old male with past medical history of hypertension, current smoker, heavy alcohol usage, PMR admitted for generalized weakness and anorexia. Per patient, he has chronic pain in his hips bilateral knee is shoulder etc but this pain got progressively worse starting about 3 weeks ago. He has been taking pain medications without pain relief. Then about 1 week ago , he is not really been eating as he does not have an appetite anymore. Since then, he has been getting generally weak. He also endorses dizziness. He also states that he has lost about 10 lb in the past 2 weeks. He denies any chest pain, shortness of breath, headache, new/acute vision changes, speech changes, focal weakness, nausea/vomiting, diarrhea/constipation or other complaints. Now, he can barely get out of bed or walk and therefore he was brought to the emergency room. In the ER, his initial blood pressure was 90/47, heart rate of 107, respirations of 18, afebrile at 98.8 with a pulse ox of 96% on room air. His BMI was 36.49. His labs were remarkable for WBC count of 14.7, neutrophil count elevated at 91.6, creatinine elevated at 1.32, lactic acid level elevated at 8.3, calcium level elevated at 11.4, total bili and direct bili elevated. Pro calcitonin was normal. Chest x-ray was done, showed left lung opacities that may represent pneumonia or mass. A CT chest was done, which showed bulky lymphadenopathy in the mediastinum and hilar regions. These are nonspecific findings but could be related to lymphoma, sarcoid of metastatic disease. A CT head showed a 6 x 3 cm left supraorbital mass extending into the left frontal scalp, possibly representing a mass, inflammation or muscle hypertrophy. In the ER, he received 3.5 L normal saline bolus, Rocephin, azithromycin. At the time of my exam, he was alert oriented x3, his blood pressure was low but stable and he was in mild to moderate distress due to pain in his hip and legs/knees. Of note, patient states that he is a little more than 1 pack per day smoker for the past 50 years and he was drinking a 6 pack of beer per day for about 40 years and quit 2 weeks ago. He denies any other drug usage. He lives at home with his . Hospital Course: This is a 69-year-old male who initially presented to the hospital for generalized weakness and loss of appetite and was admitted to the hospital for possible sepsis and dehydration with concerns of lymph node enlargement in the hilar region in the for region. Patient had a lengthy stay while here in the hospital initial he had on admission patient was found to have elevated lactic acid along with severe dehydration with elevated BUN and creatinine. Initial thought process was patient most likely had lactic acidosis secondary to sepsis and dehydration secondary to poor appetite. Patient had a chest CT done here in the hospital which was consistent with lymph node enlargement in the hilar region concerning for malignancy. Given the history of smoking in the past along with recent weight loss malignancy in the lung was high on differential. Pulmonology was consulted here in the hospital. IR was also consulted here in the hospital. Due to the location of the lymph node enlargement a biopsy was not performed as it was has been high risk and patient was suggested to get outpatient PET scan done. Initially patient presented to the ER with hypercalcemia as lactic acidosis in a KI. The patient was started on IV fluids here in the hospital and had marked improvement initially on his lactic acid along with patient was working with physical therapy however after 48-72 hr here in the hospital patient had a rapid decline and was transferred to the acute respiratory failure most likely secondary to possible pulmonary edema worse of the lung function. Patient was kept on BiPAP in the ICU and IV Lasix was given as well. Patient was also found to have atrial fibrillation with RVR wall in the ICU and was started on beta-silvana at this time. Patient's heart rate was controlled to 90s to 100s however then still remained irregular and patient's blood pressure was becoming more hypotensive at that time patient was started on a pressor and IV fluids were continued. Patient eventually started having worsening of his respiratory status and detailed discussion was done with patient's family regarding further care. Patient at that time he was able to make the decision stated that he would like to go home and does not want have any heroic measures to survive. However patient became altered and the decision was left to the medical power compliance attorney. At that time medical power compliance attorney wanted to continue all efforts and thus patient was continued on IV fluids, pressors, IV antibiotics, and was monitored for next couple of days. Patient however did not have any improvement in his status and then detailed discussion again was done with the family member who done at that time chills for patient to be on hospice care to respect his wishes. [facility] was [facility] and once equipment and everything was set up. Patient was transferred there for further care. While here in the hospital patient also had hypernatremia along with hypercl anemia which was most likely secondary to dehydration and aching to his options. Patient however also had generalized anasarca most likely from multiorgan failure. Patient's prognosis was very poor given the possible diagnosis of metastatic cancer and thus was hospice appropriate. Patient then was transferred to the house with [facility] for further care. Vital Signs/Physical Exam: Temp Pulse Resp BP Pulse Ox 100.5 F 121 H 23 H 81/56 L 93 05/05/19 11:58 05/05/19 13:00 05/05/19 13:00 05/05/19 13:00 05/05/19 13:00 General: Mild distress, Comatose Neck: JVD distended Respiratory: Normal air movement, Expiratory wheezes, Inspiratory wheezes Cardiovascular: Regular rate/rhythm, Normal S1 S2 Gastrointestinal: Normal bowel sounds, No tenderness Musculoskeletal: No tenderness Integumentary: No rashes Neurological: Normal speech, Normal tone, Normal affect Lymphatics: No axilla or inguinal lymphadenopathy Laboratory Data at Discharge: WBC 9.0 K/uL (4.3-10.9) D 05/04/19 08:11 Hgb 12.8 g/dL (13.6-17.9) L 05/04/19 08:11 Hct 38.5 % (39.6-49.0) L 05/04/19 08:11 Plt Count 191 K/uL (152-406) 05/04/19 08:11 PT 13.0 SECONDS (9.5-12.5) H 04/23/19 13:20 INR 1.11 04/23/19 13:20 Sodium 157 mmol/L (136-145) H 05/05/19 11:50 Potassium 3.4 mmol/L (3.5-5.1) L 05/05/19 11:50 BUN 56 mg/dL (7-18) H 05/05/19 11:50 Creatinine 0.90 mg/dL (0.55-1.3) 05/05/19 11:50 Glucose 134 mg/dL (74-106) H 05/05/19 11:50 Phosphorus 2.9 mg/dL (2.5-4.9) 05/03/19 05:58 Magnesium 2.1 mg/dL (1.8-2.4) 05/03/19 05:58 Total Bilirubin 0.6 mg/dL (0.2-1.0) 05/05/19 06:08 AST 31 U/L (15-37) 05/05/19 06:08 ALT 18 U/L (12-78) 05/05/19 06:08 Alkaline Phosphatase 82 U/L (45-117) 05/05/19 06:08 Lipase 775 U/L (73-393) H 04/28/19 05:54 Home Medications: Gabapentin 300 mg PO TID 01/19/19 Lisinopril 30 mg PO DAILY 01/19/19 predniSONE [Prednisone] 20 mg PO BID 01/19/19 Cholecalciferol (Vitamin D3) [Vitamin D 1000 Iu Tab*] 2,000 unit PO DAILY Duloxetine HCl 30 mg PO DAILY 04/23/19 Meloxicam 1 tab PO DAILY 04/23/19 Tizanidine [Zanaflex*] 1 tab PO BEDTIME 04/23/19
[2019-05-05 17:26] LABS: Potassium 3.6 mmol/L (3.5-5.1)
[2019-05-05] MEDS ORDERED: D5W 1,000 ML IV SCH (18:00)
[2019-05-05] MEDS ORDERED: LORazepam 2 MG/ML VIAL IV PRN (19:23)
[2019-05-05 21:20] VITALS: O2SAT 94
[2019-05-16 11:08] VITALS: BP 101/57; TEMP 97.8
== END 2019-05-05 21:19 | disposition hospice, home (50) | DRG 640 ==
LOC: ER 12:53 → ERHOLD 17:25 → 2ND 19:41 → 3RD-ICU 05-01 16:20
PROVIDERS: ADMIT Internal Medicine; ATTEND Family Medicine
PROC: 02HV33Z Insertion of Infusion Device into Superior Vena Cava, Percutaneous Approach (ICD-10-PCS; 2019-05-02)
PROC: 5A09357 Assistance with Respiratory Ventilation, Less than 24 Consecutive Hours, Continuous Positive Airway Pressure (ICD-10-PCS; principal; 2019-05-03)
DX: E87.2 Acidosis (principal); J96.21 Acute and chronic respiratory failure with hypoxia; K85.90 Acute pancreatitis without necrosis or infection, unspecified; J96.22 Acute and chronic respiratory failure with hypercapnia; N17.9 Acute kidney failure, unspecified; C34.90 Malignant neoplasm of unspecified part of unspecified bronchus or lung; R57.9 Shock, unspecified; E51.9 Thiamine deficiency, unspecified; E46 Unspecified protein-calorie malnutrition; E87.0 Hyperosmolality and hypernatremia; I48.0 Paroxysmal atrial fibrillation; I10 Essential (primary) hypertension; E86.0 Dehydration; E83.52 Hypercalcemia; I73.9 Peripheral vascular disease, unspecified; M35.3 Polymyalgia rheumatica; R59.0 Localized enlarged lymph nodes; F17.210 Nicotine dependence, cigarettes, uncomplicated; Z79.52 Long term (current) use of systemic steroids; Z68.33 Body mass index [BMI] 33.0-33.9, adult
CPT/HCPCS: 36415; 51702; 70450; 71045; 71250; 74018; 74176; 80048; 80053; 80076; 80202; 80320; 81003; 81015; 82140; 82330; 82533; 82607; 82652; 82746; 82805; 82962; 83540; 83605; 83690; 83735; 83880; 83970; 84100; 84145; 84439; 84443; 84484; 85025; 85610; 87040; 87086; 87088; 93005; 93306; 93926; 93971; 94640; 94660; 94760; 96361; 96365; 96366; 96368; 97110; 97112; 97116; 97161; 97530; 99285; J0456; J0696; J1160; J1450; J1650; J1720; J1940; J2370; J2430; J2916; J3411; J3475; J7030; J7060; J7512; J7605; P9045